=== PATIENT | female | born 1965 | race American Indian/Alaskan Native ===

== ENCOUNTER 2017-03-31 14:08 | Inpatient (IN) | payer BC ==
[2017-03-31 14:23] VITALS: BMI 29.1
--- NOTE | 2017-03-31 14:34 | C.PDOC ---
History Of Present Illness 51 year old patient, with a past medical history of cardiomyopathy, CAD, COPD, AICD last July, Asthma, Back Problems, CHF, HTN, presents to the ED complaining of chest pain on exertion. Patient states she has been compliant with her blood pressure medications and diuretics, but ran out of her diuretics about 2 days ago. She also notes lower leg and feet swelling today. She is having trouble walking. Patient was admitted in January 2017 for a similar complaint. Time Seen by Provider: 03/31/17 14:14 History Per: Patient Onset/Duration Of Symptoms: Worse Since (today) Current Symptoms Are (Timing): Still Present Initiating Event: Out Of Medications, Other Quality: Tightness Exacerbating Factor(s): Exertion Current Respiratory Medications: See Home Med List Severity: Mild Pain Scale Rating Of: 3 Reports Recently: Hospitalized (January 2017) Recent travel outside of the [place]: No Additional History Per: Prior Records Past Medical History Reviewed: Historical Data, Nursing Documentation, Vital Signs Vital Signs: Last Vital Signs Temp 98.1 F 03/31/17 14:19 Pulse 82 03/31/17 14:19 Resp 20 03/31/17 14:19 BP 143/93 H 03/31/17 14:19 Pulse Ox 97 03/31/17 15:08 - Medical History PMH: Asthma, Back Problems, CHF, HTN Surgical History: Pacemaker - [facility] Procedures FLUOROSCOPY OF LEFT HEART USING LOW OSMOLAR CONTRAST (03/09/16) LOCAL EXCIS BREAST LES (02/16/03) MEASURE OF CARDIAC SAMPL & PRESSURE, L HEART, PERC APPROACH (03/09/16) Family History: States: Unknown Family Hx - Social History Hx Tobacco Use: Yes Hx Alcohol Use: Yes Hx Substance Use: Yes (Smokes Crack Cocaine) - Immunization History Hx Tetanus Toxoid Vaccination: No Hx Influenza Vaccination: No Hx Pneumococcal Vaccination: No Review Of Systems Except As Marked, All Systems Reviewed And Found Negative. Cardiovascular: Positive for: Chest Pain (on exertion), Other (swelling to lower legs and feet bilaterally) Respiratory: Positive for: Shortness of Breath Physical Exam - Physical Exam Appears: Non-toxic, Other (mild respiratory distress) Skin: Warm, Dry Head: Atraumatic, Normacephalic Eye(s): bilateral: Normal Inspection, PERRL, EOMI Oral Mucosa: Moist Neck: Normal ROM, Supple Chest: Symmetrical Cardiovascular: Rhythm Regular Respiratory: Normal Breath Sounds, No Accessory Muscle Use, No Rales, No Rhonchi , No Wheezing Gastrointestinal/Abdominal: Soft, No Tenderness Back: Normal Inspection, No CVA Tenderness Extremity: Normal ROM, Pedal Edema (2+ pitting; bilaterally) Neurological/Psych: Oriented x3, Normal Speech, Normal Cognition, Normal Motor, Normal Sensation Gait: Other (trouble walking due to bilateral feet swelling) ED Course And Treatment - Laboratory Results Result Diagrams: 03/31/17 15:08 03/31/17 15:08 Lab Interpretation: Abnormal Interpretation Of Abnormal: BNP 4620, Troponin normal. ECG: Interpreted By Me ECG Rhythm: Sinus Rhythm (with left axis and LVH), ST/T Changes (T wave inversion I, AVL) ECG Interpretation: Abnormal O2 Sat by Pulse Oximetry: 94 (room air) Pulse Ox Interpretation: Abnormal - Radiology CXR: Interpreted by Me CXR Interpretation: Yes: Cardiomegaly, Other (Vascular congestion) Reevaluation Time: 16:17 Reassessment Condition: Improved - Physician Consult Information Time Consulting Physician Contacted: 16:17 Physician Contacted: Bonnie Amador Outcome Of Conversation: She knows the patient well and will keep her on Tele for cardiac evaluation and diuresis. Medical Decision Making Medical Decision Making: Plan: * EKG * Labs * Chest x-ray * Lasix Disposition - Disposition Disposition: HOSPITALIZED Disposition Time: 16:18 Condition: IMPROVED - POA Present On Arrival: None - Clinical Impression Clinical Impression: Acute CHF (congestive heart failure), Chest pain - Scribe Statement The provider has reviewed the documentation as recorded by the Scribyaritza Nelson Provider Attestation: All medical record entries made by the Suzanibyaritza were at my direction and personally dictated by me. I have reviewed the chart and agree that the record accurately reflects my personal performance of the history, physical exam, medical decision making, and the department course for this patient. I have also personally directed, reviewed, and agree with the discharge instructions and disposition.
--- NOTE | 2017-03-31 14:39 | RAD ---
PROCEDURE: CHEST RADIOGRAPH, 1 VIEW HISTORY: chest pain COMPARISON: 01/08/2017 FINDINGS: LUNGS: Clear. PLEURA: No pneumothorax or pleural fluid seen. CARDIOVASCULAR: Cardiomegaly. AICD. OSSEOUS STRUCTURES: No significant abnormalities. VISUALIZED UPPER ABDOMEN: Normal. OTHER FINDINGS: None. IMPRESSION: No active disease.
[2017-03-31 15:16] LABS: BASO # 0.1 K/uL (0.0-0.2); BASO % 1.2 % (0.0-2.0); EOS # 0.3 K/uL (0.0-0.7); EOS % 3.9 % (0.0-4.0); HEMATOCRIT 42.2 % (34.0-47.0); LYMPH % 13.4 % (20.0-40.0); MEAN CORPUSCULAR HEMOGLOBIN 31.7 pg (27.0-31.0); MEAN CORPUSCULAR HGB CONC 32.6 g/dL (33.0-37.0); MEAN PLATELET VOLUME 10.2 fL (7.2-11.7); MONO # 0.6 K/uL (0.0-0.8); MONO % 7.8 % (0.0-10.0); RED CELL DISTRIBUTION WIDTH 14.9 % (11.5-14.5); WHITE BLOOD COUNT 7.5 K/uL (4.8-10.8)
[2017-03-31 15:23] LABS: CHLORIDE 102 mmol/L (98-107); SODIUM 135 mmol/L (132-148)
[2017-03-31 15:24] LABS: MEAN CELL VOLUME 97.3 fL (81.0-99.0)
[2017-03-31 15:25] LABS: ALB/GLOB RATIO 1.1 (1.0-2.1); AST/SGOT 53 U/L (14-36); BILIRUBIN,TOTAL 0.7 mg/dL (0.2-1.3); CARBON DIOXIDE 23 mmol/L (22-30); GFR AFRICAN-AMERICAN > 60; TOTAL PROTEIN 6.3 g/dL (6.3-8.3)
[2017-03-31 15:26] LABS: ALKALINE PHOSPHATASE 76 U/L (38-126); ALT/SGPT 57 U/L (9-52); BLOOD UREA NITROGEN 16 mg/dL (7-17); CALCIUM 8.4 mg/dl (8.6-10.4); GLUCOSE,RANDOM 103 mg/dL (65-105)
[2017-03-31] MEDS: Enoxaparin 40 mg Syringe SC SCH (22:07)
[2017-04-01 09:35] LABS: CHOLESTEROL 128 mg/dL (0-199)
--- NOTE | 2017-04-01 10:01 | CP.PCM.CON ---
<Marcella Parkinson - Last Filed: 04/01/17 09:37> History of Present Illness - History of Present Illness History of Present Illness: Cardiology Consult Note- Dr. Cotton Reason: Worsening LE edema 51 year old AA female with PMHx of CHF with ICD for EF 25%, CAD, HTN, CONNIE was admitted overnight for chest pain. Cardiology evaluation requested for LE edema. Admits to running out of her Lasix and not taking medication for the past 2 days. Admits to shortness of breath with exertion, which has been worsening past few days along with the lower extremity edema. She sleeps with 2- 3 pillows and cannot lay flat. She is able to walk 1-2 blocks before becoming SOB. Denies waking up in the middle of the night SOB, but admits to using CPAP machine at night. She is able to complete ADLs at home on her own. Admits to sometimes needing help with her IADLs 2/2 SOB. Lives at home with her and daughter, who help her. PMHx: cardiomyopathy, CAD, COPD, CHF w/ICD last July for EF 25%, Asthma, Back Problems, HTN, CONNIE. Surgery Hx: Gastric bypass, 3 C- sections and 2 knee surgeries. Medications: reviewed on EMR. Allergies: none to medications Social Hx: Admits to alcohol use, tobacco use and occasional crack cocaine use. PMD: Dr. Amador. Troponins: 0.0260, 0.0320. CK-MB 3.60, CK 153. BNP 4,620 (2,060 on 01/12/17) EKG 03/31/17: Normal sinus rhythm 81bpm, Possible Left atrial enlargement, Left axis deviation, Left ventricular hypertrophy. CXR 03/31/17: shows no active dz. ECHO 03/10/16: diffuse cardiomyopathy, EF 15%, thickened aortic valve. Cardiac Cath 03/10/16: showed dilated non-ischemic cardiomyopathy with mild mitral insufficiency. Review of Systems - Constitutional Constitutional: absent: Chills, Fatigue, Fever - EENT Eyes: absent: Blurred Vision, Change in Vision - Cardiovascular Cardiovascular: Chest Pain, Dyspnea, Dyspnea on Exertion, Edema, Leg Edema. absent: Palpitations - Respiratory Respiratory: Dyspnea. absent: Cough - Gastrointestinal Gastrointestinal: absent: Abdominal Pain, Constipation, Diarrhea, Nausea, Vomiting - Genitourinary Genitourinary: absent: Difficulty Urinating, Dysuria - Musculoskeletal Musculoskeletal: absent: Numbness, Tingling - Integumentary Integumentary: Swelling. absent: Lesions - Neurological Neurological: Numbness, Tingling. absent: Dizziness, Headaches - Endocrine Endocrine: absent: Fatigue, Palpitations Past Patient History - Infectious Disease Hx of Infectious Diseases: None - Past Medical History & Family History Past Medical History?: Yes - Past Social History Smoking Status: Light Smoker < 10 Cigarettes Daily - CARDIAC Hx Congestive Heart Failure: Yes Hx Hypertension: Yes Hx Pacemaker: Yes - PULMONARY Hx Asthma: Yes - NEUROLOGICAL Hx Neurological Disorder: No - HEENT Hx HEENT Problems: No - RENAL Hx Chronic Kidney Disease: No - ENDOCRINE/METABOLIC Hx Endocrine Disorders: No - HEMATOLOGICAL/ONCOLOGICAL Hx Blood Disorders: No - INTEGUMENTARY Hx Dermatological Problems: No - MUSCULOSKELETAL/RHEUMATOLOGICAL Hx Falls: No - GASTROINTESTINAL Hx Gastrointestinal Disorders: No - GENITOURINARY/GYNECOLOGICAL Hx Genitourinary Disorders: No - PSYCHIATRIC Hx Substance Use: Yes (Smokes Crack Cocaine) - SURGICAL HISTORY Hx Surgeries: Yes Hx Gastric Bypass Surgery: Yes Hx Musculoskeletal Surgery: Yes (Right Carpal tunnel) Other/Comment: Left breast cyst excision - ANESTHESIA Hx Anesthesia: Yes Hx Anesthesia Reactions: No Hx Malignant Hyperthermia: No Meds Allergies/Adverse Reactions: Allergies Allergy/AdvReac Type Severity Reaction Status Date / Time No Known Allergies Allergy Verified 03/31/17 14:45 - Medications Medications: Current Medications Aspirin (Aspirin Chewable) 81 mg PO DAILY [facility] Enoxaparin Sodium (Lovenox) 40 mg SC DAILY [facility] Last Admin: 03/31/17 22:07 Dose: 40 mg Furosemide (Lasix) 40 mg IVP DAILY [facility] Pneumococcal Polyvalent Vaccine (Pneumovax 23 Vaccine) 0.5 ml IM .ONCE ONE Stop: 04/03/17 10:01 Spironolactone (Aldactone) 25 mg PO DAILY [facility] Physical Exam - Constitutional Appears: No Acute Distress - Head Exam Head Exam: NORMAL INSPECTION, NORMOCEPHALIC - Eye Exam Eye Exam: EOMI, Normal appearance - ENT Exam ENT Exam: Mucous Membranes Moist - Neck Exam Neck exam: Positive for: Normal Inspection, Tenderness - Respiratory Exam Respiratory Exam: Clear to Auscultation Bilateral, NORMAL BREATHING PATTERN. absent: Accessory Muscle Use - Cardiovascular Exam Cardiovascular Exam: REGULAR RHYTHM, +S1, +S2 - GI/Abdominal Exam GI & Abdominal Exam: Normal Bowel Sounds, Soft. absent: Tenderness - Extremities Exam Extremities exam: Positive for: pedal edema (2+). Negative for: tenderness - Back Exam Back exam: NORMAL INSPECTION - Neurological Exam Neurological exam: Alert, Oriented x3 - Psychiatric Exam Psychiatric exam: Normal Affect, Normal Mood - Skin Skin Exam: Normal Color, Warm Results - Vital Signs Recent Vital Signs: Last Vital Signs Temp 98.2 F 04/01/17 08:00 Pulse 75 04/01/17 08:00 Resp 20 04/01/17 08:00 BP 134/90 04/01/17 08:00 Pulse Ox 100 04/01/17 08:00 - Labs Result Diagrams: 03/31/17 15:08 03/31/17 15:08 Assessment & Plan - Assessment and Plan (Free Text) Assessment: (1) Acute CHF (congestive heart failure) Assessment and Plan: Patient with dilated cardiomyopathy and ICD placed Jul 2016 for low EF. Monitor on Telemetry. BNP elevated 4,620, compared to 2,060 January 2017. Patient would benefit from diuresis. Continue IV Lasix. Hold beta blockers due to history of cocaine use. ICD interrogated last admission January 2017. Continue: * Lasix 40 mg IVP daily * Aldactone 25 mg PO daily * Start low dose ARB BNP 4,620 (2,060 on 01/12/17) CXR 03/31/17: shows no active dz. EKG 03/31/17: Normal sinus rhythm 81bpm, Possible Left atrial enlargement, Left axis deviation, Left ventricular hypertrophy. ECHO 03/10/16: diffuse cardiomyopathy, EF 15%, thickened aortic valve. Status: Acute (2) Pedal edema Likely secondary to fluid overload. f/u LE venous dopplers. Continue IV Lasix. Status: Acute (3) Chest pain Troponins: 0.0260, 0.0320. CK-MB 3.60, CK 153. EKG 03/31/17: Normal sinus rhythm 81bpm, Possible Left atrial enlargement, Left axis deviation, Left ventricular hypertrophy. CXR 03/31/17: shows no active dz. Cardiac Cath 03/10/16: showed dilated non-ischemic cardiomyopathy with mild mitral insufficiency. Continue: * ASA 81 mg PO daily * Hold beta blockers due to history of cocaine use. Seen and discussed with Dr. Cotton. <Sebastian Cotton - Last Filed: 04/01/17 10:55> Meds - Medications Medications: Current Medications Aspirin (Aspirin Chewable) 81 mg PO DAILY [facility] Last Admin: 04/01/17 10:46 Dose: 81 mg Enoxaparin Sodium (Lovenox) 40 mg SC DAILY [facility] Last Admin: 04/01/17 10:46 Dose: 40 mg Furosemide (Lasix) 40 mg IVP DAILY [facility] Last Admin: 04/01/17 10:45 Dose: 40 mg Losartan Potassium (Cozaar) 25 mg PO DAILY [facility] Last Admin: 04/01/17 10:45 Dose: 25 mg Pneumococcal Polyvalent Vaccine (Pneumovax 23 Vaccine) 0.5 ml IM .ONCE ONE Stop: 04/03/17 10:01 Spironolactone (Aldactone) 25 mg PO DAILY [facility] Last Admin: 04/01/17 10:45 Dose: 25 mg Results - Vital Signs Recent Vital Signs: Last Vital Signs Temp 98.2 F 04/01/17 08:00 Pulse 75 04/01/17 08:00 Resp 20 04/01/17 08:00 BP 139/89 04/01/17 10:45 Pulse Ox 100 04/01/17 08:00 - Labs Result Diagrams: 03/31/17 15:08 04/01/17 08:54 Labs: Laboratory Results - last 24 hr 04/01/17 08:54 Sodium 137 Potassium 3.7 Chloride 100 Carbon Dioxide 28 Anion Gap 13 BUN 22 H Creatinine 1.1 Est GFR ( Amer) > 60 Est GFR (Non-Af Amer) 52 Random Glucose 103 Calcium 7.9 L Total Creatine Kinase 153 H CK-MB (Mass) 3.60 H Troponin I, Quant 0.0320 Triglycerides 44 D Cholesterol 128 LDL Cholesterol Direct 69 HDL Cholesterol 49 Attending/Attestation - Attestation I have personally seen and examined this patient.: Yes I have fully participated in the care of the patient.: Yes I have reviewed all pertinent clinical information: Yes Notes (Text): 04/01/17 10:54 continue lasix no beta-blockers cocaine history
[2017-04-01 10:10] LABS: CHLORIDE 100 mmol/L (98-107)
[2017-04-01 10:11] LABS: POTASSIUM 3.7 mmol/L (3.6-5.2); SODIUM 137 mmol/L (132-148)
[2017-04-01 10:13] LABS: GFR AFRICAN-AMERICAN > 60
[2017-04-01 10:14] LABS: BLOOD UREA NITROGEN 22 mg/dL (7-17); CALCIUM 7.9 mg/dl (8.6-10.4); CARBON DIOXIDE 28 mmol/L (22-30); GLUCOSE,RANDOM 103 mg/dL (65-105)
[2017-04-01] MEDS: Enoxaparin 40 mg Syringe SC SCH (10:46)
--- NOTE | 2017-04-01 17:27 | CP.PCM.HP ---
Present on Admission - Present on Admission Any Indicators Present on Admission: No Review of Systems - Review of Systems Systems not reviewed;Unavailable: Acuity of Condition - Constitutional Constitutional: Fatigue - EENT Eyes: As Per HPI Ears: As Per HPI Nose/Mouth/Throat: As Per HPI - Breasts Breasts: As Per HPI - Cardiovascular Cardiovascular: Chest Pain with Activity, Dyspnea, Pedal Edema - Respiratory Respiratory: Dyspnea, Dyspnea on Exertion, Pain with Coughing - Gastrointestinal Gastrointestinal: As Per HPI - Genitourinary Genitourinary: As Per HPI - Reproductive: Female Reproductive:Female: As Per HPI - Menstruation Menstruation: Post Menopausal - Integumentary Integumentary: As Per HPI - Neurological Neurological: As Per HPI - Psychiatric Psychiatric: As Per HPI - Endocrine Endocrine: As Per HPI - Hematologic/Lymphatic Hematologic: As Per HPI Past Patient History - Infectious Disease Hx of Infectious Diseases: None - Past Medical History & Family History Past Medical History?: Yes - Past Social History Smoking Status: Light Smoker < 10 Cigarettes Daily - CARDIAC Hx Congestive Heart Failure: Yes Hx Hypertension: Yes - PULMONARY Hx Asthma: Yes - NEUROLOGICAL Hx Neurological Disorder: No - HEENT Hx HEENT Problems: No - RENAL Hx Chronic Kidney Disease: No - ENDOCRINE/METABOLIC Hx Endocrine Disorders: No - HEMATOLOGICAL/ONCOLOGICAL Hx Blood Disorders: No - INTEGUMENTARY Hx Dermatological Problems: No - MUSCULOSKELETAL/RHEUMATOLOGICAL Hx Falls: No - GASTROINTESTINAL Hx Gastrointestinal Disorders: No - GENITOURINARY/GYNECOLOGICAL Hx Genitourinary Disorders: No - PSYCHIATRIC Hx Substance Use: Yes (Smokes Crack Cocaine) - SURGICAL HISTORY Hx Surgeries: Yes Hx Gastric Bypass Surgery: Yes Hx Musculoskeletal Surgery: Yes (Right Carpal tunnel) Other/Comment: Left breast cyst excision - ANESTHESIA Hx Anesthesia: Yes Hx Anesthesia Reactions: No Hx Malignant Hyperthermia: No Meds Allergies/Adverse Reactions: Allergies Allergy/AdvReac Type Severity Reaction Status Date / Time No Known Allergies Allergy Verified 03/31/17 14:45 Physical Exam - Constitutional Appears: In Acute Distress - Head Exam Head Exam: NORMAL INSPECTION - Eye Exam Eye Exam: Normal appearance Pupil Exam: NORMAL ACCOMODATION - ENT Exam ENT Exam: Normal Exam - Neck Exam Neck exam: Positive for: Full Rom - Respiratory Exam Respiratory Exam: Decreased Breath Sounds, Rales - Cardiovascular Exam Cardiovascular Exam: REGULAR RHYTHM - GI/Abdominal Exam GI & Abdominal Exam: Normal Bowel Sounds - Rectal Exam Rectal Exam: NORMAL INSPECTION - Extremities Exam Extremities exam: Positive for: pedal edema - Back Exam Back exam: NORMAL INSPECTION - Neurological Exam Neurological exam: Normal Gait - Psychiatric Exam Psychiatric exam: Normal Affect - Skin Skin Exam: Normal Color Results - Vital Signs Recent Vital Signs: Last Vital Signs Temp 98 F 04/01/17 16:51 Pulse 84 04/01/17 16:51 Resp 20 04/01/17 16:51 BP 129/89 04/01/17 16:51 Pulse Ox 98 04/01/17 16:51 - Labs Result Diagrams: 03/31/17 15:08 04/01/17 08:54 Labs: Laboratory Results - last 24 hr 04/01/17 08:54 Sodium 137 Potassium 3.7 Chloride 100 Carbon Dioxide 28 Anion Gap 13 BUN 22 H Creatinine 1.1 Est GFR ( Amer) > 60 Est GFR (Non-Af Amer) 52 Random Glucose 103 Calcium 7.9 L Total Creatine Kinase 153 H CK-MB (Mass) 3.60 H Troponin I, Quant 0.0320 Triglycerides 44 D Cholesterol 128 LDL Cholesterol Direct 69 HDL Cholesterol 49 Assessment & Plan - Assessment and Plan (Free Text) Assessment: ac sob chest pain cardiomyopathy chf cad copd Plan: admit to tele and asper orders - Date & Time Date: 04/01/17 Time: 17:30
--- NOTE | 2017-04-01 22:59 | CARD ---
APPROVED REPORT EKG Measurement Heart [id number] CO [id number] [id number] <Conclusion> Normal sinus rhythm Possible Left atrial enlargement Left axis deviation Left ventricular hypertrophy Abnormal ECG
[2017-04-02 08:07] LABS: POTASSIUM 4.3 mmol/L (3.6-5.2)
[2017-04-02 08:10] LABS: CALCIUM 8.1 mg/dl (8.6-10.4)
--- NOTE | 2017-04-02 10:17 | CP.PCM.PN ---
Subjective - Date & Time of Evaluation Date of Evaluation: 04/02/17 Time of Evaluation: 10:14 - Subjective Subjective: still sob very swallen legs [place] Objective - Vital Signs/Intake and Output Vital Signs (last 24 hours): Temp Pulse Resp BP Pulse Ox 97.7 F 75 18 132/85 98 04/02/17 08:15 04/02/17 08:15 04/02/17 08:15 04/02/17 08:15 04/02/17 08:15 - Medications Medications: Current Medications Aspirin (Aspirin Chewable) 81 mg PO DAILY [facility] Last Admin: 04/01/17 10:46 Dose: 81 mg Carvedilol (Coreg) 6.25 mg PO BID [facility] Last Admin: 04/01/17 17:59 Dose: 6.25 mg Enoxaparin Sodium (Lovenox) 40 mg SC DAILY [facility] Last Admin: 04/01/17 10:46 Dose: 40 mg Furosemide (Lasix) 40 mg IVP DAILY [facility] Last Admin: 04/01/17 10:45 Dose: 40 mg Losartan Potassium (Cozaar) 25 mg PO DAILY [facility] Last Admin: 04/01/17 10:45 Dose: 25 mg Pneumococcal Polyvalent Vaccine (Pneumovax 23 Vaccine) 0.5 ml IM .ONCE ONE Stop: 04/03/17 10:01 Spironolactone (Aldactone) 25 mg PO DAILY [facility] Last Admin: 04/01/17 10:45 Dose: 25 mg - Labs Labs: 04/02/17 07:25 - Constitutional Appears: Non-toxic - Head Exam Head Exam: NORMAL INSPECTION - Eye Exam Eye Exam: Normal appearance Pupil Exam: NORMAL ACCOMODATION - ENT Exam ENT Exam: Mucous Membranes Moist - Neck Exam Neck Exam: Full ROM - Respiratory Exam Respiratory Exam: Decreased Breath Sounds - Cardiovascular Exam Cardiovascular Exam: REGULAR RHYTHM - GI/Abdominal Exam GI & Abdominal Exam: Normal Bowel Sounds - Rectal Exam Rectal Exam: Deferred - Extremities Exam Extremities Exam: Pedal Edema - Back Exam Back Exam: NORMAL INSPECTION - Neurological Exam Neurological Exam: Alert, Normal Gait, Oriented x3 - Psychiatric Exam Psychiatric exam: Normal Affect - Skin Skin Exam: Normal Color - Additional Findings Additional findings: venous dopler negative Assessment and Plan - Assessment and Plan (Free Text) Assessment: alberta salgadot chf coain Plan: as per orders
--- NOTE | 2017-04-02 11:06 | VASCLAB ---
PROCEDURE: Lower Extremity Venous Duplex Exam. HISTORY: BLE Swelling PRIORS: None. TECHNIQUE: Bilateral common femoral, femoral, popliteal and posterior tibial, peroneal and great saphenous veins were evaluated. Flow was assessed with color Doppler, compressibility, assessment of phasic flow and augmentation response. Report prepared by JHON Boles, RVT FINDINGS: RIGHT: 1. Common Femoral Vein: 1.1. Compressibility - Fully compressible: Thrombus - None : Flow - Phasic: Augmentation -Normal: Reflux - None. 2. Femoral Vein: 2.1. Compressibility - Fully compressible: Thrombus - None : Flow - Phasic: Augmentation -Normal: Reflux - None. 3. Popliteal Vein: 3.1. Compressibility - Fully compressible: Thrombus - None : Flow - Phasic: Augmentation -Normal: Reflux - None. 4. Posterior Tibial Vein: 4.1. Compressibility - Fully compressible: Thrombus - None: Flow - Phasic: Augmentation -Normal: Reflux - None. 5. Peroneal Vein: 5.1. Compressibility - Fully compressible: Thrombus - None: Flow - Phasic: Augmentation -Normal: Reflux - None. 6. Great Saphenous Vein: 6.1. Compressibility - Fully compressible: Thrombus - None: Flow - Phasic: Augmentation - Normal: Reflux - None. LEFT: 1. Common Femoral Vein: 1.1. Compressibility - Fully compressible: Thrombus - None: Flow - Phasic: Augmentation -Normal: Reflux - None. 2. Femoral Vein: 2.1. Compressibility - Fully compressible: Thrombus - None: Flow - Phasic: Augmentation -Normal: Reflux - None. 3. Popliteal Vein: 3.1. Compressibility - Fully compressible: Thrombus - None : Flow - Phasic: Augmentation -Normal: Reflux - None. 4. Posterior Tibial Vein: 4.1. Compressibility - Fully compressible: Thrombus - None: Flow - Phasic: Augmentation -Normal: Reflux - None. 5. Peroneal Vein: 5.1. Compressibility - Fully compressible: Thrombus - None: Flow - Phasic: Augmentation -Normal: Reflux - None. 6. Great Saphenous Vein: 6.1. Compressibility - Fully compressible: Thrombus - None: Flow - Phasic: Augmentation - Normal: Reflux - None. OTHER FINDINGS: Right: None significant. Left: None significant. IMPRESSION: Right: No evidence of deep or superficial vein thrombosis of the right lower extremity. Normal valve function noted of the right side. Left: No evidence of deep or superficial vein thrombosis of the left lower extremity. Normal valve function noted of the left side.
[2017-04-02 11:25] LABS: POTASSIUM 4.1 mmol/L (3.6-5.2)
[2017-04-02 11:28] LABS: CALCIUM 8.1 mg/dl (8.6-10.4)
--- NOTE | 2017-04-02 12:09 | CP.PCM.PN ---
<Jan Vargas - Last Filed: 04/02/17 17:14> Subjective - Date & Time of Evaluation Date of Evaluation: 04/02/17 Time of Evaluation: 11:00 - Subjective Subjective: Cardiology Progress Note Dr. Cotton Patient seen and examined at bedside. No acute events overnight. Some LE swelling persists, but improved compared to swelling on arrival. Some SOB persists. Denies chest pain. All other ROS negative. Objective - Vital Signs/Intake and Output Vital Signs (last 24 hours): Temp Pulse Resp BP Pulse Ox 97.7 F 75 18 132/85 98 04/02/17 08:15 04/02/17 08:15 04/02/17 08:15 04/02/17 11:52 04/02/17 08:15 - Medications Medications: Current Medications Aspirin (Aspirin Chewable) 81 mg PO DAILY [facility] Last Admin: 04/02/17 11:51 Dose: 81 mg Calcium/Vitamin D (Oscal-D 250 Mg-125 Units Tab) 1 tab PO DAILY [facility] Carvedilol (Coreg) 6.25 mg PO BID [facility] Last Admin: 04/02/17 11:51 Dose: 6.25 mg Enoxaparin Sodium (Lovenox) 40 mg SC DAILY [facility] Last Admin: 04/01/17 10:46 Dose: 40 mg Furosemide (Lasix) 40 mg IVP DAILY [facility] Last Admin: 04/02/17 11:52 Dose: 40 mg Losartan Potassium (Cozaar) 25 mg PO DAILY [facility] Last Admin: 04/02/17 11:51 Dose: 25 mg Pneumococcal Polyvalent Vaccine (Pneumovax 23 Vaccine) 0.5 ml IM .ONCE ONE Stop: 04/03/17 10:01 Spironolactone (Aldactone) 25 mg PO DAILY [facility] Last Admin: 04/02/17 11:51 Dose: 25 mg - Labs Labs: 04/02/17 11:03 - Constitutional Appears: Non-toxic, No Acute Distress, Chronically Ill - Head Exam Head Exam: ATRAUMATIC, NORMAL INSPECTION, NORMOCEPHALIC - Eye Exam Eye Exam: EOMI, Normal appearance. absent: Conjunctival injection, Scleral icterus Pupil Exam: absent: Irregular, Unequal - ENT Exam ENT Exam: Mucous Membranes Moist - Neck Exam Neck Exam: absent: Tenderness - Respiratory Exam Respiratory Exam: Clear to Ausculation Bilateral, NORMAL BREATHING PATTERN. absent: Accessory Muscle Use, Chest Wall Tenderness, Decreased Breath Sounds, Rales, Rhonchi, Wheezes - Cardiovascular Exam Cardiovascular Exam: REGULAR RHYTHM, RRR, +S1, +S2. absent: Bradycardia, Tachycardia, Irregular Rhythm, +S4 - GI/Abdominal Exam GI & Abdominal Exam: Soft, Normal Bowel Sounds. absent: Distended, Firm, Rigid , Tenderness, Diminished Bowel Sounds, Hyperactive Bowel Sounds, Hypoactive Bowel Sounds - Extremities Exam Extremities Exam: Pedal Edema (+1-2 pitting edema bilaterally). absent: Calf Tenderness, Tenderness - Neurological Exam Neurological Exam: Alert, Awake - Psychiatric Exam Psychiatric exam: Anxious, Normal Affect - Skin Skin Exam: Dry, Intact, Normal Color, Warm Assessment and Plan (1) Acute CHF (congestive heart failure) Assessment & Plan: CXR 03/31/17: shows no active dz. EKG 03/31/17: Normal sinus rhythm 81bpm, Possible Left atrial enlargement, Left axis deviation, Left ventricular hypertrophy. ECHO 03/10/16: diffuse cardiomyopathy, EF 15%, thickened aortic valve. BNP 4,620 (2,060 on 01/12/17) -Patient with dilated cardiomyopathy and ICD placed Jul 2016 for low EF. -Monitor on Telemetry. -BNP elevated 4,620, compared to 2,060 January 2017. -Patient would benefit from diuresis. Continue IV Lasix. -Hold beta blockers due to history of cocaine use. -ICD interrogated last admission January 2017. -Continue: Lasix 40 mg IVP daily, Aldactone 25 mg PO daily, Cozaar Status: Acute (2) Pedal edema Assessment & Plan: -Likely secondary to fluid overload. -LE venous dopplers negative for DVT -Continue IV Lasix. Status: Acute (3) Chest pain Assessment & Plan: Troponins: 0.0260, 0.0320. CK-MB 3.60, CK 153. EKG 03/31/17: Normal sinus rhythm 81bpm, Possible Left atrial enlargement, Left axis deviation, Left ventricular hypertrophy. CXR 03/31/17: shows no active dz. Cardiac Cath 03/10/16: showed dilated non-ischemic cardiomyopathy with mild mitral insufficiency. -Continue ASA 81 mg PO daily -Hold beta blockers due to history of cocaine use. Status: Acute - Assessment and Plan (Free Text) Assessment: Case discussed with Dr. Cotton. <Sebastian Cotton - Last Filed: 04/05/17 17:41> Objective - Vital Signs/Intake and Output Vital Signs (last 24 hours): Temp Pulse Resp BP Pulse Ox 98.2 F 76 20 122/78 98 04/03/17 16:32 04/03/17 17:21 04/03/17 16:32 04/03/17 17:21 04/03/17 16:32 - Labs Labs: 04/03/17 07:11 04/03/17 07:11 Attending/Attestation - Attestation I have personally seen and examined this patient.: Yes I have fully participated in the care of the patient.: Yes I have reviewed all pertinent clinical information, including history, physical exam and plan: Yes Notes (Text): 04/05/17 17:41 Still edema feeling better
[2017-04-02] MEDS: Calcium-Vit D 250 mg-125 Units Tab UD PO SCH (13:47)
[2017-04-02] MEDS: Enoxaparin 40 mg Syringe SC SCH (13:48)
[2017-04-03 00:13] VITALS: RESP 20
--- NOTE | 2017-04-03 06:37 | CP.PCM.PN ---
Subjective - Date & Time of Evaluation Date of Evaluation: 04/03/17 Time of Evaluation: 06:20 - Subjective Subjective: Tolerating PO less edema Objective - Vital Signs/Intake and Output Vital Signs (last 24 hours): Temp Pulse Resp BP Pulse Ox 97.9 F 76 20 142/93 H 97 04/03/17 00:00 04/03/17 00:00 04/03/17 00:00 04/03/17 00:00 04/03/17 00:00 Intake and Output: 04/02/17 04/03/17 18:59 06:59 Intake Total 480 Balance 480 - Medications Medications: Current Medications Acetaminophen (Tylenol 325mg Tab) 650 mg PO Q6 PRN PRN Reason: Pain, moderate (4-7) Last Admin: 04/02/17 19:39 Dose: 650 mg Aspirin (Aspirin Chewable) 81 mg PO DAILY [facility] Last Admin: 04/02/17 11:51 Dose: 81 mg Calcium/Vitamin D (Oscal-D 250 Mg-125 Units Tab) 1 tab PO DAILY [facility] Last Admin: 04/02/17 13:47 Dose: 1 tab Carvedilol (Coreg) 6.25 mg PO BID [facility] Last Admin: 04/02/17 17:48 Dose: 6.25 mg Enoxaparin Sodium (Lovenox) 40 mg SC DAILY [facility] Last Admin: 04/02/17 13:48 Dose: 40 mg Furosemide (Lasix) 40 mg IVP DAILY [facility] Last Admin: 04/02/17 11:52 Dose: 40 mg Losartan Potassium (Cozaar) 25 mg PO DAILY [facility] Last Admin: 04/02/17 11:51 Dose: 25 mg Pneumococcal Polyvalent Vaccine (Pneumovax 23 Vaccine) 0.5 ml IM .ONCE ONE Stop: 04/03/17 10:01 Spironolactone (Aldactone) 25 mg PO DAILY [facility] Last Admin: 04/02/17 11:51 Dose: 25 mg - Labs Labs: 04/02/17 11:03 - Constitutional Appears: Non-toxic - Head Exam Head Exam: NORMOCEPHALIC - Eye Exam Eye Exam: Normal appearance - ENT Exam ENT Exam: Mucous Membranes Moist - Respiratory Exam Respiratory Exam: Rhonchi - Cardiovascular Exam Cardiovascular Exam: REGULAR RHYTHM - GI/Abdominal Exam GI & Abdominal Exam: Normal Bowel Sounds - Extremities Exam Extremities Exam: Pedal Edema - Neurological Exam Neurological Exam: Alert - Psychiatric Exam Psychiatric exam: Normal Affect - Skin Skin Exam: Intact Assessment and Plan (1) Acute CHF (congestive heart failure) Assessment & Plan: ontinue diuresis and chf meds. ICD stable Status: Acute
[2017-04-03 07:37] LABS: HEMATOCRIT 38.2 % (34.0-47.0); MEAN CELL VOLUME 98.6 fL (81.0-99.0); MEAN CORPUSCULAR HEMOGLOBIN 32.3 pg (27.0-31.0); MEAN CORPUSCULAR HGB CONC 32.7 g/dL (33.0-37.0); MEAN PLATELET VOLUME 10.5 fL (7.2-11.7); RED CELL DISTRIBUTION WIDTH 15.5 % (11.5-14.5); WHITE BLOOD COUNT 7.1 K/uL (4.8-10.8)
[2017-04-03 08:01] LABS: POTASSIUM 4.6 mmol/L (3.6-5.2)
[2017-04-03 08:05] LABS: CALCIUM 8.1 mg/dl (8.6-10.4)
[2017-04-03] MEDS ORDERED: Pneumococcal 23-Valent Vaccine IM ONE (10:00)
[2017-04-03] MEDS: Enoxaparin 40 mg Syringe SC SCH (10:08)
[2017-04-03] MEDS: Calcium-Vit D 250 mg-125 Units Tab UD PO SCH (12:37)
--- NOTE | 2017-04-03 13:06 | RAD ---
PROCEDURE: Radiographs of the Chest and Right Ribs. HISTORY: pain under right breast COMPARISON: 03/31/2017. TECHNIQUE: Frontal radiograph of the chest and multiple oblique radiographs of the right ribs were obtained. FINDINGS: RIGHT RIBS: No fracture or focal lesion visualized. LUNGS: Clear. PLEURA: No pneumothorax or pleural fluid. CARDIOVASCULAR: Cardiomegaly. No evidence of acute, significant cardiovascular disease. Position/ configuration of pacemaker Satisfactory. OTHER FINDINGS: None. IMPRESSION: Unremarkable radiographs of the chest and right ribs. No right rib fracture.
--- NOTE | 2017-04-03 14:46 | CP.PCM.PN ---
Subjective - Date & Time of Evaluation Date of Evaluation: 04/03/17 Time of Evaluation: 14:44 - Subjective Subjective: feels beyter less sob Objective - Vital Signs/Intake and Output Vital Signs (last 24 hours): Temp Pulse Resp BP Pulse Ox 98.3 F 73 20 128/75 99 04/03/17 07:32 04/03/17 07:32 04/03/17 07:32 04/03/17 10:07 04/03/17 07:32 Intake and Output: 04/03/17 04/03/17 06:59 18:59 Intake Total 100 Balance 100 - Medications Medications: Current Medications Acetaminophen (Tylenol 325mg Tab) 650 mg PO Q6 PRN PRN Reason: Pain, moderate (4-7) Last Admin: 04/02/17 19:39 Dose: 650 mg Aspirin (Aspirin Chewable) 81 mg PO DAILY [facility] Last Admin: 04/03/17 10:06 Dose: 81 mg Calcium/Vitamin D (Oscal-D 250 Mg-125 Units Tab) 1 tab PO DAILY [facility] Last Admin: 04/03/17 12:37 Dose: 1 tab Carvedilol (Coreg) 6.25 mg PO BID [facility] Last Admin: 04/03/17 10:06 Dose: 6.25 mg Enoxaparin Sodium (Lovenox) 40 mg SC DAILY [facility] Last Admin: 04/03/17 10:08 Dose: 40 mg Furosemide (Lasix) 40 mg IVP DAILY [facility] Last Admin: 04/03/17 10:07 Dose: 40 mg Losartan Potassium (Cozaar) 25 mg PO DAILY [facility] Last Admin: 04/03/17 10:06 Dose: 25 mg Spironolactone (Aldactone) 25 mg PO DAILY [facility] Last Admin: 04/03/17 10:06 Dose: 25 mg - Labs Labs: 04/03/17 07:11 04/03/17 07:11 - Constitutional Appears: Non-toxic - Head Exam Head Exam: NORMAL INSPECTION - Eye Exam Eye Exam: Normal appearance Pupil Exam: NORMAL ACCOMODATION - ENT Exam ENT Exam: Normal Exam - Neck Exam Neck Exam: Normal Inspection - Respiratory Exam Respiratory Exam: Clear to Ausculation Bilateral - Cardiovascular Exam Cardiovascular Exam: REGULAR RHYTHM - GI/Abdominal Exam GI & Abdominal Exam: Normal Bowel Sounds - Rectal Exam Rectal Exam: NORMAL INSPECTION - Extremities Exam Extremities Exam: Pedal Edema - Back Exam Back Exam: NORMAL INSPECTION - Neurological Exam Neurological Exam: Normal Gait - Psychiatric Exam Psychiatric exam: Normal Affect Assessment and Plan - Assessment and Plan (Free Text) Assessment: chf htn cardiomyopathy Plan: disch home today cont all current med f/u in my ofice in one weeke
--- NOTE | 2017-04-03 14:59 | PCM.HF ---
Heart Failure Core Measure - Heart Failure Ejection Fraction: Less Than 40 % JORGE Inhibitor Prescribed: Yes Beta-Ghanshyam Prescribed: Carvedilol Angiotensin II Receptor Ghanshyam Prescribed: No Contraindication/Reason for not providing: on jorge AnticoagulationTherapy for Atrial Fibrillation/Atrialflutter: No Contraindication/Reason for not providing: no hx of afib Aldosterone Antagonist Prescribed: Yes Hydralazine Nitrate Prescribed: No Contraindication/Reason for not providing: BP RUNNING LOW Implantable Cardioverter Defibrillator Therapy: Yes Cardiac Resynchronization Therapy Prescribed: No Contraindication/Reason for not providing: PT HAS ICD - Follow up Will be discharged to: Home Follow Up Date (must be within 7 days from discharge): 04/06/17 Follow Up Time: 09:00
[2017-04-03 16:34] VITALS: TEMP 98.2; O2SAT 98
[2017-04-03 17:21] VITALS: BP 122/78; PULSE 76
--- NOTE | 2017-04-04 20:18 | CARD ---
APPROVED REPORT EXAM: Two-dimensional and M-mode echocardiogram with Doppler and color Doppler. Other Information Quality : GoodRhythm : NSR INDICATION Dyspnea Chest Pain Congestive Heart Failure COPD M-Mode DIMENSIONS RVDd0.80 (2.1-3.2cm)Left Atrium (MM)4.44 (2.5-4.0cm) IVSd0.94 (0.7-1.1cm)Aortic Root2.95 (2.2-3.7cm) LVDd7.43 (4.0-5.6cm)Aortic Cusp Exc.2.22 (1.5-2.0cm) PWd0.97 (0.7-1.1cm)FS (%) 22 % LVDs5.76 (2.0-3.8cm)LVEF (%)44 (>50%) Mitral Valve MV E [id number]/sE/A ratio0.0 TDI E/Lateral E'0.0E/Medial E'0.0 Tricuspid Valve TR Peak [id number]/sTR Peak [id number] LEFT VENTRICLE The Left Ventricle is severely dilated. There is normal left ventricular wall thickness. Left ventricle systolic function is moderately to severely impaired. The Ejection Fraction is 35-40%. There is global hypokinesis of the left ventricle. The left ventricular diastolic function is normal. No left ventricle thrombus noted on this study. RIGHT VENTRICLE The right ventricle is normal size. There is normal right ventricular wall thickness. Systolic function is moderately reduced. ATRIA The left atrium is moderately dilated. The right atrium size is normal. The interatrial septum bows toward right atrium consistent with elevated left atrial pressure. AORTIC VALVE The aortic valve is normal in structure. No aortic regurgitation is present. There is no aortic valvular stenosis. There is no aortic valvular vegetation. MITRAL VALVE The mitral valve is normal in structure. There is no evidence of mitral valve prolapse. There is no mitral valve stenosis. Mitral regurgitation is mild. TRICUSPID VALVE The tricuspid valve is normal in structure. There is mild to moderate tricuspid regurgitation. Right ventricular systolic pressure is estimated at 40-50 mmHg. There is moderate pulmonary hypertension. PULMONIC VALVE The pulmonic valve is not well visualized. There is mild to moderate pulmonic valvular regurgitation. GREAT VESSELS The aortic root is normal in size. PERICARDIAL EFFUSION There is no significant pericardial effusion. <Conclusion> Dilated cardiomyopathy. Left ventricle systolic function is moderately to severely impaired. The Ejection Fraction is 35-40%. No aortic regurgitation is present. Mitral regurgitation is mild. There is mild to moderate tricuspid regurgitation. There is moderate pulmonary hypertension. There is mild to moderate pulmonic valvular regurgitation.
--- NOTE | 2017-04-06 12:45 | CARD ---
APPROVED REPORT EKG Measurement Heart [id number] <Conclusion> Sinus rhythm with occasional premature ventricular complexes Left axis deviation T wave abnormality, consider anterior ischemia Abnormal ECG
== END 2017-04-03 20:46 | disposition home or self-care (01) | DRG 293 ==
LOC: C.ER 14:08 → C.9E 16:12 → C.5T 17:42 → OBSVTOIN 04-02 10:52
PROVIDERS: ADMIT Internal Medicine; ATTEND Internal Medicine
DX: I11.0 Hypertensive heart disease with heart failure (principal); I42.0 Dilated cardiomyopathy; J45.909 Unspecified asthma, uncomplicated; I50.9 Heart failure, unspecified; I25.10 Atherosclerotic heart disease of native coronary artery without angina pectoris; J44.9 Chronic obstructive pulmonary disease, unspecified; Z95.810 Presence of automatic (implantable) cardiac defibrillator; F14.90 Cocaine use, unspecified, uncomplicated; F17.210 Nicotine dependence, cigarettes, uncomplicated; Z98.84 Bariatric surgery status; I34.0 Nonrheumatic mitral (valve) insufficiency

== ENCOUNTER 2017-06-05 13:33 | Observation (INO) | payer BC ==
[2017-06-05 13:33] VITALS: BMI 29.1
[2017-06-05 14:24] LABS: BASO % 0.3 % (0.0-2.0); EOS # 0.1 K/uL (0.0-0.7); EOS % 1.4 % (0.0-4.0); LYMPH # 0.3 K/uL (1.0-4.3); LYMPH % 7.9 % (20.0-40.0); MEAN CELL VOLUME 98.9 fL (81.0-99.0); MEAN CORPUSCULAR HEMOGLOBIN 32.9 pg (27.0-31.0); MEAN CORPUSCULAR HGB CONC 33.3 g/dL (33.0-37.0); MEAN PLATELET VOLUME 9.5 fL (7.2-11.7); MONO # 0.2 K/uL (0.0-0.8); MONO % 5.4 % (0.0-10.0); WHITE BLOOD COUNT 4.1 K/uL (4.8-10.8)
[2017-06-05 14:30] LABS: PLATELET COUNT 126 K/uL (130-400)
[2017-06-05 14:33] LABS: CHLORIDE 97 mmol/L (98-107); SODIUM 139 mmol/L (132-148)
--- NOTE | 2017-06-05 14:34 | C.PDOC ---
History Of Present Illness 51 year old female with a history of HTN and cardiomyopathy presents to the emergency department with complaints of chest pain and shortness of breath beginning this morning. Patient also notes he has a defibrillator and denies fever, palpitations, or other complaints at this time. Time Seen by Provider: 06/05/17 13:47 Chief Complaint (Nursing): Chest Pain History Per: Patient History/Exam Limitations: no limitations Onset/Duration Of Symptoms: Hrs Current Symptoms Are (Timing): Still Present Quality: "Pain" Associated Symptoms: denies: Nausea, Dyspnea, Diaphoresis, Syncope Recent travel outside of the [place]: No Past Medical History Reviewed: Historical Data, Nursing Documentation, Vital Signs Vital Signs: Last Vital Signs Temp 97.8 F 06/05/17 13:41 Pulse 66 06/05/17 13:41 Resp 18 06/05/17 13:41 BP 118/74 06/05/17 13:41 Pulse Ox 99 06/05/17 15:20 - Medical History PMH: Asthma, Back Problems, CHF, HTN Surgical History: Pacemaker Other Surgeries: AICD - [facility] Procedures FLUOROSCOPY OF LEFT HEART USING LOW OSMOLAR CONTRAST (03/09/16) LOCAL EXCIS BREAST LES (02/16/03) MEASURE OF CARDIAC SAMPL & PRESSURE, L HEART, PERC APPROACH (03/09/16) Family History: States: Unknown Family Hx - Social History Hx Tobacco Use: Yes Hx Alcohol Use: No Hx Substance Use: Yes (Smokes Crack Cocaine) - Immunization History Hx Tetanus Toxoid Vaccination: No Hx Influenza Vaccination: No Hx Pneumococcal Vaccination: No Review Of Systems Constitutional: Negative for: Fever, Chills Cardiovascular: Positive for: Chest Pain. Negative for: Palpitations Respiratory: Positive for: Shortness of Breath. Negative for: Cough Gastrointestinal: Negative for: Nausea, Vomiting, Abdominal Pain, Diarrhea Physical Exam - Physical Exam Appears: Non-toxic, No Acute Distress Skin: Warm, Dry Head: Atraumatic Eye(s): bilateral: Normal Inspection, PERRL, EOMI Oral Mucosa: Moist Neck: Supple Chest: Symmetrical, No Deformity Cardiovascular: Rhythm Regular Respiratory: Normal Breath Sounds, No Rhonchi, No Wheezing Gastrointestinal/Abdominal: Soft, No Tenderness, No Distention, No Guarding, No Rebound Extremity: Normal ROM, No Tenderness Neurological/Psych: Oriented x3, Normal Speech, Normal Cognition, Normal Cranial Nerves, Normal Motor, Normal Sensation ED Course And Treatment - Laboratory Results Result Diagrams: 06/05/17 14:16 06/05/17 14:16 Lab Interpretation: No Acute Changes ECG: Interpreted By Me ECG Rhythm: Sinus Rhythm, R BBB, Nonspecific Changes ECG Interpretation: No Acute Changes Rate From EC O2 Sat by Pulse Oximetry: 99 (room air ) Pulse Ox Interpretation: Normal - Radiology CXR: Interpreted by Me CXR Interpretation: Yes: No Acute Disease Progress Note: EKG, CXR, UA, and labs were performed. Reassessment Condition: Improved - Physician Consult Information Physician Contacted: Bonnie Amador Outcome Of Conversation: admit Disposition Discussed With : Bonnie Amador Doctor Will See Patient In The: Hospital - Disposition Disposition: HOSPITALIZED Disposition Time: 15:30 Condition: STABLE - POA Present On Arrival: None - Clinical Impression Clinical Impression: Chest pain, Dyspnea, Cardiomyopathy - Scribe Statement The provider has reviewed the documentation as recorded by the Scribe Mary Massey All medical record entries made by the Scribe were at my direction and personally dictated by me. I have reviewed the chart and agree that the record accurately reflects my personal performance of the history, physical exam, medical decision making, and the department course for this patient. I have also personally directed, reviewed, and agree with the discharge instructions and disposition. Decision To Admit - Pt Status Changed To: Hospital Disposition Of: Observation - . Bed Request Type: Telemetry Admitting Physician: Bonnie Amador Patient Diagnosis: Chest pain, Dyspnea
[2017-06-05 14:35] LABS: BILIRUBIN,TOTAL 0.9 mg/dL (0.2-1.3); GFR AFRICAN-AMERICAN > 60
[2017-06-05 14:36] LABS: ALB/GLOB RATIO 1.1 (1.0-2.1); ALKALINE PHOSPHATASE 63 U/L (38-126); ALT/SGPT 39 U/L (9-52); AST/SGOT 37 U/L (14-36); BLOOD UREA NITROGEN 21 mg/dL (7-17); CARBON DIOXIDE 29 mmol/L (22-30); GLUCOSE,RANDOM 81 mg/dL (65-105)
[2017-06-05 14:37] LABS: CALCIUM 8.5 mg/dl (8.6-10.4)
[2017-06-05 14:38] LABS: RBC URINE 2 /hpf (0-3); URINE BILIRUBIN NEGATIVE (NEGATIVE); URINE BLOOD NEGATIVE (NEGATIVE); URINE COLOR Yellow (YELLOW); URINE GLUCOSE (UA) NORMAL (Normal); URINE KETONE NEGATIVE (NEGATIVE); URINE LEUKOCYTE ESTERASE NEG Leu/uL (Negative); URINE PROTEIN NEGATIVE (NEGATIVE); URINE UROBILINOGEN NORMAL mg/dL (0.2-1.0)
[2017-06-05 14:58] LABS: BASOPHIL 1 % (0-2); EOSINOPHIL 1 % (0-4); NEUTROPHIL 86 % (50-75); TOTAL CELLS COUNTED 100
[2017-06-05 14:59] LABS: LARGE PLATELETS PRESENT
--- NOTE | 2017-06-05 15:16 | RAD ---
HISTORY: COMPARISON: 03/31/2017. TECHNIQUE: Chest PA and lateral FINDINGS: LINES AND TUBES: None. LUNG AND PLEURA: The lungs are well inflated and clear. There are no pleural effusions or pneumothorax. HEART AND MEDIASTINUM: There is persistent moderate cardiomegaly. The hilar and mediastinal contours are within normal limits. There is stable position of a left-sided AICD. SKELETAL STRUCTURES: The bony structures are within normal limits for the patient's age. VISUALIZED UPPER ABDOMEN: Normal. OTHER FINDINGS: None. IMPRESSION: No active pulmonary disease. Persistent moderate cardiomegaly.
[2017-06-05] MEDS: Alum-Mag Hydrox-Simethicone Susp (30 mL) PO PRN (22:43)
[2017-06-06] MEDS: Omega-3-Acid Ethyl Esters 1 GM Cap PO SCH (09:25)
[2017-06-06] MEDS: Multivitamin With Minerals Tab PO SCH (09:25)
[2017-06-06] MEDS: Calcium-Vit D 250 mg-125 Units Tab UD PO SCH (09:26)
--- NOTE | 2017-06-06 10:53 | CP.PCM.HP ---
History of Present Illness - History of Present Illness History of Present Illness: pt came in for sob and chest pain hx of chf defirilator today feels beter wats to go home Present on Admission - Present on Admission Any Indicators Present on Admission: No Review of Systems - Constitutional Constitutional: As Per HPI - EENT Eyes: Floaters Ears: As Per HPI Nose/Mouth/Throat: As Per HPI - Breasts Breasts: As Per HPI - Cardiovascular Cardiovascular: Chest Pain at Rest, Dyspnea - Respiratory Respiratory: Dyspnea - Gastrointestinal Gastrointestinal: As Per HPI - Genitourinary Genitourinary: As Per HPI - Reproductive: Female Reproductive:Female: As Per HPI - Menstruation Menstruation: As Per HPI - Musculoskeletal Musculoskeletal: Arthralgias - Integumentary Integumentary: As Per HPI - Neurological Neurological: As Per HPI - Endocrine Endocrine: As Per HPI - Hematologic/Lymphatic Hematologic: As Per HPI Past Patient History - Infectious Disease Hx of Infectious Diseases: None - Past Medical History & Family History Past Medical History?: Yes - Past Social History Smoking Status: Former Smoker - CARDIAC Hx Congestive Heart Failure: Yes Hx Hypertension: Yes Hx Internal Defibrillator: Yes Hx Pacemaker: Yes - PULMONARY Hx Asthma: Yes - NEUROLOGICAL Hx Neurological Disorder: No - HEENT Hx HEENT Problems: No - RENAL Hx Chronic Kidney Disease: No - ENDOCRINE/METABOLIC Hx Endocrine Disorders: No - HEMATOLOGICAL/ONCOLOGICAL Hx Blood Disorders: No - INTEGUMENTARY Hx Dermatological Problems: No - MUSCULOSKELETAL/RHEUMATOLOGICAL Hx Falls: No - GASTROINTESTINAL Hx Gastrointestinal Disorders: Yes Hx Gastroesophageal Reflux: Yes - GENITOURINARY/GYNECOLOGICAL Hx Genitourinary Disorders: No - PSYCHIATRIC Hx Substance Use: Yes - SURGICAL HISTORY Hx Surgeries: Yes Hx Gastric Bypass Surgery: Yes Hx Musculoskeletal Surgery: Yes (Right Carpal tunnel) Other/Comment: Left breast cyst excision - ANESTHESIA Hx Anesthesia: Yes Hx Anesthesia Reactions: No Hx Malignant Hyperthermia: No Meds Allergies/Adverse Reactions: Allergies Allergy/AdvReac Type Severity Reaction Status Date / Time No Known Allergies Allergy Verified 03/31/17 14:45 Physical Exam - Constitutional Appears: Non-toxic - Head Exam Head Exam: NORMAL INSPECTION - Eye Exam Eye Exam: Normal appearance Pupil Exam: NORMAL ACCOMODATION - ENT Exam ENT Exam: Mucous Membranes Moist - Neck Exam Neck exam: Positive for: Full Rom - Respiratory Exam Respiratory Exam: Decreased Breath Sounds - Cardiovascular Exam Cardiovascular Exam: REGULAR RHYTHM - GI/Abdominal Exam GI & Abdominal Exam: Normal Bowel Sounds - Rectal Exam Rectal Exam: Deferred - Exam Exam: NORMAL INSPECTION - Extremities Exam Extremities exam: Positive for: normal inspection - Back Exam Back exam: NORMAL INSPECTION - Psychiatric Exam Psychiatric exam: Normal Mood - Skin Skin Exam: Normal Color Results - Vital Signs Recent Vital Signs: Last Vital Signs Temp 98.3 F 06/06/17 08:31 Pulse 65 06/06/17 08:31 Resp 20 06/06/17 08:31 BP 128/81 06/06/17 09:26 Pulse Ox 100 06/06/17 08:31 - Labs Result Diagrams: 06/05/17 14:16 06/05/17 14:16 Labs: Laboratory Results - last 24 hr 06/05/17 06/06/17 20:28 04:30 Total Creatine Kinase 57 54 CK-MB (Mass) 1.13 0.83 Troponin I, Quant < 0.0120 < 0.0120 NT-Pro-B Natriuret Pep 1980 H Assessment & Plan - Assessment and Plan (Free Text) Assessment: ac chest pain ischemia chf pace maker hyper glyceamia plan cont as per orders - Date & Time Date: 06/06/17 Time: 11:04
--- NOTE | 2017-06-06 13:48 | CP.PCM.CON ---
History of Present Illness - History of Present Illness History of Present Illness: 51 y/o presents with fatigue and chest pain x 2-3 days: She reports pain around lower rib margins L and R side referred from pain that started around the neck: intermittent, no relation to activity, no associated diaphoresis, edema, congestion, cough, fevers, chills, palpitatin, dizziness or syncope. In addition she experiences fatigue for 2-3 days: no PND or orthopnea. generalized weakness and NYHA 2 dyspnea. Cardiac Hx; Severe NICM, normal coronaries by cath 03/2016; eventually recieved an AICD PMHX: HTN, LIPIDS, Hx of ETOH abuse, prior smoker Surgical history: Gastric bypass SOC: Prior ETOH abuse, Prios smoking, no IVDA ROS: All 12 systems negative except for that in HPI Review of Systems - Review of Systems All systems: reviewed and no additional remarkable complaints except Past Patient History - Infectious Disease Hx of Infectious Diseases: None - Past Medical History & Family History Past Medical History?: Yes - Past Social History Smoking Status: Former Smoker - CARDIAC Hx Congestive Heart Failure: Yes Hx Hypertension: Yes Hx Internal Defibrillator: Yes Hx Pacemaker: Yes - PULMONARY Hx Asthma: Yes - NEUROLOGICAL Hx Neurological Disorder: No - HEENT Hx HEENT Problems: No - RENAL Hx Chronic Kidney Disease: No - ENDOCRINE/METABOLIC Hx Endocrine Disorders: No - HEMATOLOGICAL/ONCOLOGICAL Hx Blood Disorders: No - INTEGUMENTARY Hx Dermatological Problems: No - MUSCULOSKELETAL/RHEUMATOLOGICAL Hx Falls: No - GASTROINTESTINAL Hx Gastrointestinal Disorders: Yes Hx Gastroesophageal Reflux: Yes - GENITOURINARY/GYNECOLOGICAL Hx Genitourinary Disorders: No - PSYCHIATRIC Hx Substance Use: Yes - SURGICAL HISTORY Hx Surgeries: Yes Hx Gastric Bypass Surgery: Yes Hx Musculoskeletal Surgery: Yes (Right Carpal tunnel) Other/Comment: Left breast cyst excision - ANESTHESIA Hx Anesthesia: Yes Hx Anesthesia Reactions: No Hx Malignant Hyperthermia: No Meds Allergies/Adverse Reactions: Allergies Allergy/AdvReac Type Severity Reaction Status Date / Time No Known Allergies Allergy Verified 03/31/17 14:45 - Medications Medications: Current Medications Al Hydrox/Mg Hydrox/Simethicone (Maalox Plus 30 Ml) 30 ml PO DAILY PRN PRN Reason: Indigestion / Heartburn Last Admin: 06/05/17 22:43 Dose: 30 ml Aspirin (Aspirin Chewable) 81 mg PO DAILY [facility] Last Admin: 06/06/17 09:24 Dose: 81 mg Calcium/Vitamin D (Oscal-D 250 Mg-125 Units Tab) 1 tab PO DAILY [facility] Last Admin: 06/06/17 09:26 Dose: 1 tab Carvedilol (Coreg) 6.25 mg PO BID [facility] Last Admin: 06/06/17 09:25 Dose: 6.25 mg Furosemide (Lasix) 20 mg IVP DAILY [facility] Last Admin: 06/06/17 09:26 Dose: 20 mg Multivitamins/Minerals (Therapeutic-M Tab) 1 tab PO DAILY [facility] Last Admin: 06/06/17 09:25 Dose: 1 tab Hmxne-5-Jdeh Ethyl Esters (Lovaza) 1 gm PO DAILY [facility] Last Admin: 06/06/17 09:25 Dose: 1 gm Spironolactone (Aldactone) 25 mg PO DAILY [facility] Last Admin: 06/06/17 09:24 Dose: 25 mg Physical Exam - Constitutional Appears: No Acute Distress - Head Exam Head Exam: ATRAUMATIC, NORMAL INSPECTION, NORMOCEPHALIC - Eye Exam Eye Exam: EOMI, Normal appearance, PERRL - ENT Exam ENT Exam: Mucous Membranes Moist, Normal Oropharynx - Neck Exam Neck exam: Positive for: Normal Inspection. Negative for: Tenderness, Thyromegaly - Respiratory Exam Respiratory Exam: Clear to Auscultation Bilateral, NORMAL BREATHING PATTERN. absent: Rhonchi, Wheezes - Cardiovascular Exam Cardiovascular Exam: REGULAR RHYTHM, +S1, +S2. absent: Gallop, JVD, +S4, Systolic Murmur - GI/Abdominal Exam GI & Abdominal Exam: Normal Bowel Sounds, Soft. absent: Tenderness - Extremities Exam Extremities exam: Positive for: normal inspection. Negative for: calf tenderness, pedal edema - Neurological Exam Neurological exam: Alert, Normal Gait, Oriented x3 - Psychiatric Exam Psychiatric exam: Normal Affect, Normal Mood - Skin Skin Exam: Normal Color, Warm Results - Vital Signs Recent Vital Signs: Last Vital Signs Temp 98.3 F 06/06/17 08:31 Pulse 65 06/06/17 08:31 Resp 20 06/06/17 08:31 BP 128/81 06/06/17 09:26 Pulse Ox 100 06/06/17 08:31 - Labs Result Diagrams: 06/05/17 14:16 06/05/17 14:16 Labs: Laboratory Results - last 24 hr 06/05/17 06/06/17 20:28 04:30 Total Creatine Kinase 57 54 CK-MB (Mass) 1.13 0.83 Troponin I, Quant < 0.0120 < 0.0120 NT-Pro-B Natriuret Pep 1980 H - EKG Data EKG Interpreted by: Myself EKG shows normal: Sinus rhythm (No acute ischemic changes) - Imaging and Cardiology Chest x-ray Status: Image reviewed by me (No congestion, L. upper chest AICD with single lead into the RV) Assessment & Plan - Assessment and Plan (Free Text) Assessment: 1. Acute on chronic non-ischemic cardiomyopathy 2. known normal coronary arteries by cath 03/2016 3. Hx of AICD L. chest wall 3. HTN 4. hx of ETOH abuse in past, Hx of cocaine positve tox in past 5. OR ruled out 6. Exam: No volume overload, edema, chest congestion (CXRAY: WNL) 7. No arrythmia on TELE 8. Labs: normal K+, creat and H/H; NTPBNP: less then prior but c/w with chronic CHF Cardiac Meds reviewed: * Aspirin (Aspirin Chewable) 81 mg PO DAILY [facility] * Carvedilol (Coreg) 6.25 mg PO BID [facility] * Furosemide (Lasix) 20 mg IVP DAILY [facility] * Spironolactone (Aldactone) 25 mg PO DAILY [facility] > BP is 110-120 range: Suggest adding an JORGE-I or ARB low dose and titrate CHF meds as outpatient. > F/U with Dr. Evans next wednesday at 2:00 pm for ongoing eval of AICD and NICM.
[2017-06-06] MEDS: Alum-Mag Hydrox-Simethicone Susp (30 mL) PO PRN (14:45)
[2017-06-07] MEDS: Alum-Mag Hydrox-Simethicone Susp (30 mL) PO PRN (00:19)
[2017-06-07 01:22] VITALS: O2SAT 100
[2017-06-07 06:48] LABS: BLOOD UREA NITROGEN 24 mg/dL (7-17); CALCIUM 8.7 mg/dl (8.6-10.4); CARBON DIOXIDE 33 mmol/L (22-30); CHLORIDE 96 mmol/L (98-107); GFR AFRICAN-AMERICAN > 60; GLUCOSE,RANDOM 89 mg/dL (65-105); POTASSIUM 4.4 mmol/L (3.6-5.2); SODIUM 138 mmol/L (132-148)
[2017-06-07] MEDS: Multivitamin With Minerals Tab PO SCH (10:30)
[2017-06-07] MEDS: Calcium-Vit D 250 mg-125 Units Tab UD PO SCH (10:31)
[2017-06-07] MEDS: Omega-3-Acid Ethyl Esters 1 GM Cap PO SCH (10:31)
--- NOTE | 2017-06-07 15:40 | PCM.HF ---
Heart Failure Core Measure - Heart Failure Ejection Fraction: Less Than 40 % (EF 35-40%) JORGE Inhibitor Prescribed: No Contraindication/Reason for not providing: on ARB Beta-Ghanshyam Prescribed: Carvedilol Angiotensin II Receptor Ghanshyam Prescribed: Yes AnticoagulationTherapy for Atrial Fibrillation/Atrialflutter: No Contraindication/Reason for not providing: no afib Aldosterone Antagonist Prescribed: Yes Hydralazine Nitrate Prescribed: No Contraindication/Reason for not providing: low BP Implantable Cardioverter Defibrillator Therapy: Yes Contraindication/Reason for not providing: AICD Cardiac Resynchronization Therapy Prescribed: No Contraindication/Reason for not providing: not indicated - Follow up Will be discharged to: Home Follow Up Date (must be within 7 days from discharge): 06/10/17 Follow Up Time: 09:00
--- NOTE | 2017-06-07 15:46 | CP.PCM.PN ---
Subjective - Date & Time of Evaluation Date of Evaluation: 06/07/17 Time of Evaluation: 15:47 - Subjective Subjective: alert, awake, ambulatory, NAD. Objective - Vital Signs/Intake and Output Vital Signs (last 24 hours): Temp Pulse Resp BP Pulse Ox 97.8 F 72 18 121/80 100 06/07/17 07:35 06/07/17 07:35 06/07/17 07:35 06/07/17 10:33 06/07/17 07:35 Intake and Output: 06/07/17 06/07/17 06:59 18:59 Intake Total 800 Balance 800 - Medications Medications: Current Medications Al Hydrox/Mg Hydrox/Simethicone (Maalox Plus 30 Ml) 30 ml PO DAILY PRN PRN Reason: Indigestion / Heartburn Last Admin: 06/07/17 00:19 Dose: 30 ml Aspirin (Aspirin Chewable) 81 mg PO DAILY [facility] Last Admin: 06/07/17 10:30 Dose: 81 mg Calcium/Vitamin D (Oscal-D 250 Mg-125 Units Tab) 1 tab PO DAILY [facility] Last Admin: 06/07/17 10:31 Dose: 1 tab Carvedilol (Coreg) 6.25 mg PO BID [facility] Last Admin: 06/07/17 10:31 Dose: 6.25 mg Furosemide (Lasix) 20 mg IVP DAILY [facility] Last Admin: 06/07/17 10:33 Dose: 20 mg Multivitamins/Minerals (Therapeutic-M Tab) 1 tab PO DAILY [facility] Last Admin: 06/07/17 10:30 Dose: 1 tab Mhxez-0-Ritr Ethyl Esters (Lovaza) 1 gm PO DAILY [facility] Last Admin: 06/07/17 10:31 Dose: 1 gm Spironolactone (Aldactone) 25 mg PO DAILY [facility] Last Admin: 06/07/17 10:32 Dose: 25 mg - Labs Labs: 06/07/17 06:17 Assessment and Plan - Assessment and Plan (Free Text) Assessment: Patient is seen and examined. Alert, orientedx3, no sob or chest pain. Seen by the body team member, cleared for discharge. D/W DR Amador, plan to discharge home today. Advised tof/u in the office in 1 week. Also need to f/u with cardiologyst in 1 week, advised to bring all meds to review. CHF core measures done.
[2017-06-07 16:10] VITALS: BP 108/63; PULSE 51; RESP 20; TEMP 98.3
--- NOTE | 2017-06-07 17:44 | CP.PCM.DIS ---
Provider - Provider Date of Admission: 06/05/17 15:21 Attending physician: Bonnie Amador MD Primary care physician: pt came in for chest pain sob had ekg v hypertophy and ischemia por bnp hi rx with lasix alactone and coreg improved will d/c home on same med f/u in [place]ice [place] and with cardiology assac chf cheast pain htn decreased Time Spent in preparation of Discharge (in minutes): 30 Hospital Course - Lab Results Lab Results: Most Recent Lab Values WBC 4.1 K/uL (4.8-10.8) L 06/05/17 14:16 RBC 4.35 Mil/uL (3.80-5.20) 06/05/17 14:16 Hgb 14.3 g/dL (11.0-16.0) 06/05/17 14:16 Hct 43.0 % (34.0-47.0) 06/05/17 14:16 MCV 98.9 fL (81.0-99.0) 06/05/17 14:16 MCH 32.9 pg (27.0-31.0) H 06/05/17 14:16 MCHC 33.3 g/dL (33.0-37.0) 06/05/17 14:16 RDW 14.0 % (11.5-14.5) 06/05/17 14:16 Plt Count 126 K/uL (130-400) L D 06/05/17 14:16 MPV 9.5 fL (7.2-11.7) 06/05/17 14:16 Neut % (Auto) 85.0 % (50.0-75.0) H 06/05/17 14:16 Lymph % (Auto) 7.9 % (20.0-40.0) L 06/05/17 14:16 [place] % (Auto) 5.4 % (0.0-10.0) 06/05/17 14:16 Eos % (Auto) 1.4 % (0.0-4.0) 06/05/17 14:16 Baso % (Auto) 0.3 % (0.0-2.0) 06/05/17 14:16 Neut # 3.5 K/uL (1.8-7.0) 06/05/17 14:16 Lymph # 0.3 K/uL (1.0-4.3) L 06/05/17 14:16 [place] # 0.2 K/uL (0.0-0.8) 06/05/17 14:16 Eos # 0.1 K/uL (0.0-0.7) 06/05/17 14:16 Baso # 0.0 K/uL (0.0-0.2) 06/05/17 14:16 Neutrophils % (Manual) 86 % (50-75) H 06/05/17 14:16 Band Neutrophils % 1 % (0-2) 06/05/17 14:16 Lymphocytes % (Manual) 6 % (20-40) L 06/05/17 14:16 Monocytes % (Manual) 5 % (0-10) 06/05/17 14:16 Eosinophils % (Manual) 1 % (0-4) 06/05/17 14:16 Basophils % (Manual) 1 % (0-2) 06/05/17 14:16 Toxic Granulation Present 06/05/17 14:16 Platelet Estimate Slightly decreased (NORMAL) L 06/05/17 14:16 Large Platelets Present 06/05/17 14:16 Anisocytosis (manual) Slight 06/05/17 14:16 Sodium 138 mmol/L (132-148) 06/07/17 06:17 Potassium 4.4 mmol/L (3.6-5.2) 06/07/17 06:17 Chloride 96 mmol/L (98-107) L 06/07/17 06:17 Carbon Dioxide 33 mmol/L (22-30) H 06/07/17 06:17 Anion Gap 13 (10-20) 06/07/17 06:17 BUN 24 mg/dL (7-17) H 06/07/17 06:17 Creatinine 1.0 MG/DL (0.7-1.2) 06/07/17 06:17 Est GFR ( Amer) > 60 06/07/17 06:17 Est GFR (Non-Af Amer) 58 06/07/17 06:17 Random Glucose 89 mg/dL (65-105) 06/07/17 06:17 Hemoglobin A1c 5.8 % (4.2-6.5) 06/06/17 17:23 Calcium 8.7 mg/dl (8.6-10.4) 06/07/17 06:17 Total Bilirubin 0.9 mg/dL (0.2-1.3) 06/05/17 14:16 AST 37 U/L (14-36) H D 06/05/17 14:16 ALT 39 U/L (9-52) 06/05/17 14:16 Alkaline Phosphatase 63 U/L (38-126) 06/05/17 14:16 Total Creatine Kinase 54 U/L (30-135) 06/06/17 04:30 CK-MB (Mass) 0.83 ng/mL (0.0-3.38) 06/06/17 04:30 Troponin I < 0.0120 ng/mL (0.00-0.120) 06/06/17 14:10 Troponin I, Quant < 0.0120 ng/mL (0.00-0.120) 06/06/17 04:30 NT-Pro-B Natriuret Pep 1750 pg/mL (0-900) H 06/07/17 06:17 Total Protein 7.0 g/dL (6.3-8.3) 06/05/17 14:16 Albumin 3.7 g/dL (3.5-5.0) 06/05/17 14:16 Globulin 3.3 gm/dL (2.2-3.9) 06/05/17 14:16 Albumin/Globulin Ratio 1.1 (1.0-2.1) 06/05/17 14:16 Urine Color Yellow (YELLOW) 06/05/17 14:25 Urine Clarity Clear (Clear) 06/05/17 14:25 Urine pH 6.0 (5.0-8.0) 06/05/17 14:25 Ur Specific Magnet 1.009 (1.003-1.030) 06/05/17 14:25 Urine Protein Negative mg/dL (NEGATIVE) 06/05/17 14:25 Urine Glucose (UA) Normal mg/dL (Normal) 06/05/17 14:25 Urine Ketones Negative mg/dL (NEGATIVE) 06/05/17 14:25 Urine Blood Negative (NEGATIVE) 06/05/17 14:25 Urine Nitrate Negative (NEGATIVE) 06/05/17 14:25 Urine Bilirubin Negative (NEGATIVE) 06/05/17 14:25 Urine Urobilinogen Normal mg/dL (0.2-1.0) 06/05/17 14:25 Ur Leukocyte Esterase Neg Marcos/uL (Negative) 06/05/17 14:25 Urine RBC (Auto) 2 /hpf (0-3) 06/05/17 14:25 Hyaline Casts 3-5 /lpf (0-2) H 06/05/17 14:25 Discharge Exam - Head Exam Head Exam: ATRAUMATIC, NORMAL INSPECTION, NORMOCEPHALIC Discharge Plan - Discharge Medications Prescriptions: Furosemide [Lasix] 20 mg PO DAILY #30 tab - Follow Up Plan Condition: STABLE Disposition: HOME/ ROUTINE Instructions: Furosemide (By mouth), Heart Failure (DC), Chest Pain (DC), Heart Healthy Diet (DC) Additional Instructions: Follow up with stakes player as scheduled. Follow up with Primary Medical Doctor in 1 week Referrals: Ilia Tuttle MD [Staff Provider] - Bonnie Amador MD [Staff Provider] -
--- NOTE | 2017-06-11 19:30 | CARD ---
APPROVED REPORT EKG Measurement Heart [id number] [place] [id number] <Conclusion> Sinus rhythm with frequent APCs Possible Left atrial enlargement Left axis deviation Left ventricular hypertrophy Nonspecific T wave abnormality Abnormal ECG
--- NOTE | 2017-06-11 19:31 | CARD ---
APPROVED REPORT EKG Measurement Heart [id number] [place] 148P66 [id number] <Conclusion> Normal sinus rhythm Biatrial enlargement Left axis deviation Left ventricular hypertrophy T wave abnormality, consider lateral ischemia Abnormal ECG
--- NOTE | 2017-06-11 19:32 | CARD ---
APPROVED REPORT EKG Measurement Heart [id number] 164P67 [id number] <Conclusion> Sinus rhythm with premature atrial complexes Right atrial enlargement Left axis deviation T wave abnormality, consider lateral ischemia Abnormal ECG
--- NOTE | 2017-06-11 19:33 | CARD ---
APPROVED REPORT EKG Measurement Heart [id number] OR 154P63 [id number] <Conclusion> Sinus rhythm with APCs Left axis deviation Moderate voltage criteria for LVH, may be normal variant Nonspecific T wave abnormality Abnormal ECG
--- NOTE | 2017-06-14 08:44 | CARD ---
APPROVED REPORT EKG Measurement Heart [id number] NE 150P71 [id number] <Conclusion> Sinus rhythm with premature atrial complexes Biatrial enlargement Left axis deviation Pulmonary disease pattern Incomplete right bundle branch block Left ventricular hypertrophy Nonspecific T wave abnormality Abnormal ECG
== END 2017-06-07 18:15 | disposition home or self-care (01) ==
LOC: C.ER 13:33 → C.9E 15:21 → C.6T 16:31
PROVIDERS: ADMIT Internal Medicine; ATTEND Internal Medicine
DX: R07.9 Chest pain, unspecified (principal); I42.9 Cardiomyopathy, unspecified; I11.0 Hypertensive heart disease with heart failure; I50.9 Heart failure, unspecified; J45.909 Unspecified asthma, uncomplicated; Z87.891 Personal history of nicotine dependence; Z95.0 Presence of cardiac pacemaker
CPT/HCPCS: 36415; 71020; 80048; 80053; 81001; 82553; 83036; 83880; 84484; 85025; 99285; G0378; J1940

== ENCOUNTER 2017-06-30 20:29 | Inpatient (IN) | payer BC ==
[2017-06-30 20:29] VITALS: BMI 29.1
[2017-06-30] MEDS ORDERED: Sodium Chloride 0.9% 1,000 ML IV ONE (20:46)
--- NOTE | 2017-06-30 20:51 | C.PDOC ---
History Of Present Illness 51 y/o female presents to the ER for heavy drinking and cocaine use tonight. Patient admits to alcohol and drug use. As per family patient c/o SOB, but patient denies SOB. Patient also denies suicidal ideation, homicidal ideation, fever, chills, or chest pain. Time Seen by Provider: 06/30/17 20:53 Chief Complaint (Nursing): Shortness Of Breath History Per: Patient History/Exam Limitations: no limitations Onset/Duration Of Symptoms: Hrs Current Symptoms Are (Timing): Still Present Severity: Mild Associated Symptoms: denies: Fever, Chills, Chest Pain Recent travel outside of the [place]: No Additional History Per: Patient Past Medical History Reviewed: Historical Data, Nursing Documentation, Vital Signs Vital Signs: Last Vital Signs Temp 99.1 F 07/01/17 01:54 Pulse 77 07/01/17 01:54 Resp 18 07/01/17 01:54 BP 142/89 07/01/17 01:54 Pulse Ox 99 07/01/17 01:54 - Medical History PMH: Asthma, Back Problems, CHF, HTN Denies: Chronic Kidney Disease Surgical History: Pacemaker - [facility] Procedures FLUOROSCOPY OF LEFT HEART USING LOW OSMOLAR CONTRAST (03/09/16) LOCAL EXCIS BREAST LES (02/16/03) MEASURE OF CARDIAC SAMPL & PRESSURE, L HEART, PERC APPROACH (03/09/16) Family History: States: Unknown Family Hx - Social History Hx Tobacco Use: Yes Hx Alcohol Use: No Hx Substance Use: Yes - Immunization History Hx Tetanus Toxoid Vaccination: No Hx Influenza Vaccination: No Hx Pneumococcal Vaccination: No Review Of Systems Except As Marked, All Systems Reviewed And Found Negative. Constitutional: Positive for: Other (Alcohol intoxication). Negative for: Fever , Chills Cardiovascular: Negative for: Chest Pain Respiratory: Negative for: Shortness of Breath Psych: Negative for: Suicidal ideation, Other (HOmicidal ideation) Physical Exam - Physical Exam Appears: Non-toxic, No Acute Distress, Other (Alcohol intoxicated, (+) AOB) Skin: Warm, Dry Head: Atraumatic, Normacephalic Cardiovascular: Rhythm Regular Respiratory: Normal Breath Sounds, No Rales, No Rhonchi, No Wheezing Gastrointestinal/Abdominal: Soft, No Tenderness Neurological/Psych: Other (No focal deficit. Somnolent, but easily arousable.) ED Course And Treatment - Laboratory Results Result Diagrams: 06/30/17 20:46 06/30/17 21:00 ECG: Interpreted By Me, Viewed By Me ECG Rhythm: Sinus Rhythm ECG Interpretation: No Acute Changes, Abnormal Interpretation Of ECG: NSR, LAD, NO ACUTE CHANGE. ABNORMAL TRACINGS Rate From EC O2 Sat by Pulse Oximetry: 97 (RA) Pulse Ox Interpretation: Normal Medical Decision Making Medical Decision Making: Impression: 1 y/o female presents to the ER for heavy drinking and cocaine use tonight. Plans: * ED Obs ED OBSERVATION Date of observation admission: 06/30/17 Time of observation admission: 20:59 - Observation admission statement Patient is being placed in observation because:: Alcohol intoxication - Goals of Observation Goals of observation are:: Sobriety Disposition Discussed With : Ashley Briones Doctor Will See Patient In The: Hospital Counseled Patient/Family Regarding: Diagnosis - Disposition Disposition: HOSPITALIZED Disposition Time: 02:55 Condition: STABLE - POA Present On Arrival: None - Clinical Impression Clinical Impression: Depressive episode, Alcohol abuse - Scribe Statement The provider has reviewed the documentation as recorded by the Scribe Fabien gil All medical record entries made by the Suzanibyaritza were at my direction and personally dictated by me. I have reviewed the chart and agree that the record accurately reflects my personal performance of the history, physical exam, medical decision making, and the department course for this patient. I have also personally directed, reviewed, and agree with the discharge instructions and disposition.
[2017-06-30 21:01] LABS: BASO % 0.6 % (0.0-2.0); EOS % 0.5 % (0.0-4.0); LYMPH # 1.6 K/uL (1.0-4.3); LYMPH % 20.5 % (20.0-40.0); MEAN CELL VOLUME 98.2 fL (81.0-99.0); MEAN CORPUSCULAR HEMOGLOBIN 33.4 pg (27.0-31.0); MEAN PLATELET VOLUME 9.3 fL (7.2-11.7); MONO # 0.5 K/uL (0.0-0.8); MONO % 6.1 % (0.0-10.0); NRBC % 0.1 % (0.0-2.0); RED CELL DISTRIBUTION WIDTH 14.4 % (11.5-14.5); WHITE BLOOD COUNT 7.6 K/uL (4.8-10.8)
[2017-06-30 21:09] LABS: CHLORIDE 105 mmol/L (98-107); POTASSIUM 4.2 mmol/L (3.6-5.2); SODIUM 146 mmol/L (132-148)
[2017-06-30 21:11] LABS: BILIRUBIN,TOTAL 0.7 mg/dL (0.2-1.3); GFR AFRICAN-AMERICAN > 60
[2017-06-30 21:12] LABS: ALB/GLOB RATIO 1.1 (1.0-2.1); ALKALINE PHOSPHATASE 83 U/L (38-126); ALT/SGPT 54 U/L (9-52); AST/SGOT 52 U/L (14-36); BLOOD UREA NITROGEN 15 mg/dL (7-17); CALCIUM 8.8 mg/dl (8.6-10.4); CARBON DIOXIDE 22 mmol/L (22-30); GLUCOSE,RANDOM 75 mg/dL (65-105); TOTAL PROTEIN 7.4 g/dL (6.3-8.3)
[2017-06-30 21:13] LABS: ALCOHOL SERUM 277 mg/dl (0-10)
[2017-06-30] MEDS ORDERED: Sodium Chloride 0.9% 1,000 ML ONE (21:30)
[2017-06-30 21:37] LABS: RBC URINE 12 /hpf (0-3); URINE BACTERIA OCC (<OCC); URINE BILIRUBIN NEGATIVE (NEGATIVE); URINE BLOOD 1+ (NEGATIVE); URINE COLOR Yellow (YELLOW); URINE GLUCOSE (UA) NORMAL (Normal); URINE KETONE NEGATIVE (NEGATIVE); URINE LEUKOCYTE ESTERASE TRACE Leu/uL (Negative); URINE PROTEIN 3+ mg/dL (NEGATIVE); URINE UROBILINOGEN NORMAL mg/dL (0.2-1.0); WBC URINE 10 /hpf (0-5)
--- NOTE | 2017-07-01 04:05 | PCM.BM ---
<Davon Raza - Last Filed: 07/01/17 04:03> Treatment Plan Problems - Problems identified on initial assessmt Depression Date Initiated: 07/01/17 Time Initiated: 04:03 Assessment reference: NA Status: Active Substance Abuse Date Initiated: 07/01/17 Time Initiated: 04:04 Assessment reference: NA Status: Active Treatment assets and liabiliti Patient Assests: cooperative, self-reliant, ADL independent, cognitively intact Patient Liabilities: financial problems, poor support system, relationship conflicts, dietary restrictions, substance abuse, medical problems - Milieu Protocol Maintain good personal hygiene: daily Encourage regular showers, daily Remind patient to perform daily oral care, daily Assist patient to perform ADL's Maintain personal safety: every shift Educate patient to report safety concerns to staff, every shift Monitor environment for contraband/sharps Medication safety: Monitor for expected outcome, potential side effects: every shift, Assess barriers to learning: every shift, Assess readiness for medication education: every shift <Yari Evans - Last Filed: 07/01/17 13:20> Family Contact Family involvement: Family/SO is involved Discharge/Continuing Care - Education Needs Education Needs: Patient Medication, Patient Coping Skills, Patient Community resources - Discharge Discharge Criteria: Tolerates medication w/o severe side effects, Free of Suicidal thoughts, Reduction of target symptoms
--- NOTE | 2017-07-01 10:02 | RAD ---
HISTORY: DOLL WIGS HACKLER SOB COMPARISON: 06/05/2017 FINDINGS: LUNGS: Interval increased central pulmonary venous congestion suggested. . No consolidation PLEURA: No significant pleural effusion identified, no pneumothorax apparent. CARDIOVASCULAR: Similar moderate cardiomegaly and AICD pacemaker device OSSEOUS STRUCTURES: Thoracic spondylosis -unchanged VISUALIZED UPPER ABDOMEN: Normal. OTHER FINDINGS: None. IMPRESSION: Interval increased central pulmonary venous congestion. No pleural effusions. No consolidation Moderate cardiomegaly with AICD pacemaker device
[2017-07-01 10:14] LABS: BASO # 0.1 K/uL (0.0-0.2); BASO % 1.3 % (0.0-2.0); EOS # 0.1 K/uL (0.0-0.7); EOS % 2.4 % (0.0-4.0); LYMPH # 1.3 K/uL (1.0-4.3); LYMPH % 21.3 % (20.0-40.0); MEAN CORPUSCULAR HEMOGLOBIN 33.2 pg (27.0-31.0); MEAN CORPUSCULAR HGB CONC 33.8 g/dL (33.0-37.0); MEAN PLATELET VOLUME 10.1 fL (7.2-11.7); MONO # 0.8 K/uL (0.0-0.8); MONO % 12.1 % (0.0-10.0); RED CELL DISTRIBUTION WIDTH 14.2 % (11.5-14.5); WHITE BLOOD COUNT 6.3 K/uL (4.8-10.8)
[2017-07-01 10:30] LABS: CHLORIDE 103 mmol/L (98-107); SODIUM 142 mmol/L (132-148)
[2017-07-01 10:31] LABS: POTASSIUM 4.4 mmol/L (3.6-5.2)
[2017-07-01 10:32] LABS: BILIRUBIN,TOTAL 1.1 mg/dL (0.2-1.3); GFR AFRICAN-AMERICAN > 60
[2017-07-01 10:33] LABS: ALB/GLOB RATIO 1.1 (1.0-2.1); ALKALINE PHOSPHATASE 67 U/L (38-126); ALT/SGPT 48 U/L (9-52); AST/SGOT 54 U/L (14-36); BLOOD UREA NITROGEN 15 mg/dL (7-17); CALCIUM 9.1 mg/dl (8.6-10.4); CARBON DIOXIDE 25 mmol/L (22-30); GLUCOSE,RANDOM 88 mg/dL (65-105); MAGNESIUM 1.8 mg/dL (1.6-2.3); PHOSPHOROUS 3.7 mg/dL (2.5-4.5)
[2017-07-01 11:03] LABS: THYROID STIMULATING HORMONE 3.19 mIU/L (0.46-4.68)
--- NOTE | 2017-07-01 11:33 | PCM.RRTMUL ---
LEGAL JOB TITLES Nurses Assessment - Vital Signs Blood Pressure:: 162/111 Pulse Rate:: 102 Respiratory Rate:: 20 I.Reason for LEGAL JOB TITLES - A) Acute Change in Patient: (Select all that apply): Staff member or family is worried about patient, Chest Pain (with lightheadedness, palpitations and sob) - A) Initial Vital Signs: Temperature: 98 F Pulse Rate: 84 Respiratory Rate: 19 Oxygen Saturation: 96 - B) Neurological Status (Select all that apply): Alert, Responsive, Oriented, Verbal, Follows Commands, Lethargic, Weakness - C) Respiratory Oxygen Delivery Method: Nasal Cannula @L/min (2) - Constitutional Appears: Non-toxic, In Acute Distress - Head Head Exam: ATRAUMATIC, NORMOCEPHALIC - Eyes Eye Exam: EOMI - Respiratory Exam Respiratory Exam: Clear to Ausculation Bilateral. absent: Accessory Muscle Use , Rales, Wheezes, Respiratory Distress, NORMAL BREATHING PATTERN (Patient taking short, quick breathes) - Cardiovascular Exam Cardiovascular Exam: Irregular Rhythm (multiple PVCs on ekg), +S1, +S2 - Neurological Exam Neurological Exam: Alert, Awake - Extremities Exam Extremities Exam: absent: Calf Tenderness, Joint Swelling, Pedal Edema Plan - A. End of LEGAL JOB TITLES Vital Signs: Blood Pressure: 161/111 Pulse Rate: 92 Respiratory Rate: 21 Temperature: 98.3 F - B. Assessment of Findings&Treatment Plan LEGAL JOB TITLES was called on [facility]. She was admitted to psych last night for depression, cocaine and excessive alcohol intake. Rapid was called because the patient was complaining of chest pain, palpitations, lightheadedness and shortness of breathe. Upon arrival, patient was sitting hunched over in a chair in the hallway while wearing oxygen. Patient was awake and able to answer questions. She stated that she was experiencing chest pain that started in the left side of her chest and radiated towards the right shoulder and into her back. Patient was taken into her room where a chest x ray and ekg were performed. CXR showed no acute changes. EKG showed new PVCs. Patient has a cardiac history of systolic CHF and implanted AICD. Orders: CXR, EKG, CBC, CMP, BNP (3250), mag (1.8), phos (3.7), TSH (3.19) and ROMIs x 3 First TOMMY @940 was negative at 0.0260 (repeat ROMIs/EKGs are ordered for 1540 and 2140) Hydralazine 10mg IVP was given for an increasing an BP 161/111. The medication was gvien once the patient was transferred to the 6th floor because she did not have IV access while on the Psych floor. Patient was transferred to telemetry in room 659-A for further observation. Dr. Bonnie Amador is the patient's PMD. She was called, informed of the incident and has accepted the patient on her service. Dr. Barnes (cardio) has seen the patient in the past. He was called, informed of the incident and accepted a consult to see the patient.
--- NOTE | 2017-07-01 11:40 | PCM.PSYCH ---
Initial Psychiatric Evaluation - Initial Psychiatric Evaluation Type of Admission: Voluntary Legal Status: Capacity Chief Complaint (in patient's own words): "I was feeling depressing and wanted to hurt myself" Patient's Reaction to Hospitalization: cooperative History of Present Illness and Precipitating Events: Patient is a 51 year old female with pmh of depression, asthma, CHF, AICD ( placed in 2015) whose son called EMS when she was intoxicated and talking about hurting herself. Patient says this was the first time she thought about hurting herself. She has had no suicide attempts in the past. Patient says she has been depressed in the past and was hospitalized once for depression about 10 years ago. When her father 8 years ago she said she felt very depressed. Patient says she drink a few glasses to a bottle of wine most days, but not ever day. She has been drinking alcohol since she was 14 but rarely drank from the ages of [age]. She started drinking heavily in her early 50s but is unsure of what triggered the drinking. She also admits to some cocaine use. She said she does it occasionally and started doing it about 1 year ago. She used to live with her but is now living with her son because her is in rehab for drugs. She said her old living situation was not good for her because her used drugs and his sister who lived downstairs also used drugs. She is very anxious about his drug use and about him returning from rehab. Today patient is very tired. She says she feels "disgusted" that she let her depression go so far as to want to hurt herself. She is not having any thoughts of hurting herself, SI, or HI now. She has never had any visual or auditory hallucinations. PMH: asthma, CHF, AICD (placed in 2016) Social: alcohol: 3 glasses to 1 bottle, most days, cocaine occasionally, denies other drugs living with son because is in rehab Current Medications: Active Medications Generic Name Dose Route Start Last Admin Trade Name Freq PRN Reason Stop Dose Admin Aspirin 81 mg 07/01/17 11:15 Aspirin Chewable PO DAILY [facility] Calcium/Vitamin D 1 tab 07/01/17 11:15 Oscal-D 250 Mg-125 Units Tab PO DAILY [facility] Carvedilol 6.25 mg 07/01/17 11:15 Coreg PO BID SANDI Chlordiazepoxide 25 mg 07/01/17 12:00 Librium PO 07/06/17 11:59 Q6 SANDI Taper Chlordiazepoxide 25 mg 07/01/17 11:00 Librium PO Q4H PRN Alcohol Withdrawal Clonidine HCl 0.1 mg 07/01/17 11:00 Catapres PO Q4H PRN Symptoms of alcohol withdrawl Folic Acid 1 mg 07/01/17 11:00 Folic Acid PO DAILY [facility] Furosemide 20 mg 07/01/17 11:15 Lasix PO DAILY [facility] Hydroxyzine HCl 25 mg 07/01/17 03:47 07/01/17 04:11 Atarax PO 25 mg Q6 PRN Administration Anxiety Ibuprofen 600 mg 07/01/17 03:45 07/01/17 05:02 Motrin Tab PO 600 mg Q6 PRN Administration Pain, moderate (4-7) Multivitamins 1 tab 07/01/17 11:00 Hexavitamin PO DAILY [facility] Multivitamins/Minerals 1 tab 07/01/17 12:00 Therapeutic-M Tab PO DAILY [facility] Spironolactone 25 mg 07/01/17 11:15 Aldactone PO DAILY [facility] Thiamine HCl 100 mg 07/01/17 11:00 Vitamin B1 Tab PO DAILY [facility] Trazodone HCl 50 mg 07/01/17 11:00 Desyrel PO HS PRN Insomnia Past Psychiatric History - Past Psychiatric History Previous Treatment History: None Pertinent Medical Hx (Current Medical&Sleep Prob, Allergies): Allergies Allergy/AdvReac Type Severity Reaction Status Date / Time No Known Allergies Allergy Verified 06/30/17 20:38 [place]-3 Fatty Acids/Fish Oil [[place] 3 Fish Oil Softgel] 1 tab PO DAILY 03/09/16 Multivit,Iron,Min 5/Folic Acid [Strovite Forte Caplet] 1 tab PO DAILY #30 tablet 01/12/17 Aspirin [Aspirin Chewable] 81 mg PO DAILY #30 04/03/17 Calcium Carbonate/Vitamin D [Oscal-D 250 mg-125 Units Tab] 1 tab PO DAILY tab 04/03/17 Carvedilol [Coreg] 6.25 mg PO BID #60 tab 04/03/17 Spironolactone [Aldactone] 25 mg PO DAILY #30 tab 04/03/17 Furosemide [Lasix] 20 mg PO DAILY #30 tab 06/07/17 Review of Systems - Psychiatric Psychiatric: Anxiety, Depression, Suicidal Ideation. absent: Auditory Hallucinations, Homicidal Ideation, Hopelessness, Irritability, Paranoia, Visual Hallucinations Mental Status Examination - Personal Presentation Personal Presentation: Looks stated age - Affect Affect: Broad - Motor Activity Motor Activity: Calm - Reliability in Providing Information Reliability in Providing Information: Good - Speech Speech: Organized - Mood Mood: Depressed, Anxious - Formal Thought Process Formal Thought Process: No Impairment - Obsessions/Compulsions Obsessions: No Compulsions: No - Cognitive Functions Orientation: Person, Place, Situation, Time Sensorium: Alert Attention/Concentration: Attentive Abstract Thinking: [place] Estimate of Intelligence: Average Judgement: Intact, as evidence by: Insight regarding need for hospitalization Memory: Recent intact, as evidence by: Ability to recall events of the day - Risk Risk: Suicidal, Withdrawal - Strength & Assets Inventory Strength & Assets Inventory: Family support DSM 5 DX - DSM 5 DSM 5 Diagnosis: Major Depressive Disorder Alcohol abuse disorder Cocaine abuse disorder Alcohol withdrawal - Recommended/Plan of Treatment Treatment Recommendations and Plan of Treatment: Major Depressive Disorder Zoloft 50 mg Atarax 25 mg PO PRN Trazodone 50 mg PO HS Alcohol withdrawal Librium taper 32min Prognosis: good with medications - Smoking Cessation Smoking Cessation Initiated: No
[2017-07-01] MEDS: Multiple Vitamins Tab PO SCH (11:46)
[2017-07-01] MEDS: Calcium-Vit D 250 mg-125 Units Tab UD PO SCH (12:10)
[2017-07-01] MEDS: Multivitamin With Minerals Tab PO SCH (15:38)
--- NOTE | 2017-07-01 15:53 | PCM.RRTMUL ---
MANAGER PROGRAM Nurses Assessment - Situation Location:: [facility] MANAGER PROGRAM Reason for Call: Chest Pain - Diagnostic Test Ordered EKG:: Yes - Vital Signs Blood Pressure:: 200/99 Pulse Rate:: 82 Respiratory Rate:: 20 Temperature:: 98.8 F - A) Initial Vital Signs: Temperature: 98.8 F Pulse Rate: 82 Respiratory Rate: 20 Oxygen Saturation: 100 - B) Neurological Status (Select all that apply): Alert - C) Respiratory Oxygen Delivery Method: Nasal Cannula @L/min (2) - Constitutional Appears: In Acute Distress (hands grabbing the right side of her chest. ) - Head Head Exam: ATRAUMATIC, NORMOCEPHALIC - Respiratory Exam Respiratory Exam: Clear to Ausculation Bilateral, Respiratory Distress (Patient tachypneic ), NORMAL BREATHING PATTERN. absent: Accessory Muscle Use, Wheezes - Cardiovascular Exam Cardiovascular Exam: REGULAR RHYTHM, +S1, +S2 - Neurological Exam Neurological Exam: Alert, Awake - Extremities Exam Extremities Exam: absent: Joint Swelling, Pedal Edema Plan - A. End of MANAGER PROGRAM Vital Signs: Blood Pressure: 143/102 Pulse Rate: 83 Respiratory Rate: 20 Temperature: 98.8 F O2 Sat by Pulse Oximetry: 100 - B. Assessment of Findings&Treatment Plan The patient is complaining of chest pain that radiates from the left side of her chest to the right side as well to her back. These are the same symptoms the patient was experiencing earlier this morning when a MANAGER PROGRAM was call approximately 6 hours earlier. Her first set of troponins were negative. It has been 5 hours and 50 minutes since the first set of tropoins were done, repeat troponins drawn now. In addition to troponins being drawn, a D-dimer will be sent as well. A repeat EKG was done at the bedside which showed no changes from previous EKGs except there are currently no PVCs as compared to this morning. Patient's BP was elevated at 200/99 at the start of the MANAGER PROGRAM. She was given Ativan 1mg IV. Labs were sent and will be followed up by resident. BP came down to 143/102 by the time were sent.
[2017-07-01] MEDS ORDERED: Iodixanol 320 MG/ML 100 ML BOTTLE IV ONE (17:19)
--- NOTE | 2017-07-01 19:27 | CT ---
EXAM: CT Angiography Chest With Intravenous Contrast EXAM DATE/TIME: Exam ordered 07/01/2017 5:02 PM CLINICAL HISTORY: 51 years old, female; Pain and signs and symptoms; Shortness of breath; Chest pain; Type not specified; Additional info: SOB with elevated d-dimer TECHNIQUE: Axial computed tomographic angiography images of the chest with intravenous contrast using pulmonary embolism protocol. All CT scans at this facility use one or more dose reduction techniques, viz.: automated exposure control; ma/kV adjustment per patient size (including targeted exams where dose is matched to indication; i.e. head); or iterative reconstruction technique. MIP reconstructed images were created and reviewed. Coronal and sagittal reformatted images were created and reviewed. CONTRAST: 100 mL of VISIPAQUE 320 administered intravenously. COMPARISON: CR - CHEST PORTABLE 03/09/2016 6:33:34 PM FINDINGS: Pulmonary arteries: Unremarkable. No pulmonary embolism. Aorta: No acute findings. No thoracic aortic aneurysm. Lungs: There is an area of discoid atelectasis/scar in the lingula. A 3 mm ground glass nodule is noted in the anterior segment left upper lobe (series 4 image 45). A 3 mm groundglass nodule is noted in the posterior segment of the right upper lobe (series 4 image 44). Pleural space: Unremarkable. No significant effusion. No pneumothorax. Heart: The heart is moderate to severely enlarged. No significant pericardial effusion. No evidence of RV dysfunction. Bones/joints: Degenerative changes are noted of the thoracic spine. No acute fracture. No dislocation. Soft tissues: The pacemaker is implanted within the soft tissues of the left upper chest. Lymph nodes: Unremarkable. No enlarged lymph nodes. Stomach and bowel: Surgical clips in the region of the stomach suggest previous gastric bypass surgery. Tubes, lines and devices: there is a dual-chamber chamber pacemaker/AICD device via left subclavian approach. IMPRESSION: 1. No pulmonary embolism. 2. Bilateral ground glass pulmonary nodules. Recommend follow-up chest CT at 3-6 months to confirm persistence. If stable, chest CT at 2 and 4 years. 3. Moderate to severe cardiomegaly
--- NOTE | 2017-07-01 20:40 | CP.PCM.HP ---
History of Present Illness - History of Present Illness History of Present Illness: pt initialy admited to psych for stress depresion then transfred to telemetry for ht failiure palpitation today had chest pain sob Present on Admission - Present on Admission Any Indicators Present on Admission: No Review of Systems - Review of Systems Systems not reviewed;Unavailable: Acuity of Condition - Constitutional Constitutional: Fatigue - EENT Eyes: As Per HPI Ears: As Per HPI Nose/Mouth/Throat: As Per HPI - Breasts Breasts: As Per HPI - Cardiovascular Cardiovascular: Chest Pain at Rest, Dyspnea, Palpitations - Respiratory Respiratory: Dyspnea, Dyspnea on Exertion - Gastrointestinal Gastrointestinal: Dyspepsia - Genitourinary Genitourinary: As Per HPI - Reproductive: Female Reproductive:Female: As Per HPI - Menstruation Menstruation: As Per HPI - Musculoskeletal Musculoskeletal: As Per HPI - Integumentary Integumentary: As Per HPI - Neurological Neurological: As Per HPI - Psychiatric Psychiatric: Anxiety, Depression - Endocrine Endocrine: As Per HPI - Hematologic/Lymphatic Additional comments: aneamia Past Patient History - Infectious Disease Hx of Infectious Diseases: None - Past Medical History & Family History Past Medical History?: Yes - Past Social History Smoking Status: Light Smoker < 10 Cigarettes Daily - CARDIAC Hx Congestive Heart Failure: Yes Hx Hypertension: Yes Hx Hypotension: No Hx Pacemaker: Yes (AICD) - PULMONARY Hx Asthma: Yes - NEUROLOGICAL HX Cerebrovascular Accident: No Hx Seizures: No - HEENT Hx HEENT Problems: No - RENAL Hx Chronic Kidney Disease: No - ENDOCRINE/METABOLIC Hx Endocrine Disorders: No - HEMATOLOGICAL/ONCOLOGICAL Hx Cancer: No Hx Human Immunodeficiency Virus (HIV): No - INTEGUMENTARY Hx Dermatological Problems: No - MUSCULOSKELETAL/RHEUMATOLOGICAL Hx Falls: No - GASTROINTESTINAL Hx Gastrointestinal Disorders: Yes Hx Gastroesophageal Reflux: Yes - GENITOURINARY/GYNECOLOGICAL Hx Sexually Transmitted Disorders: No - PSYCHIATRIC Hx Substance Use: Yes (Smoked cocaine) - SURGICAL HISTORY Hx Surgeries: Yes Hx Gastric Bypass Surgery: Yes Hx Musculoskeletal Surgery: Yes (Right Carpal tunnel) Other/Comment: Left breast cyst excision - ANESTHESIA Hx Anesthesia: Yes Hx Anesthesia Reactions: No Hx Malignant Hyperthermia: No Meds Allergies/Adverse Reactions: Allergies Allergy/AdvReac Type Severity Reaction Status Date / Time No Known Allergies Allergy Verified 06/30/17 20:38 Physical Exam - Constitutional Appears: Non-toxic - Head Exam Head Exam: NORMAL INSPECTION - Eye Exam Eye Exam: Normal appearance Pupil Exam: NORMAL ACCOMODATION - ENT Exam ENT Exam: Mucous Membranes Moist - Neck Exam Neck exam: Positive for: Normal Inspection - Respiratory Exam Respiratory Exam: Decreased Breath Sounds, Clear to Auscultation Bilateral - Cardiovascular Exam Cardiovascular Exam: REGULAR RHYTHM - GI/Abdominal Exam GI & Abdominal Exam: Normal Bowel Sounds - Rectal Exam Rectal Exam: NORMAL INSPECTION - Exam Exam: NORMAL INSPECTION External exam: NORMAL EXTERNAL EXAM - Extremities Exam Extremities exam: Positive for: normal inspection - Back Exam Back exam: NORMAL INSPECTION - Neurological Exam Neurological exam: Oriented x3 - Psychiatric Exam Psychiatric exam: Anxious, Depressed - Skin Skin Exam: Normal Color Results - Vital Signs Recent Vital Signs: Last Vital Signs Temp 98.8 F 07/01/17 16:01 Pulse 83 07/01/17 16:01 Resp 20 07/01/17 16:01 BP 143/102 H 07/01/17 16:01 Pulse Ox 100 07/01/17 15:32 - Labs Result Diagrams: 07/01/17 10:05 07/01/17 10:05 Labs: Laboratory Results - last 24 hr 07/01/17 07/01/17 07/01/17 09:28 10:05 10:05 WBC 6.3 RBC 4.08 Hgb 13.5 Hct 40.0 MCV 98.0 MCH 33.2 H MCHC 33.8 RDW 14.2 Plt Count 142 MPV 10.1 Neut % (Auto) 62.9 Lymph % (Auto) 21.3 [place] % (Auto) 12.1 H Eos % (Auto) 2.4 Baso % (Auto) 1.3 Neut # 3.9 Lymph # 1.3 [place] # 0.8 Eos # 0.1 Baso # 0.1 D-Dimer, Quantitative Sodium 142 Potassium 4.4 Chloride 103 Carbon Dioxide 25 Anion Gap 18 BUN 15 Creatinine 0.6 L Est GFR ( Amer) > 60 Est GFR (Non-Af Amer) > 60 POC Glucose (mg/dL) 94 Random Glucose 88 Calcium 9.1 Phosphorus 3.7 Magnesium 1.8 Total Bilirubin 1.1 AST 54 H ALT 48 Alkaline Phosphatase 67 Total Creatine Kinase 157 H CK-MB (Mass) 1.74 Troponin I, Quant 0.0260 NT-Pro-B Natriuret Pep 3250 H Total Protein 7.0 Albumin 3.6 Globulin 3.4 Albumin/Globulin Ratio 1.1 TSH 3rd Generation 3.19 07/01/17 07/01/17 15:36 15:53 WBC RBC Hgb Hct MCV MCH MCHC RDW Plt Count MPV Neut % (Auto) Lymph % (Auto) [place] % (Auto) Eos % (Auto) Baso % (Auto) Neut # Lymph # [place] # Eos # Baso # D-Dimer, Quantitative 251 H Sodium Potassium Chloride Carbon Dioxide Anion Gap BUN Creatinine Est GFR ( Amer) Est GFR (Non-Af Amer) POC Glucose (mg/dL) Random Glucose Calcium Phosphorus Magnesium Total Bilirubin AST ALT Alkaline Phosphatase Total Creatine Kinase 138 H CK-MB (Mass) 1.35 Troponin I, Quant < 0.0120 NT-Pro-B Natriuret Pep Total Protein Albumin Globulin Albumin/Globulin Ratio TSH 3rd Generation Assessment & Plan - Assessment and Plan (Free Text) Assessment: nonischemic cardiomypathy chf htn depresion anesxiety Plan: as per orders - Date & Time Date: 07/01/17 Time: 20:45
--- NOTE | 2017-07-01 23:29 | CP.PCM.CON ---
History of Present Illness - History of Present Illness History of Present Illness: CC: Dyspnea, Respiratory insufficiency HPI: 51 F with hx of Non ischemic CMP, EF 20%, s/p AICD, HTN, Drug abuse transferred after rapid response what appears as acute on chronic systolic CHF Review of Systems - Constitutional Constitutional: absent: As Per HPI, Anorexia, Chills, Daytime Sleepiness, Excessive Sweating, Fatigue, Fever, Frequent Falls, Headache, Increased Appetite , Lethargy, Malaise, Night Sweats, Snoring, Sleep Apnea, Weight Gain, Weight Loss, Weakness, Other - EENT Eyes: absent: As Per HPI, Blind Spots, Blurred Vision, Change in Vision, Decreased Night Vision, Diplopia, Discharge, Dry Eye, Exophthalmos, Floaters, Irritation, Itchy Eyes, Loss of Peripheral Vision, Pain, Photophobia, Requires Corrective Lenses, Sees Flashes, Spots in Vision, Tunnel Vision, Other Visual Disturbances, Loss of Vision, Other Ears: absent: As Per HPI, Decreased Hearing, Ear Discharge, Ear Pain, Tinnitus, Abnormal Hearing, Disequilibrium, Dizziness, Other Nose/Mouth/Throat: absent: As Per HPI, Epistaxis, Nasal Congestion, Nasal Discharge, Nasal Obstruction, Nasal Trauma, Nose Pain, Post Nasal Drip, Sinus Pain, Sinus Pressure, Bleeding Gums, Change in Voice, Dental Pain, Dry Mouth, Dysphagia, Halitosis, Hoarsness, Lip Swelling, Mouth Lesions, Mouth Pain, Odynophagia, Sore Throat, Throat Swelling, Tongue Swelling, Facial Pain, Neck Pain, Neck Mass, Other - Cardiovascular Cardiovascular: Dyspnea - Respiratory Respiratory: Dyspnea - Gastrointestinal Gastrointestinal: absent: As Per HPI, Abdominal Pain, Belching, Bloating, Change in Bowel Habits, Change in Stool Character, Coffee Ground Emesis, Constipation, Cramping, Diarrhea, Dyspepsia, Dysphagia, Early Satiety, Excessive Flatus, Fecal Incontinence, Heartburn, Hematemesis, Hematochezia, Loose Stools, Melena, Nausea, Odynophagia, Temesmus, Vomiting, Other - Musculoskeletal Musculoskeletal: absent: As Per HPI, Abnormal Gait, Arthralgias, Atrophy, Back Pain, Deformity, Joint Swelling, Limited Range of Motion, Loss of Height, Muscle Cramps, Muscle Weakness, Myalgias, Neck Pain, Numbness, Radiating Pain into Limb, Stiffness, Tingling, Other - Neurological Neurological: absent: Behavioral Changes Past Patient History - Infectious Disease Hx of Infectious Diseases: None - Past Medical History & Family History Past Medical History?: Yes - Past Social History Smoking Status: Light Smoker < 10 Cigarettes Daily - CARDIAC Hx Congestive Heart Failure: Yes Hx Hypertension: Yes Hx Hypotension: No Hx Pacemaker: Yes (AICD) - PULMONARY Hx Asthma: Yes - NEUROLOGICAL HX Cerebrovascular Accident: No Hx Seizures: No - HEENT Hx HEENT Problems: No - RENAL Hx Chronic Kidney Disease: No - ENDOCRINE/METABOLIC Hx Endocrine Disorders: No - HEMATOLOGICAL/ONCOLOGICAL Hx Cancer: No Hx Human Immunodeficiency Virus (HIV): No - INTEGUMENTARY Hx Dermatological Problems: No - MUSCULOSKELETAL/RHEUMATOLOGICAL Hx Falls: No - GASTROINTESTINAL Hx Gastrointestinal Disorders: Yes Hx Gastroesophageal Reflux: Yes - GENITOURINARY/GYNECOLOGICAL Hx Sexually Transmitted Disorders: No - PSYCHIATRIC Hx Substance Use: Yes (Smoked cocaine) - SURGICAL HISTORY Hx Surgeries: Yes Hx Gastric Bypass Surgery: Yes Hx Musculoskeletal Surgery: Yes (Right Carpal tunnel) Other/Comment: Left breast cyst excision - ANESTHESIA Hx Anesthesia: Yes Hx Anesthesia Reactions: No Hx Malignant Hyperthermia: No Meds Allergies/Adverse Reactions: Allergies Allergy/AdvReac Type Severity Reaction Status Date / Time No Known Allergies Allergy Verified 06/30/17 20:38 - Medications Medications: Current Medications Aspirin (Aspirin Chewable) 81 mg PO DAILY [facility] Last Admin: 07/01/17 11:46 Dose: 81 mg Calcium/Vitamin D (Oscal-D 250 Mg-125 Units Tab) 1 tab PO DAILY [facility] Last Admin: 07/01/17 12:10 Dose: 1 tab Carvedilol (Coreg) 6.25 mg PO BID [facility] Last Admin: 07/01/17 18:08 Dose: 6.25 mg Chlordiazepoxide (Librium) 25 mg PO Q6 [facility] PRN Reason: Taper Stop: 07/06/17 11:59 Last Admin: 07/01/17 18:08 Dose: 25 mg Chlordiazepoxide (Librium) 25 mg PO Q4H PRN PRN Reason: Alcohol Withdrawal Clonidine HCl (Catapres) 0.1 mg PO Q4H PRN PRN Reason: Symptoms of alcohol withdrawl Enoxaparin Sodium (Lovenox) 40 mg SC DAILY [facility] Folic Acid (Folic Acid) 1 mg PO DAILY [facility] Last Admin: 07/01/17 11:46 Dose: 1 mg Furosemide (Lasix) 20 mg PO DAILY [facility] Last Admin: 07/01/17 11:46 Dose: 20 mg Hydroxyzine HCl (Atarax) 25 mg PO Q6 PRN PRN Reason: Anxiety Last Admin: 07/01/17 04:11 Dose: 25 mg Ibuprofen (Motrin Tab) 600 mg PO Q6 PRN PRN Reason: Pain, moderate (4-7) Last Admin: 07/01/17 05:02 Dose: 600 mg Multivitamins (Hexavitamin) 1 tab PO DAILY [facility] Last Admin: 07/01/17 11:46 Dose: 1 tab Multivitamins/Minerals (Therapeutic-M Tab) 1 tab PO DAILY [facility] Last Admin: 07/01/17 15:38 Dose: 1 tab Spironolactone (Aldactone) 25 mg PO DAILY [facility] Last Admin: 07/01/17 11:46 Dose: 25 mg Thiamine HCl (Vitamin B1 Tab) 100 mg PO DAILY [facility] Last Admin: 07/01/17 15:42 Dose: 100 mg Trazodone HCl (Desyrel) 50 mg PO HS PRN PRN Reason: Insomnia Physical Exam - Head Exam Head Exam: ATRAUMATIC - Eye Exam Eye Exam: EOMI, PERRL - ENT Exam ENT Exam: Mucous Membranes Moist - Respiratory Exam Respiratory Exam: NORMAL BREATHING PATTERN - Cardiovascular Exam Cardiovascular Exam: REGULAR RHYTHM, +S1, +S2. absent: JVD - GI/Abdominal Exam GI & Abdominal Exam: Normal Bowel Sounds, Soft - Neurological Exam Neurological exam: Alert, CN II-XII Intact - Skin Skin Exam: Warm Results - Vital Signs Recent Vital Signs: Last Vital Signs Temp 98.8 F 07/01/17 16:01 Pulse 83 07/01/17 16:01 Resp 20 07/01/17 16:01 BP 125/77 07/01/17 22:00 Pulse Ox 100 07/01/17 15:32 - Labs Result Diagrams: 07/01/17 10:05 07/02/17 07:00 Labs: Laboratory Results - last 24 hr 07/01/17 07/01/17 07/01/17 09:28 10:05 10:05 WBC 6.3 RBC 4.08 Hgb 13.5 Hct 40.0 MCV 98.0 MCH 33.2 H MCHC 33.8 RDW 14.2 Plt Count 142 MPV 10.1 Neut % (Auto) 62.9 Lymph % (Auto) 21.3 [place] % (Auto) 12.1 H Eos % (Auto) 2.4 Baso % (Auto) 1.3 Neut # 3.9 Lymph # 1.3 [place] # 0.8 Eos # 0.1 Baso # 0.1 D-Dimer, Quantitative Sodium 142 Potassium 4.4 Chloride 103 Carbon Dioxide 25 Anion Gap 18 BUN 15 Creatinine 0.6 L Est GFR ( Amer) > 60 Est GFR (Non-Af Amer) > 60 POC Glucose (mg/dL) 94 Random Glucose 88 Calcium 9.1 Phosphorus 3.7 Magnesium 1.8 Total Bilirubin 1.1 AST 54 H ALT 48 Alkaline Phosphatase 67 Total Creatine Kinase 157 H CK-MB (Mass) 1.74 Troponin I, Quant 0.0260 NT-Pro-B Natriuret Pep 3250 H Total Protein 7.0 Albumin 3.6 Globulin 3.4 Albumin/Globulin Ratio 1.1 TSH 3rd Generation 3.19 07/01/17 07/01/17 07/01/17 15:36 15:53 22:47 WBC RBC Hgb Hct MCV MCH MCHC RDW Plt Count MPV Neut % (Auto) Lymph % (Auto) [place] % (Auto) Eos % (Auto) Baso % (Auto) Neut # Lymph # [place] # Eos # Baso # D-Dimer, Quantitative 251 H Sodium Potassium Chloride Carbon Dioxide Anion Gap BUN Creatinine Est GFR ( Amer) Est GFR (Non-Af Amer) POC Glucose (mg/dL) Random Glucose Calcium Phosphorus Magnesium Total Bilirubin AST ALT Alkaline Phosphatase Total Creatine Kinase 138 H 108 CK-MB (Mass) 1.35 1.25 Troponin I, Quant < 0.0120 0.0140 NT-Pro-B Natriuret Pep Total Protein Albumin Globulin Albumin/Globulin Ratio TSH 3rd Generation Assessment & Plan - Assessment and Plan (Free Text) Assessment: 1. Acute on Chronic systolic CHF 2. HTN Continue IV lasix Case will be transferred to Dr. Evans/Marry
[2017-07-02 07:42] LABS: CHLORIDE 100 mmol/L (98-107); POTASSIUM 4.2 mmol/L (3.6-5.2); SODIUM 140 mmol/L (132-148)
[2017-07-02 07:44] LABS: GFR AFRICAN-AMERICAN > 60
[2017-07-02 07:45] LABS: BLOOD UREA NITROGEN 19 mg/dL (7-17); CALCIUM 8.8 mg/dl (8.6-10.4); CARBON DIOXIDE 31 mmol/L (22-30); GLUCOSE,RANDOM 98 mg/dL (65-105)
[2017-07-02] MEDS: Multivitamin With Minerals Tab PO SCH (09:12)
[2017-07-02] MEDS: Calcium-Vit D 250 mg-125 Units Tab UD PO SCH (09:13)
[2017-07-02] MEDS: Multiple Vitamins Tab PO SCH (09:13)
[2017-07-02] MEDS: Enoxaparin 40 mg Syringe SC SCH (10:59)
[2017-07-02 11:22] LABS: FREE T4 1.09 ng/dL (0.78-2.19)
[2017-07-02 11:35] LABS: THYROID STIMULATING HORMONE 3.08 mIU/L (0.46-4.68)
--- NOTE | 2017-07-02 11:46 | CP.PCM.PN ---
Subjective - Date & Time of Evaluation Date of Evaluation: 07/02/17 Time of Evaluation: 11:43 - Subjective Subjective: in bed loganearyaritza depresed still has chest pains and sob on and off r side Objective - Vital Signs/Intake and Output Vital Signs (last 24 hours): Temp Pulse Resp BP Pulse Ox 97.7 F 58 L 18 123/82 100 07/02/17 07:20 07/02/17 07:20 07/02/17 07:20 07/02/17 09:13 07/02/17 07:20 Intake and Output: 07/02/17 07/02/17 06:59 18:59 Intake Total 240 Balance 240 - Medications Medications: Current Medications Aspirin (Aspirin Chewable) 81 mg PO DAILY [facility] Last Admin: 07/02/17 09:12 Dose: 81 mg Calcium/Vitamin D (Oscal-D 250 Mg-125 Units Tab) 1 tab PO DAILY [facility] Last Admin: 07/02/17 09:13 Dose: 1 tab Carvedilol (Coreg) 6.25 mg PO BID [facility] Last Admin: 07/02/17 09:13 Dose: 6.25 mg Chlordiazepoxide (Librium) 25 mg PO Q6 [facility] PRN Reason: Taper Stop: 07/06/17 11:59 Last Admin: 07/02/17 06:00 Dose: 25 mg Chlordiazepoxide (Librium) 25 mg PO Q4H PRN PRN Reason: Alcohol Withdrawal Clonidine HCl (Catapres) 0.1 mg PO Q4H PRN PRN Reason: Symptoms of alcohol withdrawl Enoxaparin Sodium (Lovenox) 40 mg SC DAILY [facility] Last Admin: 07/02/17 10:59 Dose: 40 mg Folic Acid (Folic Acid) 1 mg PO DAILY [facility] Last Admin: 07/02/17 09:13 Dose: 1 mg Furosemide (Lasix) 20 mg PO DAILY [facility] Last Admin: 07/02/17 09:13 Dose: 20 mg Hydroxyzine HCl (Atarax) 25 mg PO Q6 PRN PRN Reason: Anxiety Last Admin: 07/01/17 04:11 Dose: 25 mg Ibuprofen (Motrin Tab) 600 mg PO Q6 PRN PRN Reason: Pain, moderate (4-7) Last Admin: 07/01/17 05:02 Dose: 600 mg Multivitamins (Hexavitamin) 1 tab PO DAILY [facility] Last Admin: 07/02/17 09:13 Dose: 1 tab Multivitamins/Minerals (Therapeutic-M Tab) 1 tab PO DAILY [facility] Last Admin: 07/02/17 09:12 Dose: 1 tab Spironolactone (Aldactone) 25 mg PO DAILY [facility] Last Admin: 07/02/17 09:13 Dose: 25 mg Thiamine HCl (Vitamin B1 Tab) 100 mg PO DAILY [facility] Last Admin: 07/02/17 09:13 Dose: 100 mg Trazodone HCl (Desyrel) 50 mg PO HS PRN PRN Reason: Insomnia - Labs Labs: 07/01/17 10:05 07/02/17 07:00 - Constitutional Appears: Non-toxic - Head Exam Head Exam: NORMAL INSPECTION - Eye Exam Eye Exam: Normal appearance Pupil Exam: NORMAL ACCOMODATION - ENT Exam ENT Exam: Mucous Membranes Moist - Respiratory Exam Respiratory Exam: Chest Wall Tenderness, Decreased Breath Sounds - Cardiovascular Exam Cardiovascular Exam: REGULAR RHYTHM - GI/Abdominal Exam GI & Abdominal Exam: Normal Bowel Sounds - Extremities Exam Extremities Exam: Normal Capillary Refill, Normal Inspection - Back Exam Back Exam: NORMAL INSPECTION - Neurological Exam Neurological Exam: Alert, Awake, Normal Gait, Oriented x3 - Psychiatric Exam Psychiatric exam: Depressed - Skin Skin Exam: Normal Color Assessment and Plan - Assessment and Plan (Free Text) Assessment: chfchest pain sob depression Plan: as per orders
--- NOTE | 2017-07-02 12:30 | CARD ---
APPROVED REPORT EKG Measurement Heart [id number] <Conclusion> Normal sinus rhythm Left axis deviation Moderate voltage criteria for LVH, may be normal variant Prolonged QT Abnormal ECG
--- NOTE | 2017-07-02 12:43 | CP.PCM.CON ---
Past Patient History - Infectious Disease Hx of Infectious Diseases: None - Past Medical History & Family History Past Medical History?: Yes - Past Social History Smoking Status: Light Smoker < 10 Cigarettes Daily - CARDIAC Hx Congestive Heart Failure: Yes Hx Hypertension: Yes Hx Hypotension: No Hx Pacemaker: Yes (AICD) - PULMONARY Hx Asthma: Yes - NEUROLOGICAL HX Cerebrovascular Accident: No Hx Seizures: No - HEENT Hx HEENT Problems: No - RENAL Hx Chronic Kidney Disease: No - ENDOCRINE/METABOLIC Hx Endocrine Disorders: No - HEMATOLOGICAL/ONCOLOGICAL Hx Cancer: No Hx Human Immunodeficiency Virus (HIV): No - INTEGUMENTARY Hx Dermatological Problems: No - MUSCULOSKELETAL/RHEUMATOLOGICAL Hx Falls: No - GASTROINTESTINAL Hx Gastrointestinal Disorders: Yes Hx Gastroesophageal Reflux: Yes - GENITOURINARY/GYNECOLOGICAL Hx Sexually Transmitted Disorders: No - PSYCHIATRIC Hx Substance Use: Yes (Smoked cocaine) - SURGICAL HISTORY Hx Surgeries: Yes Hx Gastric Bypass Surgery: Yes Hx Musculoskeletal Surgery: Yes (Right Carpal tunnel) Other/Comment: Left breast cyst excision - ANESTHESIA Hx Anesthesia: Yes Hx Anesthesia Reactions: No Hx Malignant Hyperthermia: No Meds Allergies/Adverse Reactions: Allergies Allergy/AdvReac Type Severity Reaction Status Date / Time No Known Allergies Allergy Verified 06/30/17 20:38 - Medications Medications: Current Medications Aspirin (Aspirin Chewable) 81 mg PO DAILY [facility] Last Admin: 07/02/17 09:12 Dose: 81 mg Calcium/Vitamin D (Oscal-D 250 Mg-125 Units Tab) 1 tab PO DAILY [facility] Last Admin: 07/02/17 09:13 Dose: 1 tab Carvedilol (Coreg) 6.25 mg PO BID [facility] Last Admin: 07/02/17 09:13 Dose: 6.25 mg Chlordiazepoxide (Librium) 25 mg PO Q6 [facility] PRN Reason: Taper Stop: 07/06/17 11:59 Last Admin: 07/02/17 06:00 Dose: 25 mg Chlordiazepoxide (Librium) 25 mg PO Q4H PRN PRN Reason: Alcohol Withdrawal Clonidine HCl (Catapres) 0.1 mg PO Q4H PRN PRN Reason: Symptoms of alcohol withdrawl Enoxaparin Sodium (Lovenox) 40 mg SC DAILY [facility] Last Admin: 07/02/17 10:59 Dose: 40 mg Folic Acid (Folic Acid) 1 mg PO DAILY [facility] Last Admin: 07/02/17 09:13 Dose: 1 mg Furosemide (Lasix) 20 mg PO DAILY [facility] Last Admin: 07/02/17 09:13 Dose: 20 mg Hydroxyzine HCl (Atarax) 25 mg PO Q6 PRN PRN Reason: Anxiety Last Admin: 07/01/17 04:11 Dose: 25 mg Ibuprofen (Motrin Tab) 600 mg PO Q6 PRN PRN Reason: Pain, moderate (4-7) Last Admin: 07/01/17 05:02 Dose: 600 mg Multivitamins (Hexavitamin) 1 tab PO DAILY [facility] Last Admin: 07/02/17 09:13 Dose: 1 tab Multivitamins/Minerals (Therapeutic-M Tab) 1 tab PO DAILY [facility] Last Admin: 07/02/17 09:12 Dose: 1 tab Spironolactone (Aldactone) 25 mg PO DAILY [facility] Last Admin: 07/02/17 09:13 Dose: 25 mg Thiamine HCl (Vitamin B1 Tab) 100 mg PO DAILY [facility] Last Admin: 07/02/17 09:13 Dose: 100 mg Trazodone HCl (Desyrel) 50 mg PO HS PRN PRN Reason: Insomnia Physical Exam - Constitutional Appears: Well, Non-toxic - Head Exam Head Exam: ATRAUMATIC, NORMAL INSPECTION - Eye Exam Eye Exam: PERRL. absent: Scleral icterus Pupil Exam: NORMAL ACCOMODATION - ENT Exam ENT Exam: Mucous Membranes Moist, Normal External Ear Exam - Neck Exam Neck exam: Positive for: Full Rom. Negative for: Lymphadenopathy, Thyromegaly - Respiratory Exam Respiratory Exam: Clear to Auscultation Bilateral, NORMAL BREATHING PATTERN - Cardiovascular Exam Cardiovascular Exam: REGULAR RHYTHM, JVD, +S1, +S2 - GI/Abdominal Exam GI & Abdominal Exam: Normal Bowel Sounds. absent: Organomegaly - Extremities Exam Extremities exam: Negative for: calf tenderness, pedal edema - Neurological Exam Neurological exam: CN II-XII Intact, Oriented x3 - Psychiatric Exam Psychiatric exam: Depressed, Flat Affect Results - Vital Signs Recent Vital Signs: Last Vital Signs Temp 97.7 F 07/02/17 07:20 Pulse 58 L 07/02/17 07:20 Resp 18 07/02/17 07:20 BP 123/82 07/02/17 09:13 Pulse Ox 100 07/02/17 07:20 - Labs Result Diagrams: 07/01/17 10:05 07/02/17 07:00 Labs: Laboratory Results - last 24 hr 07/01/17 07/01/17 07/01/17 15:36 15:53 22:47 D-Dimer, Quantitative 251 H Sodium Potassium Chloride Carbon Dioxide Anion Gap BUN Creatinine Est GFR ( Amer) Est GFR (Non-Af Amer) Random Glucose Calcium Total Creatine Kinase 138 H 108 CK-MB (Mass) 1.35 1.25 Troponin I, Quant < 0.0120 0.0140 NT-Pro-B Natriuret Pep Free T4 TSH 3rd Generation 07/02/17 07/02/17 07:00 07:00 D-Dimer, Quantitative Sodium 140 Potassium 4.2 Chloride 100 Carbon Dioxide 31 H Anion Gap 13 BUN 19 H Creatinine 0.9 Est GFR ( Amer) > 60 Est GFR (Non-Af Amer) > 60 Random Glucose 98 Calcium 8.8 Total Creatine Kinase CK-MB (Mass) Troponin I, Quant NT-Pro-B Natriuret Pep 3120 H Free T4 1.09 TSH 3rd Generation 3.08 - EKG Data EKG Interpreted by: Myself EKG shows normal: Sinus rhythm - Imaging and Cardiology Chest x-ray Status: Image reviewed by me (AICD, no infiltrates) Assessment & Plan - Assessment and Plan (Free Text) Assessment: 51 year old female with acute on chronic systolic CHF appears stable on Coreg and RAAS blockade, continue diuresis Chest pain is non cardiac she has a recent history of left heart catheterization showing non obstructed coronary arteries. Serial trop is negative for CA. EKG does not show any evidence of active ischemia - Date & Time Date: 07/02/17 Time: 12:41
[2017-07-03] MEDS: Calcium-Vit D 250 mg-125 Units Tab UD PO SCH (10:15)
[2017-07-03] MEDS: Multiple Vitamins Tab PO SCH (10:16)
[2017-07-03] MEDS: Multivitamin With Minerals Tab PO SCH (10:16)
[2017-07-03] MEDS: Enoxaparin 40 mg Syringe SC SCH (10:19)
[2017-07-03] MEDS ORDERED: Aluminum Hydroxide/Magnesium Hydroxide Susp (30 mL) PO STA (14:30)
--- NOTE | 2017-07-03 16:08 | CP.PCM.PN ---
Subjective - Date & Time of Evaluation Date of Evaluation: 07/03/17 Time of Evaluation: 16:06 - Subjective Subjective: in bed stessdeout depressed sob chest pain ocasionaly Objective - Vital Signs/Intake and Output Vital Signs (last 24 hours): Temp Pulse Resp BP Pulse Ox 98.0 F 70 20 129/88 99 07/03/17 15:30 07/03/17 15:49 07/03/17 15:30 07/03/17 15:30 07/03/17 15:30 - Medications Medications: Current Medications Aspirin (Aspirin Chewable) 81 mg PO DAILY [facility] Last Admin: 07/03/17 10:16 Dose: 81 mg Calcium/Vitamin D (Oscal-D 250 Mg-125 Units Tab) 1 tab PO DAILY [facility] Last Admin: 07/03/17 10:15 Dose: 1 tab Carvedilol (Coreg) 6.25 mg PO BID [facility] Last Admin: 07/03/17 10:16 Dose: 6.25 mg Chlordiazepoxide (Librium) 25 mg PO TID [facility] PRN Reason: Taper Stop: 07/06/17 11:59 Last Admin: 07/03/17 14:21 Dose: 25 mg Chlordiazepoxide (Librium) 25 mg PO Q4H PRN PRN Reason: Alcohol Withdrawal Last Admin: 07/02/17 20:29 Dose: 25 mg Clonidine HCl (Catapres) 0.1 mg PO Q4H PRN PRN Reason: Symptoms of alcohol withdrawl Enoxaparin Sodium (Lovenox) 40 mg SC DAILY [facility] Last Admin: 07/03/17 10:19 Dose: 40 mg Famotidine (Pepcid) 20 mg IVP Q12 [facility] Folic Acid (Folic Acid) 1 mg PO DAILY [facility] Last Admin: 07/03/17 10:16 Dose: 1 mg Furosemide (Lasix) 20 mg PO DAILY [facility] Last Admin: 07/03/17 10:15 Dose: 20 mg Hydroxyzine HCl (Atarax) 25 mg PO Q6 PRN PRN Reason: Anxiety Last Admin: 07/01/17 04:11 Dose: 25 mg Ibuprofen (Motrin Tab) 600 mg PO Q6 PRN PRN Reason: Pain, moderate (4-7) Last Admin: 07/01/17 05:02 Dose: 600 mg Multivitamins (Hexavitamin) 1 tab PO DAILY [facility] Last Admin: 07/03/17 10:16 Dose: 1 tab Multivitamins/Minerals (Therapeutic-M Tab) 1 tab PO DAILY [facility] Last Admin: 07/03/17 10:16 Dose: 1 tab Spironolactone (Aldactone) 25 mg PO DAILY [facility] Last Admin: 07/03/17 10:16 Dose: 25 mg Thiamine HCl (Vitamin B1 Tab) 100 mg PO DAILY [facility] Last Admin: 07/03/17 10:15 Dose: 100 mg Trazodone HCl (Desyrel) 50 mg PO PRN PRN Reason: Insomnia - Labs Labs: 07/01/17 10:05 07/02/17 07:00 - Constitutional Appears: Non-toxic - Head Exam Head Exam: NORMAL INSPECTION - Eye Exam Eye Exam: Normal appearance Pupil Exam: NORMAL ACCOMODATION - ENT Exam ENT Exam: Normal Exam - Neck Exam Neck Exam: Normal Inspection - Respiratory Exam Respiratory Exam: Clear to Ausculation Bilateral - Cardiovascular Exam Cardiovascular Exam: REGULAR RHYTHM - GI/Abdominal Exam GI & Abdominal Exam: Normal Bowel Sounds - Exam Exam: NORMAL INSPECTION - Extremities Exam Extremities Exam: Full ROM - Back Exam Back Exam: NORMAL INSPECTION - Neurological Exam Neurological Exam: Oriented x3 - Psychiatric Exam Psychiatric exam: Normal Mood - Skin Skin Exam: Normal Color Assessment and Plan - Assessment and Plan (Free Text) Assessment: depresion stress chf chest pain hx of alc abuse Plan: cont as per orders
--- NOTE | 2017-07-03 17:34 | CP.PCM.PN ---
Subjective - Date & Time of Evaluation Date of Evaluation: 07/03/17 Time of Evaluation: 17:33 - Subjective Subjective: Events Reviewed Objective - Vital Signs/Intake and Output Vital Signs (last 24 hours): Temp Pulse Resp BP Pulse Ox 98.0 F 70 20 129/88 99 07/03/17 15:30 07/03/17 15:49 07/03/17 15:30 07/03/17 15:30 07/03/17 15:30 - Medications Medications: Current Medications Aspirin (Aspirin Chewable) 81 mg PO DAILY [facility] Last Admin: 07/03/17 10:16 Dose: 81 mg Calcium/Vitamin D (Oscal-D 250 Mg-125 Units Tab) 1 tab PO DAILY [facility] Last Admin: 07/03/17 10:15 Dose: 1 tab Carvedilol (Coreg) 6.25 mg PO BID [facility] Last Admin: 07/03/17 17:22 Dose: 6.25 mg Chlordiazepoxide (Librium) 25 mg PO TID [facility] PRN Reason: Taper Stop: 07/06/17 11:59 Last Admin: 07/03/17 17:22 Dose: 25 mg Chlordiazepoxide (Librium) 25 mg PO Q4H PRN PRN Reason: Alcohol Withdrawal Last Admin: 07/02/17 20:29 Dose: 25 mg Clonidine HCl (Catapres) 0.1 mg PO Q4H PRN PRN Reason: Symptoms of alcohol withdrawl Enoxaparin Sodium (Lovenox) 40 mg SC DAILY [facility] Last Admin: 07/03/17 10:19 Dose: 40 mg Famotidine (Pepcid) 20 mg IVP Q12 [facility] Folic Acid (Folic Acid) 1 mg PO DAILY [facility] Last Admin: 07/03/17 10:16 Dose: 1 mg Furosemide (Lasix) 20 mg PO DAILY [facility] Last Admin: 07/03/17 10:15 Dose: 20 mg Hydroxyzine HCl (Atarax) 25 mg PO Q6 PRN PRN Reason: Anxiety Last Admin: 07/01/17 04:11 Dose: 25 mg Ibuprofen (Motrin Tab) 600 mg PO Q6 PRN PRN Reason: Pain, moderate (4-7) Last Admin: 07/01/17 05:02 Dose: 600 mg Multivitamins (Hexavitamin) 1 tab PO DAILY [facility] Last Admin: 07/03/17 10:16 Dose: 1 tab Multivitamins/Minerals (Therapeutic-M Tab) 1 tab PO DAILY [facility] Last Admin: 07/03/17 10:16 Dose: 1 tab Spironolactone (Aldactone) 25 mg PO DAILY [facility] Last Admin: 07/03/17 10:16 Dose: 25 mg Thiamine HCl (Vitamin B1 Tab) 100 mg PO DAILY [facility] Last Admin: 07/03/17 10:15 Dose: 100 mg Trazodone HCl (Desyrel) 50 mg PO HS PRN PRN Reason: Insomnia - Labs Labs: 07/01/17 10:05 07/02/17 07:00 Assessment and Plan - Assessment and Plan (Free Text) Assessment: 51 year old female with CHF now euvolemic. Continue current CHF meds. She is cleared for d/c from cardiac stand point
[2017-07-04] MEDS: Enoxaparin 40 mg Syringe SC SCH (09:48)
[2017-07-04] MEDS: Multiple Vitamins Tab PO SCH (09:49)
[2017-07-04] MEDS: Calcium-Vit D 250 mg-125 Units Tab UD PO SCH (09:50)
[2017-07-04] MEDS: Multivitamin With Minerals Tab PO SCH (09:50)
--- NOTE | 2017-07-04 12:16 | CP.PCM.PN ---
Subjective - Date & Time of Evaluation Date of Evaluation: 07/04/17 Time of Evaluation: 12:14 - Subjective Subjective: weeke less depresed need to get away from the place she live to help her not to drink alc again less depressed Objective - Vital Signs/Intake and Output Vital Signs (last 24 hours): Temp Pulse Resp BP Pulse Ox 97.7 F 70 17 130/85 100 07/04/17 07:30 07/04/17 07:30 07/04/17 07:30 07/04/17 09:49 07/04/17 07:30 - Medications Medications: Current Medications Aspirin (Aspirin Chewable) 81 mg PO DAILY [facility] Last Admin: 07/04/17 09:49 Dose: 81 mg Calcium/Vitamin D (Oscal-D 250 Mg-125 Units Tab) 1 tab PO DAILY [facility] Last Admin: 07/04/17 09:50 Dose: 1 tab Carvedilol (Coreg) 6.25 mg PO BID [facility] Last Admin: 07/04/17 09:49 Dose: 6.25 mg Chlordiazepoxide (Librium) 25 mg PO BID [facility] PRN Reason: Taper Stop: 07/06/17 11:59 Last Admin: 07/04/17 09:49 Dose: 25 mg Chlordiazepoxide (Librium) 25 mg PO Q4H PRN PRN Reason: Alcohol Withdrawal Last Admin: 07/02/17 20:29 Dose: 25 mg Clonidine HCl (Catapres) 0.1 mg PO Q4H PRN PRN Reason: Symptoms of alcohol withdrawl Enoxaparin Sodium (Lovenox) 40 mg SC DAILY [facility] Last Admin: 07/04/17 09:48 Dose: 40 mg Famotidine (Pepcid) 20 mg IVP Q12 [facility] Last Admin: 07/04/17 09:50 Dose: 20 mg Folic Acid (Folic Acid) 1 mg PO DAILY [facility] Last Admin: 07/04/17 09:50 Dose: 1 mg Furosemide (Lasix) 20 mg PO DAILY [facility] Last Admin: 07/04/17 09:49 Dose: 20 mg Hydroxyzine HCl (Atarax) 25 mg PO Q6 PRN PRN Reason: Anxiety Last Admin: 07/01/17 04:11 Dose: 25 mg Ibuprofen (Motrin Tab) 600 mg PO Q6 PRN PRN Reason: Pain, moderate (4-7) Last Admin: 07/01/17 05:02 Dose: 600 mg Multivitamins (Hexavitamin) 1 tab PO DAILY [facility] Last Admin: 07/04/17 09:49 Dose: 1 tab Multivitamins/Minerals (Therapeutic-M Tab) 1 tab PO DAILY [facility] Last Admin: 07/04/17 09:50 Dose: 1 tab Spironolactone (Aldactone) 25 mg PO DAILY [facility] Last Admin: 07/04/17 09:49 Dose: 25 mg Thiamine HCl (Vitamin B1 Tab) 100 mg PO DAILY [facility] Last Admin: 07/04/17 09:49 Dose: 100 mg Trazodone HCl (Desyrel) 50 mg PO HS PRN PRN Reason: Insomnia - Labs Labs: 07/01/17 10:05 07/02/17 07:00 - Constitutional Appears: Non-toxic - Head Exam Head Exam: NORMAL INSPECTION - Eye Exam Eye Exam: Normal appearance Pupil Exam: NORMAL ACCOMODATION - ENT Exam ENT Exam: Mucous Membranes Moist - Neck Exam Neck Exam: Full ROM - Respiratory Exam Respiratory Exam: NORMAL BREATHING PATTERN - Cardiovascular Exam Cardiovascular Exam: REGULAR RHYTHM - GI/Abdominal Exam GI & Abdominal Exam: Normal Bowel Sounds - Rectal Exam Rectal Exam: NORMAL INSPECTION - Extremities Exam Extremities Exam: Normal Capillary Refill - Back Exam Back Exam: NORMAL INSPECTION - Neurological Exam Neurological Exam: Alert, Awake - Psychiatric Exam Psychiatric exam: Depressed - Skin Skin Exam: Normal Color Assessment and Plan - Assessment and Plan (Free Text) Assessment: deoresion anexiety s/p alc withdrwal generalised weekness Plan: pt soscial servise
--- NOTE | 2017-07-04 13:27 | PCM.PYCHPN ---
Psychiatric Progress Note - Psychiatric Progress Note Patient seen today, length of contact: 15 min Patient Chief Complaint: I am feeling depressed. Problems Identified/Issues Discussed: Patient seen and evaluated, chart reviewed and discussed with the nurse. Patient reports improvement in her mood and reports improvement in the withdrawal symptoms. She remained isolated and withdrawn. She denies any auditory or visual hallucinations. She is taking medication and denies any side effects. She needs more time for stabilization. Supportive therapy and psychoeducation were given. Medication Change: Yes Medical Record Reviewed: Yes Mental Status Examination - Cognitive Function Orientation: Person, Place, Situation, Time Memory: Intact Attention: WNL Concentration: Poor Association: WNL Fund of Knowledge: Poor - Mood Mood: Depressed, Anxious - Affect Affect: Broad - Speech Speech: Soft - Formal Thought Process Formal Thought Process: No Impairment - Suicidal Ideation Suicidal Ideation: No - Homicidal Ideation Homicidal Ideation: No Goal/Treatment Plan - Goal/Treatment Plan Need for Continued Stay: Discharge may exacerbated symptoms, Severe functional impairment Progress Toward Problem(s) and Goals/Treatment Plan: Major Depressive Disorder Alcohol abuse disorder Cocaine abuse disorder Alcohol withdrawal Major Depressive Disorder Zoloft 50 mg Atarax 25 mg PO PRN Trazodone 50 mg PO HS Alcohol withdrawal Librium taper - Smoking Cessation Smoking Cessation Initiated: No
--- NOTE | 2017-07-04 13:27 | PCM.PYCHPN ---
Psychiatric Progress Note - Psychiatric Progress Note Patient seen today, length of contact: 15 min Patient Chief Complaint: I ma feeling much better.' Problems Identified/Issues Discussed: Patient seen and evaluated, chart reviewed and discussed with the nurse. Patient reports a lot of improvement in her mood and in the withdrawal symptoms. She denies any auditory or visual hallucinations. She is taking medication and denies any side effects. She needs more time for stabilization. Supportive therapy and psychoeducation were given. Medication Change: Yes (librium taper) Medical Record Reviewed: Yes Mental Status Examination - Cognitive Function Orientation: Person, Place, Situation, Time Memory: Intact Attention: WNL Concentration: WNL Association: WNL Fund of Knowledge: WNL - Mood Mood: Depressed, Anxious - Affect Affect: Broad - Speech Speech: Soft - Formal Thought Process Formal Thought Process: No Impairment - Suicidal Ideation Suicidal Ideation: No - Homicidal Ideation Homicidal Ideation: No Goal/Treatment Plan - Goal/Treatment Plan Need for Continued Stay: Discharge may exacerbated symptoms, Severe functional impairment Progress Toward Problem(s) and Goals/Treatment Plan: Major Depressive Disorder Alcohol abuse disorder Cocaine abuse disorder Alcohol withdrawal Major Depressive Disorder Zoloft 50 mg Atarax 25 mg PO PRN Trazodone 50 mg PO HS Alcohol withdrawal Librium taper - Smoking Cessation Smoking Cessation Initiated: No
[2017-07-04 14:58] LABS: RBC URINE 1 /hpf (0-3); URINE BILIRUBIN NEGATIVE (NEGATIVE); URINE BLOOD NEGATIVE (NEGATIVE); URINE COLOR Yellow (YELLOW); URINE GLUCOSE (UA) NORMAL (Normal); URINE KETONE NEGATIVE (NEGATIVE); URINE LEUKOCYTE ESTERASE NEG Leu/uL (Negative); URINE PROTEIN NEGATIVE (NEGATIVE); URINE UROBILINOGEN NORMAL mg/dL (0.2-1.0); WBC URINE < 1 /hpf (0-5)
[2017-07-04 17:02] VITALS: RESP 20
[2017-07-05 06:25] LABS: HEMATOCRIT 38.1 % (34.0-47.0); MEAN CELL VOLUME 99.7 fL (81.0-99.0); MEAN CORPUSCULAR HEMOGLOBIN 33.5 pg (27.0-31.0); MEAN CORPUSCULAR HGB CONC 33.6 g/dL (33.0-37.0); MEAN PLATELET VOLUME 9.8 fL (7.2-11.7); RED CELL DISTRIBUTION WIDTH 14.2 % (11.5-14.5); WHITE BLOOD COUNT 5.7 K/uL (4.8-10.8)
[2017-07-05] MEDS: Multiple Vitamins Tab PO SCH (10:17)
[2017-07-05] MEDS: Multivitamin With Minerals Tab PO SCH (10:17)
[2017-07-05] MEDS: Calcium-Vit D 250 mg-125 Units Tab UD PO SCH (10:18)
[2017-07-05] MEDS: Enoxaparin 40 mg Syringe SC SCH (10:47)
[2017-07-05 16:34] VITALS: BP 135/86; PULSE 77; TEMP 97.7; O2SAT 98
--- NOTE | 2017-07-05 17:16 | PCM.HF ---
Heart Failure Core Measure - Heart Failure Ejection Fraction: Less Than 40 % (EF 35-40%) JORGE Inhibitor Prescribed: No Contraindication/Reason for not providing: CKD Beta-Ghanshyam Prescribed: Carvedilol Angiotensin II Receptor Ghanshyam Prescribed: No Contraindication/Reason for not providing: CKD AnticoagulationTherapy for Atrial Fibrillation/Atrialflutter: No Contraindication/Reason for not providing: no afib Aldosterone Antagonist Prescribed: Yes Hydralazine Nitrate Prescribed: No Contraindication/Reason for not providing: renal dysfunction Implantable Cardioverter Defibrillator Therapy: Yes Contraindication/Reason for not providing: pacemaker Cardiac Resynchronization Therapy Prescribed: No Contraindication/Reason for not providing: not indicated - Follow up Will be discharged to: Home Follow Up Date (must be within 7 days from discharge): 07/12/17 Follow Up Time: 09:00
--- NOTE | 2017-07-05 17:19 | CP.PCM.PN ---
Subjective - Date & Time of Evaluation Date of Evaluation: 07/05/17 Time of Evaluation: 17:16 - Subjective Subjective: pt walking around feels beter visiting discused with psychatry can be discharged Objective - Vital Signs/Intake and Output Vital Signs (last 24 hours): Temp Pulse Resp BP Pulse Ox 97.7 F 77 20 135/86 98 07/05/17 15:20 07/05/17 15:20 07/05/17 15:20 07/05/17 15:20 07/05/17 15:20 - Medications Medications: Current Medications Aspirin (Aspirin Chewable) 81 mg PO DAILY [facility] Last Admin: 07/05/17 10:17 Dose: 81 mg Calcium/Vitamin D (Oscal-D 250 Mg-125 Units Tab) 1 tab PO DAILY [facility] Last Admin: 07/05/17 10:18 Dose: 1 tab Carvedilol (Coreg) 6.25 mg PO BID [facility] Last Admin: 07/05/17 10:18 Dose: 6.25 mg Chlordiazepoxide (Librium) 25 mg PO DAILY [facility] PRN Reason: Taper Stop: 07/06/17 11:59 Last Admin: 07/05/17 10:15 Dose: 25 mg Chlordiazepoxide (Librium) 25 mg PO Q4H PRN PRN Reason: Alcohol Withdrawal Last Admin: 07/02/17 20:29 Dose: 25 mg Clonidine HCl (Catapres) 0.1 mg PO Q4H PRN PRN Reason: Symptoms of alcohol withdrawl Enoxaparin Sodium (Lovenox) 40 mg SC DAILY [facility] Last Admin: 07/05/17 10:47 Dose: 40 mg Famotidine (Pepcid) 20 mg IVP Q12 [facility] Last Admin: 07/05/17 10:15 Dose: 20 mg Folic Acid (Folic Acid) 1 mg PO DAILY [facility] Last Admin: 07/05/17 10:17 Dose: 1 mg Furosemide (Lasix) 20 mg PO DAILY [facility] Last Admin: 07/05/17 10:16 Dose: 20 mg Hydroxyzine HCl (Atarax) 25 mg PO Q6 PRN PRN Reason: Anxiety Last Admin: 07/05/17 10:18 Dose: 25 mg Ibuprofen (Motrin Tab) 600 mg PO Q6 PRN PRN Reason: Pain, moderate (4-7) Last Admin: 07/04/17 21:54 Dose: 600 mg Multivitamins (Hexavitamin) 1 tab PO DAILY [facility] Last Admin: 07/05/17 10:17 Dose: 1 tab Multivitamins/Minerals (Therapeutic-M Tab) 1 tab PO DAILY [facility] Last Admin: 07/05/17 10:17 Dose: 1 tab Spironolactone (Aldactone) 25 mg PO DAILY [facility] Last Admin: 07/05/17 10:17 Dose: 25 mg Thiamine HCl (Vitamin B1 Tab) 100 mg PO DAILY [facility] Last Admin: 07/05/17 10:17 Dose: 100 mg Trazodone HCl (Desyrel) 100 mg PO PRN PRN Reason: Insomnia - Labs Labs: 07/05/17 06:19 07/02/17 07:00 - Constitutional Appears: Non-toxic - Head Exam Head Exam: NORMAL INSPECTION - Eye Exam Eye Exam: Normal appearance Pupil Exam: NORMAL ACCOMODATION - ENT Exam ENT Exam: Mucous Membranes Moist - Neck Exam Neck Exam: Normal Inspection - Respiratory Exam Respiratory Exam: Clear to Ausculation Bilateral - Cardiovascular Exam Cardiovascular Exam: REGULAR RHYTHM - GI/Abdominal Exam GI & Abdominal Exam: Soft - Rectal Exam Rectal Exam: NORMAL INSPECTION - Exam Exam: NORMAL INSPECTION - Extremities Exam Extremities Exam: Full ROM - Back Exam Back Exam: NORMAL INSPECTION - Neurological Exam Neurological Exam: Alert, Normal Gait, Oriented x3 - Psychiatric Exam Psychiatric exam: Depressed, Normal Affect - Skin Skin Exam: Normal Color Assessment and Plan - Assessment and Plan (Free Text) Assessment: depresion anexiety nonischemic cardiomyopathy chf Plan: will d/c cont med f/u in my office
--- NOTE | 2017-07-06 10:38 | VASCLAB ---
PROCEDURE: Lower Extremity Venous Duplex Exam. HISTORY: sob with elevated d-dimer PRIORS: None. TECHNIQUE: Bilateral common femoral, femoral, popliteal and posterior tibial, peroneal and great saphenous veins were evaluated. Flow was assessed with color Doppler, compressibility, assessment of phasic flow and augmentation response. Report prepared by JHON Boles, RVT FINDINGS: RIGHT: 1. Common Femoral Vein: 1.1. Compressibility - Fully compressible: Thrombus - None : Flow - Phasic: Augmentation -Normal: Reflux - None. 2. Femoral Vein: 2.1. Compressibility - Fully compressible: Thrombus - None : Flow - Phasic: Augmentation -Normal: Reflux - None. 3. Popliteal Vein: 3.1. Compressibility - Fully compressible: Thrombus - None : Flow - Phasic: Augmentation -Normal: Reflux - None. 4. Posterior Tibial Vein: 4.1. Compressibility - Fully compressible: Thrombus - None: Flow - Phasic: Augmentation -Normal: Reflux - None. 5. Peroneal Vein: 5.1. Compressibility - Fully compressible: Thrombus - None: Flow - Phasic: Augmentation -Normal: Reflux - None. 6. Great Saphenous Vein: 6.1. Compressibility - Fully compressible: Thrombus - None: Flow - Phasic: Augmentation - Normal: Reflux - None. LEFT: 1. Common Femoral Vein: 1.1. Compressibility - Fully compressible: Thrombus - None: Flow - Phasic: Augmentation -Normal: Reflux - None. 2. Femoral Vein: 2.1. Compressibility - Fully compressible: Thrombus - None: Flow - Phasic: Augmentation -Normal: Reflux - None. 3. Popliteal Vein: 3.1. Compressibility - Fully compressible: Thrombus - None : Flow - Phasic: Augmentation -Normal: Reflux - None. 4. Posterior Tibial Vein: 4.1. Compressibility - Fully compressible: Thrombus - None: Flow - Phasic: Augmentation -Normal: Reflux - None. 5. Peroneal Vein: 5.1. Compressibility - Fully compressible: Thrombus - None: Flow - Phasic: Augmentation -Normal: Reflux - None. 6. Great Saphenous Vein: 6.1. Compressibility - Fully compressible: Thrombus - None: Flow - Phasic: Augmentation - Normal: Reflux - None. OTHER FINDINGS: Right: None significant. Left: None significant. IMPRESSION: Right: No evidence of deep or superficial vein thrombosis of the right lower extremity. Normal valve function noted of the right side. Left: No evidence of deep or superficial vein thrombosis of the left lower extremity. Normal valve function noted of the left side.
--- NOTE | 2017-07-14 00:46 | CARD ---
APPROVED REPORT EKG Measurement Heart [id number] <Conclusion> Sinus rhythm with premature atrial complexes Left axis deviation Minimal voltage criteria for LVH, may be normal variant Nonspecific T wave abnormality Prolonged QT Abnormal ECG
--- NOTE | 2017-07-14 00:46 | CARD ---
APPROVED REPORT EKG Measurement Heart [id number] MA [id number] <Conclusion> Normal sinus rhythm Possible Left atrial enlargement Left axis deviation Left ventricular hypertrophy Nonspecific ST abnormality Abnormal ECG
--- NOTE | 2017-07-14 00:47 | CARD ---
APPROVED REPORT EKG Measurement Heart [id number] ID [id number] <Conclusion> Sinus rhythm with frequent premature ventricular complexes Left axis deviation Moderate voltage criteria for LVH, may be normal variant Nonspecific ST and T wave abnormality Prolonged QT Abnormal ECG
== END 2017-07-05 19:10 | disposition home or self-care (01) | DRG 881 ==
LOC: C.ER 20:29 → C.9OBSV 21:00 → OBSVTOIN 07-01 02:56 → C.5E 07-01 03:03 → C.6T 07-01 10:32
PROVIDERS: ADMIT Internal Medicine; ATTEND Internal Medicine
DX: F32.9 Major depressive disorder, single episode, unspecified (principal); I50.23 Acute on chronic systolic (congestive) heart failure; I42.9 Cardiomyopathy, unspecified; F10.239 Alcohol dependence with withdrawal, unspecified; I11.0 Hypertensive heart disease with heart failure; J45.909 Unspecified asthma, uncomplicated; F14.10 Cocaine abuse, uncomplicated; F17.210 Nicotine dependence, cigarettes, uncomplicated; Z95.810 Presence of automatic (implantable) cardiac defibrillator

== ENCOUNTER 2017-08-02 13:48 | Inpatient (IN) | payer BC ==
[2017-08-02 13:48] VITALS: BMI 29.1
[2017-08-02 15:03] LABS: BASO # 0.1 K/uL (0.0-0.2); EOS # 0.1 K/uL (0.0-0.7); EOS % 1.5 % (0.0-4.0); HEMATOCRIT 38.9 % (34.0-47.0); LYMPH # 1.2 K/uL (1.0-4.3); MEAN CELL VOLUME 100.9 fL (81.0-99.0); MEAN CORPUSCULAR HEMOGLOBIN 33.5 pg (27.0-31.0); MEAN CORPUSCULAR HGB CONC 33.2 g/dL (33.0-37.0); MEAN PLATELET VOLUME 10.8 fL (7.2-11.7); MONO # 0.6 K/uL (0.0-0.8); RED CELL DISTRIBUTION WIDTH 14.6 % (11.5-14.5); WHITE BLOOD COUNT 7.3 K/uL (4.8-10.8)
[2017-08-02 15:08] LABS: CHLORIDE 101 mmol/L (98-107)
[2017-08-02 15:09] LABS: SODIUM 143 mmol/L (132-148)
[2017-08-02 15:10] LABS: POTASSIUM 4.1 mmol/L (3.6-5.2)
[2017-08-02 15:11] LABS: INR 1.2
[2017-08-02 15:12] LABS: ALB/GLOB RATIO 1.2 (1.0-2.1); ALKALINE PHOSPHATASE 61 U/L (38-126); ALT/SGPT 55 U/L (9-52); AST/SGOT 41 U/L (14-36); BILIRUBIN,TOTAL 0.8 mg/dL (0.2-1.3); BLOOD UREA NITROGEN 16 mg/dL (7-17); CARBON DIOXIDE 30 mmol/L (22-30); GFR AFRICAN-AMERICAN > 60; GLUCOSE,RANDOM 85 mg/dL (65-105); TOTAL PROTEIN 6.7 g/dL (6.3-8.3)
[2017-08-02 15:13] LABS: ALCOHOL SERUM < 10 mg/dl (0-10); CALCIUM 9.2 mg/dl (8.6-10.4)
--- NOTE | 2017-08-02 15:14 | C.PDOC ---
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 Patient states her feet have been swollen for the past 1 week but recently developed the chest pain 2 days ago, describes it as intermittent, left sided and self limited. Patient denies fever, chills, nausea, vomiting, abdominal pain, back pain, weakness or numbness. Time Seen by Provider: 08/02/17 14:33 Chief Complaint (Nursing): Chest Pain History Per: Patient History/Exam Limitations: no limitations Onset/Duration Of Symptoms: Gradual Current Symptoms Are (Timing): Still Present Past Medical History Reviewed: Historical Data, Nursing Documentation, Vital Signs Vital Signs: Last Vital Signs Temp 98.4 F 08/02/17 17:08 Pulse 78 08/02/17 17:08 Resp 18 08/02/17 15:41 BP 123/81 08/02/17 17:08 Pulse Ox 97 08/02/17 17:44 - Medical History PMH: Asthma, Back Problems, CHF, Depression, HTN Surgical History: Pacemaker (AICD) - [employer] Procedures FLUOROSCOPY OF LEFT HEART USING LOW OSMOLAR CONTRAST (03/09/16) LOCAL EXCIS BREAST LES (02/16/03) MEASURE OF CARDIAC SAMPL & PRESSURE, L HEART, PERC APPROACH (03/09/16) Family History: States: No Known Family Hx - Social History Hx Tobacco Use: Yes Hx Alcohol Use: No (Occasional) Hx Substance Use: No (Smoked cocaine) - Immunization History Hx Tetanus Toxoid Vaccination: No Hx Influenza Vaccination: No Hx Pneumococcal Vaccination: Yes Review Of Systems Except As Marked, All Systems Reviewed And Found Negative. Constitutional: Negative for: Fever, Chills Cardiovascular: Positive for: Chest Pain Respiratory: Positive for: Shortness of Breath Gastrointestinal: Negative for: Nausea, Vomiting, Abdominal Pain Musculoskeletal: Negative for: Back Pain Neurological: Negative for: Weakness, Numbness Physical Exam - Physical Exam Appears: Non-toxic, No Acute Distress Skin: Warm, Dry, No Rash Head: Atraumatic, Normacephalic Neck: Normal, Normal ROM, Supple Chest: Symmetrical, No Tenderness Cardiovascular: Rhythm Regular, No Murmur Respiratory: Normal Breath Sounds, No Rales, No Rhonchi, No Stridor, No Wheezing Gastrointestinal/Abdominal: Normal Exam, Soft, No Tenderness, No Guarding, No Rebound Extremity: No Calf Tenderness, Other ((+) +1 pitting edema, bilaterally) Neurological/Psych: Oriented x3, Normal Speech, Normal Motor, Normal Sensation ED Course And Treatment - Laboratory Results Result Diagrams: 08/02/17 14:57 08/02/17 14:57 ECG: Interpreted By Me, Viewed By Me ECG Rhythm: Sinus Rhythm Interpretation Of ECG: SR@73/min, LAD, incomplete RBBB, T wave inversion in V2, no acute ST-T changes. O2 Sat by Pulse Oximetry: 97 (RA) Pulse Ox Interpretation: Normal - Radiology CXR: Viewed By Me CXR Interpretation: Yes: Cardiomegaly - Other Rad CXR X-Ray: Viewed By Me, Read By Radiologist Interpretation: HISTORY: chest pain. COMPARISON: Chest x-ray performed . TECHNIQUE: Chest PA and lateral. FINDINGS: LUNGS: No focal consolidation. Bilateral hilar prominence. Please note that chest x-ray has limited sensitivity for the detection of pulmonary masses. PLEURA: No significant pleural effusion identified. No definite pneumothorax . CARDIOVASCULAR: At least moderate cardiomegaly. Single lead left-sided AICD. OSSEOUS STRUCTURES: Degenerative changes. VISUALIZED UPPER ABDOMEN: Unremarkable. OTHER FINDINGS: None. IMPRESSION: At least moderate cardiomegaly with AICD present. Progress Note: On re-eavluation, pt remained unchanged. case discussed with ED attenidng and attending agrees with admission. Blood work review, abnoraml D- Dimer noted, and CTA r/o PE order. Case discussed with and admission to [facility] with on-call card. consult. Medical Decision Making Medical Decision Making: PLAN: * CXR * EKG * Alcohol Serum * Drug Screen * Troponin * D-Dimer * CBC * CMP * Urinalysis * Lasix IVP Disposition - Disposition Disposition: HOSPITALIZED Disposition Time: 18:01 Condition: STABLE Forms: [facility] (Malay) - Clinical Impression Clinical Impression: Chest pain, Congestive heart failure, Acute CHF (congestive heart failure) - PA / CASE MANAGER / Resident Statement MD/DO has reviewed & agrees with the documentation as recorded. - Scribe Statement The provider has reviewed the documentation as recorded by the Scribe Neli Robbins All medical record entries made by the Scribe were at my direction and personally dictated by me. I have reviewed the chart and agree that the record accurately reflects my personal performance of the history, physical exam, medical decision making, and the department course for this patient. I have also personally directed, reviewed, and agree with the discharge instructions and disposition.
--- NOTE | 2017-08-02 15:38 | RAD ---
HISTORY: chest pain COMPARISON: Chest x-ray performed 07/01/17 TECHNIQUE: Chest PA and lateral FINDINGS: LUNGS: No focal consolidation. Bilateral hilar prominence. Please note that chest x-ray has limited sensitivity for the detection of pulmonary masses. PLEURA: No significant pleural effusion identified. No definite pneumothorax . CARDIOVASCULAR: At least moderate cardiomegaly. Single lead left-sided AICD. OSSEOUS STRUCTURES: Degenerative changes. VISUALIZED UPPER ABDOMEN: Unremarkable. OTHER FINDINGS: None. IMPRESSION: At least moderate cardiomegaly with AICD present.
[2017-08-02 15:50] LABS: RBC URINE 13 /hpf (0-3); URINE BILIRUBIN NEGATIVE (NEGATIVE); URINE BLOOD 1+ (NEGATIVE); URINE COLOR Yellow (YELLOW); URINE GLUCOSE (UA) NORMAL (Normal); URINE HYALINE CAST 0-2 /lpf (0-2); URINE KETONE NEGATIVE (NEGATIVE); URINE LEUKOCYTE ESTERASE NEG Leu/uL (Negative); URINE PROTEIN 2+ mg/dL (NEGATIVE); WBC URINE 1 /hpf (0-5)
[2017-08-02] MEDS ORDERED: Iohexol 300 100 ML IJ ONE (18:33)
--- NOTE | 2017-08-02 20:31 | CT ---
EXAM: CT Angiography Chest With Intravenous Contrast EXAM DATE/TIME: Exam ordered 08/02/2017 5:57 PM CLINICAL HISTORY: 52 years old, female; Pain and signs and symptoms; Shortness of breath; Chest pain; Left-sided chest pain; Additional info: SOB, cp, high d-dimer TECHNIQUE: Axial computed tomographic angiography images of the chest with intravenous contrast using pulmonary embolism protocol. All CT scans at this facility use one or more dose reduction techniques, viz.: automated exposure control; ma/kV adjustment per patient size (including targeted exams where dose is matched to indication; i.e. head); or iterative reconstruction technique. MIP reconstructed images were created and reviewed. Coronal and sagittal reformatted images were created and reviewed. CONTRAST: 100 mL of OMNIPAQUE 300 administered intravenously. COMPARISON: CT - ANGIOGRAPHY CHEST 07/01/2017 6:45:27 PM FINDINGS: Pulmonary arteries: The main pulmonary artery measures 3.5 cm in maximum diameter. No pulmonary embolism. Aorta: No acute findings. No thoracic aortic aneurysm. Lungs: There is mild thickening of the interlobular septa in the right middle lobe. Mosaic perfusion abnormality is noted diffusely in both lungs. Coarse reticular densities the left lower lobe suggests scar Extensive beam hardening artifact is associated with a pacemaker in the left upper chest wall discoid atelectasis is noted within the lingula. Discoid atelectasis or scar is seen in the right middle lobe. Perihilar interstitial thickening is noted bilaterally, right side greater than left. A 3.7 mm nodule is noted in the right upper lobe (series 4 image 27). This is unchanged. Pleural space: Unremarkable. No significant effusion. No pneumothorax. Heart: The heart is moderately enlarged. No significant pericardial effusion. No evidence of RV dysfunction. Mediastinum: There is a moderate-sized sliding hiatal hernia. Bones/joints: No acute fracture. No dislocation. Soft tissues: Unremarkable. Lymph nodes: Unremarkable. No enlarged lymph nodes. Stomach and bowel: Postsurgical changes are noted in the stomach suggesting previous gastric bypass surgery. IMPRESSION: 1. No pulmonary embolism. 2. Mosaic perfusion abnormality noted bilaterally. This can be secondary to air trapping or be a manifestation of venoocclusive disease. Interstitial lung disease is another consideration. Allowing for technical differences differences, probably no change. 3. Right pulmonary nodules. No significant change. 4. Cardiomegaly. 5. Moderate-sized sliding hiatal hernia.
[2017-08-02] MEDS: Oxycodone/Acetaminophen 5/325 mg Tab PO PRN (21:44)
[2017-08-03 06:35] LABS: BASO # 0.1 K/uL (0.0-0.2); BASO % 0.9 % (0.0-2.0); EOS # 0.2 K/uL (0.0-0.7); EOS % 2.2 % (0.0-4.0); HEMATOCRIT 40.2 % (34.0-47.0); LYMPH # 1.7 K/uL (1.0-4.3); LYMPH % 25.5 % (20.0-40.0); MEAN CELL VOLUME 101.2 fL (81.0-99.0); MEAN CORPUSCULAR HEMOGLOBIN 34.2 pg (27.0-31.0); MEAN CORPUSCULAR HGB CONC 33.8 g/dL (33.0-37.0); MEAN PLATELET VOLUME 11.1 fL (7.2-11.7); MONO # 0.5 K/uL (0.0-0.8); RED CELL DISTRIBUTION WIDTH 14.8 % (11.5-14.5); WHITE BLOOD COUNT 6.8 K/uL (4.8-10.8)
[2017-08-03 06:39] LABS: CHLORIDE 100 mmol/L (98-107); POTASSIUM 3.6 mmol/L (3.6-5.2); SODIUM 143 mmol/L (132-148)
[2017-08-03 06:41] LABS: GFR AFRICAN-AMERICAN > 60
[2017-08-03 06:42] LABS: ALB/GLOB RATIO 1.2 (1.0-2.1); ALKALINE PHOSPHATASE 60 U/L (38-126); ALT/SGPT 55 U/L (9-52); AST/SGOT 45 U/L (14-36); BILIRUBIN,TOTAL 1.3 mg/dL (0.2-1.3); BLOOD UREA NITROGEN 15 mg/dL (7-17); CARBON DIOXIDE 29 mmol/L (22-30); GLUCOSE,RANDOM 83 mg/dL (65-105); TOTAL PROTEIN 6.8 g/dL (6.3-8.3)
[2017-08-03 06:43] LABS: CALCIUM 8.6 mg/dl (8.6-10.4)
[2017-08-03] MEDS: Enoxaparin 40 mg Syringe SC SCH (09:47)
[2017-08-03] MEDS ORDERED: IRON 27 MG PO SCH (10:00)
--- NOTE | 2017-08-03 10:20 | CP.PCM.PN ---
Subjective - Date & Time of Evaluation Date of Evaluation: 08/03/17 Time of Evaluation: : - Subjective Subjective: Dr. Brown progress note Patient is seen in room. She reports coming to the hospital due to shortness of breath, and lower leg swelling. She was diagnosed with congestive heart failure a few months ago and says that for many months she has been sleeping on many pillows or on a reclincer. She also says she frequenty has chest pain associated with exertion. She denies any dysuria, fever, chills, nausea, vomiting, or cough. Objective - Vital Signs/Intake and Output Vital Signs (last 24 hours): Temp Pulse Resp BP Pulse Ox 98.7 F 66 16 154/101 H 99 08/02/17 22:00 08/03/17 07:03 08/03/17 07:03 08/03/17 09:42 08/03/17 07:00 Intake and Output: 08/03/17 08/03/17 06:59 18:59 Output Total 300 Balance -300 - Medications Medications: Current Medications Aspirin (Ecotrin) 81 mg PO DAILY [facility] Last Admin: 08/03/17 09:40 Dose: 81 mg Carvedilol (Coreg) 12.5 mg PO BID [facility] Last Admin: 08/03/17 09:39 Dose: 12.5 mg Enoxaparin Sodium (Lovenox) 40 mg SC DAILY [facility] Last Admin: 08/03/17 09:47 Dose: 40 mg Furosemide (Lasix) 40 mg IVP DAILY [facility] Last Admin: 08/03/17 09:42 Dose: 40 mg Home Med (Iron) 27 mg PO DAILY [facility] Influenza Virus Vaccine (Afluria) 45 mcg IM .ONCE ONE Stop: 08/04/17 10:01 Oxycodone/Acetaminophen (Percocet 5/325 Mg Tab) 1 tab PO Q4H PRN PRN Reason: Pain, moderate (4-7) Stop: 08/05/17 21:26 Last Admin: 08/02/17 21:44 Dose: 1 tab Pantoprazole Sodium (Protonix Inj) 40 mg IVP DAILY [facility] Last Admin: 08/03/17 09:48 Dose: 40 mg Spironolactone (Aldactone) 25 mg PO DAILY [facility] Last Admin: 08/03/17 09:39 Dose: 25 mg - Labs Labs: 08/03/17 06:24 08/03/17 06:24 PT 13.5 SECONDS (9.7-12.2) H 08/02/17 14:57 INR 1.2 08/02/17 14:57 APTT 30 SECONDS (21-34) 08/02/17 14:57 - Constitutional Appears: Non-toxic, No Acute Distress - Eye Exam Eye Exam: Normal appearance - Respiratory Exam Respiratory Exam: Decreased Breath Sounds, Rales. absent: Clear to Ausculation Bilateral, Rhonchi, Wheezes - Cardiovascular Exam Cardiovascular Exam: REGULAR RHYTHM, RRR, +S1, +S2. absent: Gallop, Rubs - GI/Abdominal Exam GI & Abdominal Exam: Soft, Normal Bowel Sounds. absent: Distended, Firm, Tenderness - Extremities Exam Extremities Exam: Pedal Edema. absent: Calf Tenderness, Normal Inspection - Neurological Exam Neurological Exam: Alert - Psychiatric Exam Psychiatric exam: Normal Affect, Normal Mood - Skin Skin Exam: Normal Color Assessment and Plan (1) Chest pain Assessment & Plan: CT scan of the chest is negative for PE. Cardiac enzymes are negative as well. Status: Acute (2) Congestive heart failure Assessment & Plan: Dr. Montana is consulted for cardiology Aldactone 25mg daily Lasix 40mg IV bid I & O continous daily weight measurement Status: Acute (3) HTN (hypertension) Assessment & Plan: Coreg 12.5 mg bid, Status: Acute (4) Elevated LFTs Assessment & Plan: follow up hepatitis panel. Status: Acute (5) Asthma Assessment & Plan: duoneb 3ml q6h prn Status: Acute (6) Prophylactic measure Assessment & Plan: Lovenox 40mg sc, scds contraindicated due to lower extremity swelling, pepcid 20mg bid. Status: Acute
[2017-08-03] MEDS: Oxycodone/Acetaminophen 5/325 mg Tab PO PRN (15:31)
[2017-08-03] MEDS ORDERED: Albuterol-Ipratrop 3 mg / 0.5 (3 ml) UD INH PRN (17:43)
--- NOTE | 2017-08-04 00:29 | HP ---
HISTORY OF PRESENT ILLNESS: A 52-year-old female with a history of congestive heart failure, admitted to the hospital with complaint of swelling of lower extremity, shortness of breath. The patient came to the ER for admission. The patient does not smoke or drink. The patient has known history of congestive heart failure. PHYSICAL EXAMINATION: GENERAL: The patient is awake, alert, oriented, short of breath. VITAL SIGNS: Temperature 98 and pulse 90. HEENT: Within normal limits. NECK: Supple. CHEST: Symmetrical. HEART: Regular. ABDOMEN: Soft. EXTREMITIES: No edema. IMPRESSION: The patient suffers from congestive heart failure. The patient will supportive care on 08/03/2017. Lloyd Brown MD
[2017-08-04] MEDS: Oxycodone/Acetaminophen 5/325 mg Tab PO PRN (06:20)
[2017-08-04 07:20] LABS: BASO # 0.1 K/uL (0.0-0.2); EOS # 0.3 K/uL (0.0-0.7); EOS % 4.9 % (0.0-4.0); HEMATOCRIT 37.1 % (34.0-47.0); LYMPH # 1.5 K/uL (1.0-4.3); LYMPH % 26.6 % (20.0-40.0); MEAN CELL VOLUME 100.9 fL (81.0-99.0); MEAN CORPUSCULAR HEMOGLOBIN 33.8 pg (27.0-31.0); MEAN CORPUSCULAR HGB CONC 33.5 g/dL (33.0-37.0); MEAN PLATELET VOLUME 10.6 fL (7.2-11.7); MONO # 0.5 K/uL (0.0-0.8); MONO % 9.3 % (0.0-10.0); RED CELL DISTRIBUTION WIDTH 14.6 % (11.5-14.5); WHITE BLOOD COUNT 5.6 K/uL (4.8-10.8)
[2017-08-04 07:54] LABS: CHLORIDE 97 mmol/L (98-107); SODIUM 143 mmol/L (132-148)
[2017-08-04 07:56] LABS: AST/SGOT 35 U/L (14-36); BILIRUBIN,TOTAL 0.9 mg/dL (0.2-1.3); CARBON DIOXIDE 33 mmol/L (22-30); GFR AFRICAN-AMERICAN > 60
[2017-08-04 07:57] LABS: ALB/GLOB RATIO 1.2 (1.0-2.1); ALKALINE PHOSPHATASE 60 U/L (38-126); ALT/SGPT 51 U/L (9-52); BLOOD UREA NITROGEN 20 mg/dL (7-17); CALCIUM 8.4 mg/dl (8.6-10.4); GLUCOSE,RANDOM 83 mg/dL (65-105); TOTAL PROTEIN 6.1 g/dL (6.3-8.3)
--- NOTE | 2017-08-04 09:14 | CP.PCM.PN ---
Subjective - Date & Time of Evaluation Date of Evaluation: 08/04/17 Time of Evaluation: 09:00 - Subjective Subjective: Dr. Brown note: Patient seen and examined in room. She is still complaining of some difficulty breathing but says she is breathing better since yesterday. She is complaining of some pain in her legs from the swelling which has decreased since yesterday. Objective - Vital Signs/Intake and Output Vital Signs (last 24 hours): Temp Pulse Resp BP Pulse Ox 98.1 F 75 20 120/77 100 08/03/17 23:40 08/04/17 00:00 08/03/17 23:40 08/03/17 23:40 08/03/17 23:40 Intake and Output: 08/04/17 08/04/17 06:59 18:59 Intake Total 510 Balance 510 - Medications Medications: Current Medications Albuterol/Ipratropium (Duoneb 3 Mg/0.5 Mg (3 Ml) Ud) 3 ml INH RQ6 PRN PRN Reason: Wheezing Aspirin (Ecotrin) 81 mg PO DAILY [facility] Last Admin: 08/03/17 09:40 Dose: 81 mg Carvedilol (Coreg) 12.5 mg PO BID [facility] Last Admin: 08/03/17 18:00 Dose: 12.5 mg Enoxaparin Sodium (Lovenox) 40 mg SC DAILY [facility] Last Admin: 08/03/17 09:47 Dose: 40 mg Famotidine (Pepcid) 20 mg PO BID [facility] Last Admin: 08/03/17 18:01 Dose: 20 mg Ferrous Sulfate (Feosol) 325 mg PO DAILY [facility] Last Admin: 08/03/17 18:00 Dose: 325 mg Furosemide (Lasix) 40 mg IVP BID [facility] Last Admin: 08/03/17 18:01 Dose: 40 mg Influenza Virus Vaccine (Afluria) 45 mcg IM .ONCE ONE Stop: 08/04/17 10:01 Oxycodone/Acetaminophen (Percocet 5/325 Mg Tab) 1 tab PO Q4H PRN PRN Reason: Pain, moderate (4-7) Stop: 08/05/17 21:26 Last Admin: 08/04/17 06:20 Dose: 1 tab Spironolactone (Aldactone) 25 mg PO DAILY [facility] Last Admin: 08/03/17 09:39 Dose: 25 mg - Labs Labs: 08/04/17 07:07 08/04/17 07:07 PT 13.5 SECONDS (9.7-12.2) H 08/02/17 14:57 INR 1.2 08/02/17 14:57 APTT 30 SECONDS (21-34) 08/02/17 14:57 - Constitutional Appears: Non-toxic, No Acute Distress - Eye Exam Eye Exam: Normal appearance - ENT Exam ENT Exam: Normal Exam - Respiratory Exam Respiratory Exam: Rales. absent: Clear to Ausculation Bilateral, Rhonchi, Wheezes - Cardiovascular Exam Cardiovascular Exam: REGULAR RHYTHM, RRR, +S1, +S2. absent: Gallop, Rubs - GI/Abdominal Exam GI & Abdominal Exam: Soft, Normal Bowel Sounds. absent: Tenderness - Extremities Exam Extremities Exam: Pedal Edema (trace). absent: Calf Tenderness, Tenderness - Back Exam Back Exam: NORMAL INSPECTION - Neurological Exam Neurological Exam: Alert - Psychiatric Exam Psychiatric exam: Normal Affect, Normal Mood - Skin Skin Exam: Normal Color Assessment and Plan - Assessment and Plan (Free Text) Assessment: 1) Chest pain Assessment & Plan: 08/04: Cardiology evaluation, help appreciated. CT scan of the chest is negative for PE. Cardiac enzymes are negative as well. Status: Acute (2) Congestive heart failure Assessment & Plan: 08/04: Cardiology wants one more day of IV lasix and will most likely discharge tomorrow with PO lasix. Previous note: Dr. Montana is consulted for cardiology Aldactone 25mg daily Lasix 40mg IV bid I & O continous daily weight measurement Status: Acute (3) HTN (hypertension) Assessment & Plan: Coreg 12.5 mg bid, Status: Acute (4) Elevated LFTs Assessment & Plan: follow up hepatitis panel. Status: Acute (5) Asthma Assessment & Plan: duoneb 3ml q6h prn Status: Acute (6) Prophylactic measure Assessment & Plan: Lovenox 40mg sc, scds contraindicated due to lower extremity swelling, pepcid 20mg bid. All management per Dr. Brown
[2017-08-04] MEDS ORDERED: Influenza Virus Vaccine (Afluria Inactive dont use ) IM ONE (10:00)
[2017-08-04] MEDS: Enoxaparin 40 mg Syringe SC SCH (10:14)
--- NOTE | 2017-08-04 12:01 | CP.PCM.CON ---
History of Present Illness - History of Present Illness History of Present Illness: 52 year old female with systolic CHF. She is reporting several days of worsening dyspnea. Worse with exertion. Improves with rest and now diuresis. This occurs in the setting of severe non ischemic cardiomyopathy. Review of Systems - Review of Systems All systems: reviewed and no additional remarkable complaints except Past Patient History - Infectious Disease Hx of Infectious Diseases: None - Past Medical History & Family History Past Medical History?: Yes - Past Social History Smoking Status: Former Smoker - CARDIAC Hx Congestive Heart Failure: Yes Hx Hypertension: Yes Hx Pacemaker: Yes (AICD) - PULMONARY Hx Asthma: Yes - NEUROLOGICAL Hx Seizures: No - HEENT Hx HEENT Problems: No - RENAL Hx Chronic Kidney Disease: No - ENDOCRINE/METABOLIC Hx Endocrine Disorders: No - HEMATOLOGICAL/ONCOLOGICAL Hx Human Immunodeficiency Virus (HIV): No - INTEGUMENTARY Hx Dermatological Problems: No - MUSCULOSKELETAL/RHEUMATOLOGICAL Hx Falls: No - GASTROINTESTINAL Hx Gastrointestinal Disorders: Yes Hx Gastroesophageal Reflux: Yes - GENITOURINARY/GYNECOLOGICAL Hx Sexually Transmitted Disorders: No - PSYCHIATRIC Hx Depression: Yes Hx Substance Use: Yes (cocaine abuse) - SURGICAL HISTORY Hx Surgeries: Yes Hx Gastric Bypass Surgery: Yes (10yrs ago) Hx Musculoskeletal Surgery: Yes (Right Carpal tunnel) Other/Comment: Left breast cyst excision - ANESTHESIA Hx Anesthesia: Yes Hx Anesthesia Reactions: No Hx Malignant Hyperthermia: No Has any member of the family had a problem w/ anesthesia?: No Meds Allergies/Adverse Reactions: Allergies Allergy/AdvReac Type Severity Reaction Status Date / Time No Known Allergies Allergy Verified 08/02/17 14:00 - Medications Medications: Current Medications Albuterol/Ipratropium (Duoneb 3 Mg/0.5 Mg (3 Ml) Ud) 3 ml INH RQ6 PRN PRN Reason: Wheezing Aspirin (Ecotrin) 81 mg PO DAILY [facility] Last Admin: 08/04/17 10:14 Dose: 81 mg Carvedilol (Coreg) 12.5 mg PO BID [facility] Last Admin: 08/04/17 10:15 Dose: 12.5 mg Enoxaparin Sodium (Lovenox) 40 mg SC DAILY [facility] Last Admin: 08/04/17 10:14 Dose: 40 mg Famotidine (Pepcid) 20 mg PO BID [facility] Last Admin: 08/04/17 10:14 Dose: 20 mg Ferrous Sulfate (Feosol) 325 mg PO DAILY [facility] Last Admin: 08/04/17 10:15 Dose: 325 mg Furosemide (Lasix) 40 mg IVP BID [facility] Last Admin: 08/04/17 10:16 Dose: 40 mg Oxycodone/Acetaminophen (Percocet 5/325 Mg Tab) 1 tab PO Q4H PRN PRN Reason: Pain, moderate (4-7) Stop: 08/05/17 21:26 Last Admin: 08/04/17 06:20 Dose: 1 tab Spironolactone (Aldactone) 25 mg PO DAILY [facility] Last Admin: 08/04/17 10:14 Dose: 25 mg Physical Exam - Constitutional Appears: Well, Non-toxic - Head Exam Head Exam: ATRAUMATIC, NORMAL INSPECTION - Eye Exam Eye Exam: PERRL. absent: Scleral icterus - ENT Exam ENT Exam: Mucous Membranes Moist, Normal External Ear Exam - Neck Exam Neck exam: Positive for: Lymphadenopathy. Negative for: Thyromegaly - Respiratory Exam Respiratory Exam: Clear to Auscultation Bilateral, NORMAL BREATHING PATTERN - Cardiovascular Exam Cardiovascular Exam: REGULAR RHYTHM, RRR, +S1, +S2. absent: JVD Additional comments: AICD - GI/Abdominal Exam GI & Abdominal Exam: Normal Bowel Sounds. absent: Organomegaly - Extremities Exam Extremities exam: Positive for: pedal edema. Negative for: calf tenderness - Neurological Exam Neurological exam: CN II-XII Intact, Oriented x3 - Psychiatric Exam Psychiatric exam: Normal Affect, Normal Mood Results - Vital Signs Recent Vital Signs: Last Vital Signs Temp 98.9 F 08/04/17 07:05 Pulse 98 H 08/04/17 07:05 Resp 18 08/04/17 07:05 BP 132/76 08/04/17 10:16 Pulse Ox 94 L 08/04/17 07:05 - Labs Result Diagrams: 08/04/17 07:07 08/04/17 07:07 Labs: Laboratory Results - last 24 hr 08/04/17 08/04/17 08/04/17 07:07 07:07 07:07 WBC 5.6 RBC 3.67 L Hgb 12.4 Hct 37.1 MCV 100.9 H MCH 33.8 H MCHC 33.5 RDW 14.6 H Plt Count 119 L MPV 10.6 Neut % (Auto) 58.2 Lymph % (Auto) 26.6 Guthrie % (Auto) 9.3 Eos % (Auto) 4.9 H Baso % (Auto) 1.0 Neut # 3.3 Lymph # 1.5 Guthrie # 0.5 Eos # 0.3 Baso # 0.1 Differential Comment Sodium 143 Potassium 4.0 Chloride 97 L Carbon Dioxide 33 H Anion Gap 17 BUN 20 H Creatinine 1.0 Est GFR ( Amer) > 60 Est GFR (Non-Af Amer) 58 Random Glucose 83 Calcium 8.4 L Total Bilirubin 0.9 AST 35 ALT 51 Alkaline Phosphatase 60 Total Protein 6.1 L Albumin 3.3 L Globulin 2.7 Albumin/Globulin Ratio 1.2 Hepatitis A IgM Ab Negative Hep Bs Antigen Negative Hep B Core IgM Ab Negative Hepatitis C Antibody Negative - EKG Data EKG Interpreted by: Myself EKG shows normal: Sinus rhythm - Imaging and Cardiology Chest x-ray Additional comment: No infiltrate or effusions Assessment & Plan - Assessment and Plan (Free Text) Assessment: 52 year old female with acute on chronic systolic CHF continue with diuresis Lasix 40mg IV BID x one more day , continue RAAS blockade, coreg if she is not using cocaine Metabolic alkalosis likely due to contraction; one more day of high dose IV diuretics then change to maintenance PO diuretic HTN is chronic and stable Proteinuria is chronic, continue RAAS blockade Polysubstance abuse now stable
--- NOTE | 2017-08-04 13:36 | CP.PCM.PN ---
Objective - Vital Signs/Intake and Output Vital Signs (last 24 hours): Temp Pulse Resp BP Pulse Ox 98.9 F 98 H 18 132/76 94 L 08/04/17 07:05 08/04/17 07:05 08/04/17 07:05 08/04/17 10:16 08/04/17 07:05 Intake and Output: 08/04/17 08/04/17 06:59 18:59 Intake Total 510 Balance 510 - Medications Medications: Current Medications Albuterol/Ipratropium (Duoneb 3 Mg/0.5 Mg (3 Ml) Ud) 3 ml INH RQ6 PRN PRN Reason: Wheezing Aspirin (Ecotrin) 81 mg PO DAILY [facility] Last Admin: 08/04/17 10:14 Dose: 81 mg Carvedilol (Coreg) 12.5 mg PO BID [facility] Last Admin: 08/04/17 10:15 Dose: 12.5 mg Enoxaparin Sodium (Lovenox) 40 mg SC DAILY [facility] Last Admin: 08/04/17 10:14 Dose: 40 mg Famotidine (Pepcid) 20 mg PO BID [facility] Last Admin: 08/04/17 10:14 Dose: 20 mg Ferrous Sulfate (Feosol) 325 mg PO DAILY [facility] Last Admin: 08/04/17 10:15 Dose: 325 mg Furosemide (Lasix) 40 mg IVP BID [facility] Last Admin: 08/04/17 10:16 Dose: 40 mg Oxycodone/Acetaminophen (Percocet 5/325 Mg Tab) 1 tab PO Q4H PRN PRN Reason: Pain, moderate (4-7) Stop: 08/05/17 21:26 Last Admin: 08/04/17 06:20 Dose: 1 tab Spironolactone (Aldactone) 25 mg PO DAILY [facility] Last Admin: 08/04/17 10:14 Dose: 25 mg - Labs Labs: 08/04/17 07:07 08/04/17 07:07 PT 13.5 SECONDS (9.7-12.2) H 08/02/17 14:57 INR 1.2 08/02/17 14:57 APTT 30 SECONDS (21-34) 08/02/17 14:57 Assessment and Plan (1) Chest pain Status: Acute (2) Congestive heart failure Status: Acute (3) HTN (hypertension) Status: Acute (4) Elevated LFTs Status: Acute (5) Asthma Status: Acute (6) Prophylactic measure Status: Acute
[2017-08-04 14:31] LABS: RBC URINE 1 /hpf (0-3); URINE BILIRUBIN NEGATIVE (NEGATIVE); URINE BLOOD 1+ (NEGATIVE); URINE COLOR Straw (YELLOW); URINE GLUCOSE (UA) NORMAL (Normal); URINE KETONE NEGATIVE (NEGATIVE); URINE LEUKOCYTE ESTERASE NEG Leu/uL (Negative); URINE PROTEIN NEGATIVE (NEGATIVE); URINE UROBILINOGEN NORMAL mg/dL (0.2-1.0)
[2017-08-05] MEDS: Oxycodone/Acetaminophen 5/325 mg Tab PO PRN (00:17)
[2017-08-05 01:48] VITALS: RESP 20
--- NOTE | 2017-08-05 09:41 | CP.PCM.PN ---
Subjective - Date & Time of Evaluation Date of Evaluation: 08/05/17 Time of Evaluation: 09:42 - Subjective Subjective: Pt seen and examined at bedside this AM; she has no acute complaints this morning and denies any fevers/chills, GONZALEZ, CP, SOB, abdominal pain, N/V/D, dysuria/freq/urg, or lower extremity pain swelling. Patient states her last echo was in march and she does not remember the results. Objective - Vital Signs/Intake and Output Vital Signs (last 24 hours): Temp Pulse Resp BP Pulse Ox 97.6 F 65 20 110/67 99 08/04/17 23:45 08/05/17 00:00 08/04/17 23:45 08/04/17 23:45 08/04/17 23:45 Intake and Output: 08/05/17 08/05/17 06:59 18:59 Intake Total 350 Balance 350 - Medications Medications: Current Medications Albuterol/Ipratropium (Duoneb 3 Mg/0.5 Mg (3 Ml) Ud) 3 ml INH RQ6 PRN PRN Reason: Wheezing Aspirin (Ecotrin) 81 mg PO DAILY [facility] Last Admin: 08/04/17 10:14 Dose: 81 mg Carvedilol (Coreg) 12.5 mg PO BID [facility] Last Admin: 08/04/17 18:09 Dose: 12.5 mg Enoxaparin Sodium (Lovenox) 40 mg SC DAILY [facility] Last Admin: 08/04/17 10:14 Dose: 40 mg Famotidine (Pepcid) 20 mg PO BID [facility] Last Admin: 08/04/17 18:09 Dose: 20 mg Ferrous Sulfate (Feosol) 325 mg PO DAILY [facility] Last Admin: 08/04/17 10:15 Dose: 325 mg Furosemide (Lasix) 40 mg IVP BID [facility] Last Admin: 08/04/17 18:09 Dose: 40 mg Oxycodone/Acetaminophen (Percocet 5/325 Mg Tab) 1 tab PO Q4H PRN PRN Reason: Pain, moderate (4-7) Stop: 08/05/17 21:26 Last Admin: 08/05/17 00:17 Dose: 1 tab Spironolactone (Aldactone) 25 mg PO DAILY [facility] Last Admin: 08/04/17 10:14 Dose: 25 mg - Labs Labs: 08/04/17 07:07 09/27/17 07:07 PT 13.5 SECONDS (9.7-12.2) H 08/02/17 14:57 INR 1.2 08/02/17 14:57 APTT 30 SECONDS (21-34) 08/02/17 14:57 - Constitutional Appears: Non-toxic - Head Exam Head Exam: ATRAUMATIC - Eye Exam Eye Exam: EOMI, Normal appearance - ENT Exam ENT Exam: Mucous Membranes Moist - Neck Exam Neck Exam: Full ROM. absent: Lymphadenopathy - Respiratory Exam Respiratory Exam: Clear to Ausculation Bilateral, NORMAL BREATHING PATTERN. absent: Rales, Rhonchi, Wheezes - Cardiovascular Exam Cardiovascular Exam: REGULAR RHYTHM - GI/Abdominal Exam GI & Abdominal Exam: Soft, Normal Bowel Sounds - Extremities Exam Extremities Exam: absent: Calf Tenderness - Back Exam Back Exam: NORMAL INSPECTION. absent: CVA tenderness (L), CVA tenderness (R) - Neurological Exam Neurological Exam: Alert, Awake, CN II-XII Intact, Oriented x3 - Psychiatric Exam Psychiatric exam: Normal Affect - Skin Skin Exam: Warm Assessment and Plan - Assessment and Plan (Free Text) Assessment: 52 yo F admitted for CHF exacerbation Chest pain;resolved 08/05: no chest pain 08/04: Cardiology evaluation, help appreciated. CT scan of the chest is negative for PE. Cardiac enzymes are negative as well. Congestive heart failure; chronic with systolic dysfunction last EF 35-40% 08/05: patient is stable for discharge 08/04: Cardiology wants one more day of IV lasix and will most likely discharge tomorrow with PO lasix. Previous note: Dr. Montana is consulted for cardiology Aldactone 25mg daily Lasix 40mg IV bid I & O continous daily weight measurement patient is told to continue with abstinence from cocaine HTN (hypertension) Coreg 12.5 mg bid, Aldactone daily Elevated LFTs follow up hepatitis panel. Asthma; stable duoneb 3ml q6h prn Sleep Apnea; chronic patient states she used to use a sleep apnea machine but stopped because she lost a lot of weight patient cannot lay flat with sleep recommended to follow up as outpatient for CPAP Prophylactic measure Assessment & Plan: Lovenox 40mg sc, scds contraindicated due to lower extremity swelling, pepcid 20mg bid. patient is stable for discharge as per Dr. Kevin Pak PGY2 Note for Dr. Brown
[2017-08-05] MEDS: Enoxaparin 40 mg Syringe SC SCH (10:04)
[2017-08-05 10:05] VITALS: BP 127/86
[2017-08-05 12:17] VITALS: TEMP 98.1; O2SAT 96
[2017-08-05 15:33] VITALS: PULSE 75
--- NOTE | 2017-08-06 08:41 | PCM.HF ---
Heart Failure Core Measure - Heart Failure Ejection Fraction: Less Than 40 % Left Ventricular Function to be assessed after discharge: Yes JORGE Inhibitor Prescribed: Yes Beta-Ghanshyam Prescribed: Carvedilol Angiotensin II Receptor Ghanshyam Prescribed: No Contraindication/Reason for not providing: on JORGE AnticoagulationTherapy for Atrial Fibrillation/Atrialflutter: No Contraindication/Reason for not providing: doesnt need Aldosterone Antagonist Prescribed: Yes Contraindication/Reason for not providing: on Hydralazine Nitrate Prescribed: No Contraindication/Reason for not providing: doesnt need Implantable Cardioverter Defibrillator Therapy: No Contraindication/Reason for not providing: doesnt need Cardiac Resynchronization Therapy Prescribed: No Contraindication/Reason for not providing: doesnt need - Follow up Will be discharged to: Home Follow Up Date (must be within 7 days from discharge): 08/10/17 Follow Up Time: 09:00
== END 2017-08-05 14:48 | disposition home or self-care (01) | DRG 293 ==
LOC: C.ER 13:48 → C.9E 17:54 → C.9I 20:34 → C.6T 08-03 13:41
PROVIDERS: ADMIT Internal Medicine Pulmonary Disease; ATTEND Internal Medicine Pulmonary Disease
DX: I11.0 Hypertensive heart disease with heart failure (principal); I42.9 Cardiomyopathy, unspecified; G47.30 Sleep apnea, unspecified; I50.23 Acute on chronic systolic (congestive) heart failure; I25.10 Atherosclerotic heart disease of native coronary artery without angina pectoris; J45.909 Unspecified asthma, uncomplicated; Z87.891 Personal history of nicotine dependence; Z95.0 Presence of cardiac pacemaker; R80.9 Proteinuria, unspecified

== ENCOUNTER 2017-11-04 11:05 | Emergency (ER) | payer BC ==
[2017-11-04 11:05] VITALS: BMI 29.1
[2017-11-04 11:19] VITALS: O2SAT 98
[2017-11-04 12:39] LABS: BASO % 0.7 % (0.0-2.0); EOS # 0.1 K/uL (0.0-0.7); EOS % 2.6 % (0.0-4.0); HEMATOCRIT 37.8 % (34.0-47.0); LYMPH # 1.2 K/uL (1.0-4.3); LYMPH % 24.5 % (20.0-40.0); MEAN CORPUSCULAR HEMOGLOBIN 33.1 pg (27.0-31.0); MEAN CORPUSCULAR HGB CONC 34.8 g/dL (33.0-37.0); MEAN PLATELET VOLUME 9.6 fL (7.2-11.7); MONO # 0.6 K/uL (0.0-0.8); MONO % 12.3 % (0.0-10.0); RED CELL DISTRIBUTION WIDTH 12.8 % (11.5-14.5)
[2017-11-04 12:41] LABS: MEAN CELL VOLUME 95.2 fL (81.0-99.0)
[2017-11-04 13:09] LABS: BLOOD UREA NITROGEN 33 mg/dL (7-17); CALCIUM 8.7 mg/dl (8.6-10.4); CARBON DIOXIDE 36 mmol/L (22-30); CHLORIDE 95 mmol/L (98-107); GFR AFRICAN-AMERICAN > 60; GLUCOSE,RANDOM 95 mg/dL (65-105); POTASSIUM 3.3 mmol/L (3.6-5.2); SODIUM 135 mmol/L (132-148); TOTAL PROTEIN 7.5 g/dL (6.3-8.3)
[2017-11-04 13:10] LABS: ALB/GLOB RATIO 1.1 (1.0-2.1); ALKALINE PHOSPHATASE 61 U/L (38-126); ALT/SGPT 39 U/L (9-52); AST/SGOT 46 U/L (14-36); BILIRUBIN,TOTAL 0.6 mg/dL (0.2-1.3)
--- NOTE | 2017-11-04 13:11 | C.PDOC ---
History Of Present Illness 52 y/o female hx cervical disc herniation confirmed by MRI several years ago, presents to the ED from her doctor's office c/o left arm and left hand pain sharp in nature. The patient denies chest pain, SOB, fever, and cough. Chief Complaint (Nursing): Upper Extremity Problem/Injury History Per: Patient Onset/Duration Of Symptoms: Hrs Current Symptoms Are (Timing): Still Present Quality: Sharp, "Pain" Additional History Per: Patient Past Medical History Reviewed: Historical Data, Nursing Documentation, Vital Signs Vital Signs: Last Vital Signs Temp 98.6 F 11/04/17 14:01 Pulse 57 L 11/04/17 14:01 Resp 18 11/04/17 14:01 BP 124/73 11/04/17 14:01 Pulse Ox 98 11/04/17 14:01 - Medical History PMH: Asthma, Back Problems, CHF, Depression, HTN Denies: Diabetes, Hepatitis, HIV, Chronic Kidney Disease, Seizures, Sexually Transmitted Disease Surgical History: Pacemaker (AICD) - [facility] Procedures FLUOROSCOPY OF LEFT HEART USING LOW OSMOLAR CONTRAST (03/09/16) LOCAL EXCIS BREAST LES (02/16/03) MEASURE OF CARDIAC SAMPL & PRESSURE, L HEART, PERC APPROACH (03/09/16) Family History: States: No Known Family Hx - Social History Hx Tobacco Use: Yes Hx Alcohol Use: No Hx Substance Use: Yes (cocaine abuse) - Immunization History Hx Tetanus Toxoid Vaccination: No Hx Influenza Vaccination: No Hx Pneumococcal Vaccination: Yes Review Of Systems Except As Marked, All Systems Reviewed And Found Negative. Constitutional: Negative for: Fever, Chills Cardiovascular: Negative for: Chest Pain Respiratory: Negative for: Cough, Shortness of Breath Musculoskeletal: Positive for: Arm Pain (left ), Hand Pain (left ) Physical Exam - Physical Exam Appears: Non-toxic, No Acute Distress Skin: Warm, Dry Head: Atraumatic Eye(s): bilateral: PERRL Oral Mucosa: Moist Neck: Supple Chest: Symmetrical Cardiovascular: Rhythm Regular Respiratory: Normal Breath Sounds Gastrointestinal/Abdominal: Soft Extremity: Capillary Refill (2<sec.), Other (left hand decrease sensory sensation along the median nerve distribution ) Neurological/Psych: Oriented x3, Normal Speech, Normal Cognition Gait: Steady ED Course And Treatment - Laboratory Results Result Diagrams: 11/04/17 12:19 12/28/17 12:19 ECG Rhythm: Sinus Rhythm (59 bpm with left atrial enlargement) O2 Sat by Pulse Oximetry: 98 (RA) Progress Note: Plan- EKG, IV fluids,and Blood work. Administered to the patient Toradol and Flexeril Disposition - Disposition Referrals: Bonnie Amador MD [Staff Provider] - Disposition: HOME/ ROUTINE Disposition Time: 13:10 Condition: IMPROVED Additional Instructions: Thank you for letting us take care of you today. The emergency medical care you received today was directed at your acute symptoms. If you were prescribed any medication, please fill it and take as directed. It may take several days for your symptoms to resolve. Return to the Emergency Department if your symptoms worsen, do not improve, or if you have any other problems. Please contact your doctor or call one of the physicians/clinics you have been referred to that are listed on the Patient Visit Information form that is included in your discharge packet. Bring any paperwork you were given at discharge with you along with any medications you are taking to your follow up visit. Our treatment cannot replace ongoing medical care by a primary care provider (PCP) outside of the emergency department. Thank you for allowing the [facility] team to be part of your care today. Follow up with Dr. Amador in 2-3 days for outpatient management and further evaluation. Prescriptions: Cyclobenzaprine [Cyclobenzaprine HCl] 10 mg PO Q8 PRN #20 tab PRN Reason: Muscle Spasm Ibuprofen [Motrin] 600 mg PO Q6 PRN #20 tab PRN Reason: Pain, Moderate (4-7) Instructions: Paresthesia (ED) Forms: [employer] (Vietnamese) - Clinical Impression Clinical Impression: Arm paresthesia, left - Scribe Statement The provider has reviewed the documentation as recorded by the Scribe Rolanda Sandoval
[2017-11-04 14:02] VITALS: BP 124/73; PULSE 57; RESP 18; TEMP 98.6
== END 2017-11-04 14:19 | disposition home or self-care (01) ==
LOC: C.ER 11:05
DX: R20.2 Paresthesia of skin (principal); I10 Essential (primary) hypertension; I50.9 Heart failure, unspecified; Z87.891 Personal history of nicotine dependence
CPT/HCPCS: 80053; 84484; 85025; 96374; 99284; J1885

== ENCOUNTER 2018-10-07 11:37 | Observation (INO) | payer BC ==
[2018-10-07 11:44] VITALS: BMI 30.8
[2018-10-07] MEDS ORDERED: Sodium Chloride 0.9% 500 ML IV ONE ×4 (12:08→14:34)
--- NOTE | 2018-10-07 12:31 | C.PDOC ---
History Of Present Illness 53yo female, history of hypertension, CHF, comes to ER reporting generalized weakness, fatigue and decreased PO intake for the past 3 days. Patient also reports having black and tarry stool today. She has had mild shortness of breath with exertion as well. Otherwise, patient denies any chest pain, cough, fever, vomiting or diarrhea. Patient offers no additional medical complaints. PMD: Cherry Davila Time Seen by Provider: 10/07/18 12:06 Chief Complaint (Nursing): GI Problem History Per: Patient History/Exam Limitations: no limitations Onset/Duration Of Symptoms: Days Current Symptoms Are (Timing): Still Present Associated Symptoms: denies: Fever, Chills, Nausea Additional History Per: Patient Past Medical History Reviewed: Historical Data, Nursing Documentation, Vital Signs Vital Signs: Last Vital Signs Temp 98.1 F 10/07/18 11:45 Pulse 47 L 10/07/18 11:45 Resp 18 10/07/18 11:45 BP 87/64 L 10/07/18 11:45 Pulse Ox 100 10/07/18 11:45 - Medical History PMH: Asthma, Back Problems, CHF, Depression, HTN Denies: Diabetes, Hepatitis, HIV, Chronic Kidney Disease, Seizures, Sexually Transmitted Disease Surgical History: Pacemaker (AICD (Left chest wall)) - [facility] Procedures FLUOROSCOPY OF LEFT HEART USING LOW OSMOLAR CONTRAST (03/09/16) LOCAL EXCIS BREAST LES (02/16/03) MEASURE OF CARDIAC SAMPL & PRESSURE, L HEART, PERC APPROACH (03/09/16) Family History: States: No Known Family Hx - Social History Hx Tobacco Use: Yes Hx Alcohol Use: No Hx Substance Use: No (cocaine abuse) - Immunization History Hx Tetanus Toxoid Vaccination: No Hx Influenza Vaccination: Yes (2018) Hx Pneumococcal Vaccination: Yes Review Of Systems Constitutional: Positive for: Weakness, Malaise. Negative for: Fever, Chills Cardiovascular: Negative for: Chest Pain Respiratory: Positive for: SOB with Excertion Gastrointestinal: Positive for: Melena. Negative for: Vomiting, Diarrhea Physical Exam - Physical Exam Appears: Non-toxic Skin: Normal Color, Warm Head: Atraumatic, Normacephalic Eye(s): bilateral: Normal Inspection, PERRL, EOMI Neck: Supple Chest: Symmetrical Cardiovascular: Rhythm Regular Respiratory: Normal Breath Sounds Gastrointestinal/Abdominal: Soft, No Tenderness, Other (surgical scar above umbilicus) Rectal: Rectal Tone (normal), No Maroon Stool, Melena, No Blood Streaked Stool, No Hemorrhoids, No Mass, No Tenderness Back: Normal Inspection Extremity: Normal ROM, No Pedal Edema Neurological/Psych: Oriented x3 ED Course And Treatment - Laboratory Results Result Diagrams: 10/07/18 12:41 10/07/18 12:41 ECG: Interpreted By Me, Viewed By Me ECG Rhythm: Sinus Bradycardia, V Paced (occasional) Interpretation Of ECG: No ST/T changes. Normal axis. O2 Sat by Pulse Oximetry: 100 (RA) Pulse Ox Interpretation: Normal Progress Note: Labs, EKG and Urinalysis ordered. Patient given IV fluids. Occult stool test sent. Stool occult negative. Disposition - Disposition Forms: [facility] ([place]) - Scribe Statement The provider has reviewed the documentation as recorded by the Jarek Monsalve Provider Attestation: All medical record entries made by the Suzanibyaritza were at my direction and personally dictated by me. I have reviewed the chart and agree that the record accurately reflects my personal performance of the history, physical exam, medical decision making, and the department course for this patient. I have also personally directed, reviewed, and agree with the discharge instructions and disposition.
[2018-10-07 12:49] LABS: BASO % 0.5 % (0.0-2.0); EOS # 0.2 K/uL (0.0-0.7); EOS % 2.9 % (0.0-4.0); HEMOGLOBIN 12.6 g/dL (11.0-16.0); LYMPH # 1.3 K/uL (1.0-4.3); MEAN CELL VOLUME 94.5 fL (81.0-99.0); MEAN CORPUSCULAR HEMOGLOBIN 32.7 pg (27.0-31.0); MEAN CORPUSCULAR HGB CONC 34.6 g/dL (33.0-37.0); MEAN PLATELET VOLUME 9.8 fL (7.2-11.7); MONO # 0.6 K/uL (0.0-0.8); MONO % 8.6 % (0.0-10.0); NEUT # 5.2 K/uL (1.8-7.0); RBC 3.86 Mil/uL (3.80-5.20); RED CELL DISTRIBUTION WIDTH 13.1 % (11.5-14.5); WHITE BLOOD COUNT 7.5 K/uL (4.8-10.8)
[2018-10-07 12:58] LABS: SQUAMOUS EPITHIAL 4 /hpf (0-5); URINE BACTERIA RARE (<OCC); URINE BILIRUBIN NEGATIVE (NEGATIVE); URINE BLOOD NEGATIVE (NEGATIVE); URINE CLARITY Clear (Clear); URINE COLOR Straw (YELLOW); URINE GLUCOSE (UA) NORMAL (Normal); URINE LEUKOCYTE ESTERASE NEG Leu/uL (Negative); URINE PROTEIN NEGATIVE (NEGATIVE); URINE UROBILINOGEN NORMAL mg/dL (0.2-1.0)
[2018-10-07 13:01] LABS: INR 1.2
[2018-10-07 13:02] LABS: ALB/GLOB RATIO 1.2 (1.0-2.1); ALBUMIN 4.3 g/dL (3.5-5.0); CALCIUM 9.1 mg/dl (8.6-10.4)
--- NOTE | 2018-10-07 13:58 | RAD ---
Date of service: 10/07/2018 HISTORY: WEAKNESS COMPARISON: Comparison chest 08/02/2017. FINDINGS: LUNGS: No active pulmonary disease. PLEURA: No significant pleural effusion identified, no pneumothorax apparent. CARDIOVASCULAR: No discernible aortic atherosclerotic calcification present. Cardiomegaly although the heart appears less enlarged compared the prior exam. No change single lead pacemaker/defibrillator.. OSSEOUS STRUCTURES: No significant abnormalities. VISUALIZED UPPER ABDOMEN: Normal. OTHER FINDINGS: None. IMPRESSION: No active disease.
[2018-10-07 14:18] VITALS: RESP 20
[2018-10-07] MEDS: Albuterol-Ipratrop 3 mg / 0.5 (3 ml) UD INH SCH (21:37)
[2018-10-07] MEDS ORDERED: Promethazine 6.25 MG/5 ML CUP PO PRN (22:44)
--- NOTE | 2018-10-07 22:44 | CP.PCM.HP ---
History of Present Illness - History of Present Illness History of Present Illness: Chief complaint: Dark stools HPI: Patient is a 53-year-old female with multiple medical history came to the emergency room with dark stools. Patient recently 3 days ago started having cough, sore throat, increasing wheezing. I prescribed the patient for Zithromax. Patient took 2 tablets yesterday. Last night the patient had an episode of abdominal pain, she took Pepto-Bismol. This morning she started having weakness tiredness fatigue. And also started having dark sticky stools. Patient called me and I advised the patient to go to the emergency room because of the suspected GI bleed. In the emergency room patient was evaluated. Blood pressure was on the low side. IV fluid received 1 L. Stool guaiac was negative but the Black stools noted. Now patient is feeling well. She has no chest pain. Also feeling somewhat better at this time. Weakness is less. Cough still noted. Currently patient is taking Lasix 40 mg twice a day. See the cherry dipper to 3 months ago. No chest pain. Episodic shortness of breath present. No cough. Using oxygen. Recently seen by cherry dipper. Recent echocardiogram showing evidence of Ejection fraction 50% the History : 52-year-old female with history of congestive heart failure, hypertension, history of asthma, and also home oxygen at night. Patient developed heart failure recently. Nonischemic cardiomyopathy, on maintenance medications. Patient had angiogram in 2016 ejection fraction was 15%, normal coronaries at the time Past medical history: Congestive heart failure, nonischemic systolic heart failure. Hypertension. Bronchial asthma. On home O2. Past surgical history: History of defibrillator, in [facility]. History of gastric bypass surgery at the age of 33. Arthroscopy. . History of carpal tunnel release. Family history: Father with history of arthritis, mother with dementia. 2 siblings. Social history: Nonsmoker, nonalcoholic drinks 2 cups of coffee daily no exercise currently. But she is to go gym. Not working now. Current medications: Lasix 40 mg twice a day. Aspirin 81 mg daily Coreg 6.25 twice a day Pantoprazole 40 daily Multivitamin Plavix 75 daily Gabapentin 300 mg twice a day Cozaar 12.5 mg daily Metalazone 2.5 mg every other day Review of systems: Denies any headache, sinus symptoms noted, denies any chest pain, shortness of breath on and off, cough noted. History of gastric bypass surgery. Noted GI symptoms, but complaining of bilateral leg swelling. Patient was being seen by multiple specialists, including cherry dipper, arthritis specialist, and SAP CONSULTANT. On examination: HEENT PERRLA, neck supple No thyromegaly was noted and no cervical adenopathy noted Patient has a mild redness in the back of the throat. Chest good air entry bilaterally. Regular heart sound. 1 plus edema noted [employer] alert awake oriented x3 no functional neurological deficit. Patient's labs reviewed Elevated creatinine level noted. Blood pressures on the low side. Patient's labs reviewed he Creatinine is 1.44. Elevated bun Otherwise normal labs noted. Assessment and recommendation: 53-year-old female with history of hypertension, systolic heart failure, cardiomyopathy, and history of asthma, on home O2. Admitted with rectal bleeding. But stool guaiac is negative. Most likely related to Pepto-Bismol. We will monitor the H&H tomorrow. Again stool guaiac tomorrow. GI evaluation. Robitussin cough medicine pain Will follow the patient. Present on Admission - Present on Admission Any Indicators Present on Admission: No History of DVT/PE: No History of Uncontrolled Diabetes: No Urinary Catheter: No Decubitus Ulcer Present: No Past Patient History - Infectious Disease Hx of Infectious Diseases: None - Past Medical History & Family History Past Medical History?: Yes - Past Social History Smoking Status: Former Smoker - CARDIAC Hx Congestive Heart Failure: Yes Hx Hypertension: Yes Hx Pacemaker: Yes (AICD (Left chest wall)) - PULMONARY Hx Asthma: Yes - NEUROLOGICAL Hx Seizures: No - HEENT Hx HEENT Problems: No - RENAL Hx Chronic Kidney Disease: No - ENDOCRINE/METABOLIC Hx Endocrine Disorders: No - HEMATOLOGICAL/ONCOLOGICAL Hx Human Immunodeficiency Virus (HIV): No - INTEGUMENTARY Hx Dermatological Problems: No - MUSCULOSKELETAL/RHEUMATOLOGICAL Hx Falls: No - GASTROINTESTINAL Hx Gastrointestinal Disorders: Yes Hx Gastroesophageal Reflux: Yes - GENITOURINARY/GYNECOLOGICAL Hx Sexually Transmitted Disorders: No - PSYCHIATRIC Hx Depression: Yes Hx Substance Use: No (cocaine abuse) - SURGICAL HISTORY Hx Surgeries: Yes Hx Gastric Bypass Surgery: Yes (10yrs ago) Hx Musculoskeletal Surgery: Yes (Right Carpal tunnel) Other/Comment: Left breast cyst excision - ANESTHESIA Hx Anesthesia: Yes Hx Anesthesia Reactions: No Hx Malignant Hyperthermia: No Meds Allergies/Adverse Reactions: Allergies Allergy/AdvReac Type Severity Reaction Status Date / Time No Known Allergies Allergy Verified 10/07/18 11:44 Results - Vital Signs Recent Vital Signs: Last Vital Signs Temp 98.0 F 10/07/18 16:05 Pulse 51 L 10/07/18 16:05 Resp 20 10/07/18 16:05 BP 105/68 10/07/18 16:05 Pulse Ox 99 10/07/18 16:05 - Labs Result Diagrams: 10/07/18 12:41 10/07/18 12:41 Labs: Laboratory Results - last 24 hr 10/07/18 10/07/18 10/07/18 12:41 12:41 12:41 WBC 7.5 RBC 3.86 Hgb 12.6 Hct 36.5 MCV 94.5 MCH 32.7 H MCHC 34.6 RDW 13.1 Plt Count 191 MPV 9.8 Neut % (Auto) 70.0 Lymph % (Auto) 18.0 L [place] % (Auto) 8.6 Eos % (Auto) 2.9 Baso % (Auto) 0.5 Neut # (Auto) 5.2 Lymph # (Auto) 1.3 [place] # (Auto) 0.6 Eos # (Auto) 0.2 Baso # (Auto) 0.0 PT 13.0 H INR 1.2 APTT 37 H Sodium Potassium Chloride Carbon Dioxide Anion Gap BUN Creatinine Est GFR ( Amer) Est GFR (Non-Af Amer) Random Glucose Calcium Total Bilirubin AST ALT Alkaline Phosphatase Total Protein Albumin Globulin Albumin/Globulin Ratio Urine Color Straw Urine Clarity Clear Urine pH 6.0 Ur Specific [place] 1.006 Urine Protein Negative Urine Glucose (UA) Normal Urine Ketones Negative Urine Blood Negative Urine Nitrate Negative Urine Bilirubin Negative Urine Urobilinogen Normal Ur Leukocyte Esterase Neg Urine RBC (Auto) 2 Ur Squamous Epith Cells 4 Urine Bacteria Rare Stool Occult Blood Blood Type Antibody Screen 10/07/18 10/07/18 10/07/18 12:41 12:41 13:10 WBC RBC Hgb Hct MCV MCH MCHC RDW Plt Count MPV Neut % (Auto) Lymph % (Auto) [place] % (Auto) Eos % (Auto) Baso % (Auto) Neut # (Auto) Lymph # (Auto) [place] # (Auto) Eos # (Auto) Baso # (Auto) PT INR APTT Sodium 139 Potassium 3.6 Chloride 98 Carbon Dioxide 32 H Anion Gap 13 BUN 27 H Creatinine 1.5 H Est GFR ( Amer) 44 Est GFR (Non-Af Amer) 36 Random Glucose 107 H Calcium 9.1 Total Bilirubin 0.5 AST 29 ALT 32 Alkaline Phosphatase 70 Total Protein 7.7 Albumin 4.3 Globulin 3.4 Albumin/Globulin Ratio 1.2 Urine Color Urine Clarity Urine pH Ur Specific [place] Urine Protein Urine Glucose (UA) Urine Ketones Urine Blood Urine Nitrate Urine Bilirubin Urine Urobilinogen Ur Leukocyte Esterase Urine RBC (Auto) Ur Squamous Epith Cells Urine Bacteria Stool Occult Blood Negative Blood Type A POSITIVE Antibody Screen Negative
[2018-10-08 00:04] VITALS: O2SAT 100
[2018-10-08] MEDS: Albuterol-Ipratrop 3 mg / 0.5 (3 ml) UD INH SCH ×2 (01:45→08:29)
[2018-10-08 07:29] VITALS: TEMP 97.7
[2018-10-08 07:30] LABS: BASO # 0.1 K/uL (0.0-0.2); BASO % 0.9 % (0.0-2.0); EOS # 0.4 K/uL (0.0-0.7); EOS % 5.6 % (0.0-4.0); HEMOGLOBIN 11.8 g/dL (11.0-16.0); LYMPH # 1.7 K/uL (1.0-4.3); LYMPH % 24.8 % (20.0-40.0); MEAN CELL VOLUME 94.6 fL (81.0-99.0); MEAN CORPUSCULAR HEMOGLOBIN 32.3 pg (27.0-31.0); MEAN CORPUSCULAR HGB CONC 34.1 g/dL (33.0-37.0); MEAN PLATELET VOLUME 10.2 fL (7.2-11.7); MONO # 0.7 K/uL (0.0-0.8); MONO % 9.7 % (0.0-10.0); RBC 3.66 Mil/uL (3.80-5.20); RED CELL DISTRIBUTION WIDTH 13.3 % (11.5-14.5); WHITE BLOOD COUNT 6.8 K/uL (4.8-10.8)
[2018-10-08 07:41] LABS: ALB/GLOB RATIO 1.2 (1.0-2.1); ALBUMIN 3.8 g/dL (3.5-5.0); CALCIUM 8.6 mg/dl (8.6-10.4)
[2018-10-08] MEDS ORDERED: Influenza Virus Vaccine 45 mcg/0.5 ml Syr (36 months - 7 yrs) IM ONE (08:33)
[2018-10-08] MEDS ORDERED: Pneumococcal 23-Valent Vaccine IM ONE (08:33)
--- NOTE | 2018-10-08 09:25 | CP.PCM.CON ---
History of Present Illness - History of Present Illness History of Present Illness: CC: black stool, R/O GI bleed HPI: GI consult requested for possible GI bleed. Patient had URI symptoms, weakness, fatigue, dyspnea, cough several days ago. She was instructed to try Mucinex DM and Robitussin but when symptoms weren't relieved she was started on Zithromax, then developed abdominal discomfort for which she took Pepto Bismol and then saw black stools. Stool OB is negative, and Hgb levels are at baseline without drop. Abdominal pain now improved. She thinks she last had Colonoscopy 4 years ago. Pt has severe non ischemic cardiomyopathy and CHF, with EF 15%. Review of Systems - EENT Eyes: absent: Change in Vision - Cardiovascular Cardiovascular: absent: Chest Pain - Respiratory Respiratory: Cough, Dyspnea. absent: Hemoptysis - Gastrointestinal Gastrointestinal: Abdominal Pain. absent: Change in Stool Character, Constipation, Diarrhea - Genitourinary Genitourinary: absent: Difficulty Urinating Past Patient History - Infectious Disease Hx of Infectious Diseases: None - Past Medical History & Family History Past Medical History?: Yes - Past Social History Smoking Status: Former Smoker - CARDIAC Hx Congestive Heart Failure: Yes Hx Hypertension: Yes Hx Pacemaker: Yes (AICD (Left chest wall)) - PULMONARY Hx Asthma: Yes - NEUROLOGICAL Hx Seizures: No - HEENT Hx HEENT Problems: No - RENAL Hx Chronic Kidney Disease: No - ENDOCRINE/METABOLIC Hx Endocrine Disorders: No - HEMATOLOGICAL/ONCOLOGICAL Hx Human Immunodeficiency Virus (HIV): No - INTEGUMENTARY Hx Dermatological Problems: No - MUSCULOSKELETAL/RHEUMATOLOGICAL Hx Falls: No - GASTROINTESTINAL Hx Gastrointestinal Disorders: Yes Hx Gastroesophageal Reflux: Yes - GENITOURINARY/GYNECOLOGICAL Hx Sexually Transmitted Disorders: No - PSYCHIATRIC Hx Depression: Yes Hx Substance Use: No (cocaine abuse) - SURGICAL HISTORY Hx Surgeries: Yes Hx Gastric Bypass Surgery: Yes (10yrs ago) Hx Musculoskeletal Surgery: Yes (Right Carpal tunnel) Other/Comment: Left breast cyst excision - ANESTHESIA Hx Anesthesia: Yes Hx Anesthesia Reactions: No Hx Malignant Hyperthermia: No Meds Allergies/Adverse Reactions: Allergies Allergy/AdvReac Type Severity Reaction Status Date / Time No Known Allergies Allergy Verified 10/07/18 11:44 - Medications Medications: Current Medications Albuterol/Ipratropium (Duoneb 3 Mg/0.5 Mg (3 Ml) Ud) 3 ml INH RQ6 [facility] Last Admin: 10/08/18 08:29 Dose: 3 ml Azithromycin (Zithromax) 250 mg PO DAILY [facility]; Protocol Bisoprolol Fumarate (Zebeta) 2.5 mg PO DAILY [facility] Last Admin: 10/08/18 09:02 Dose: Not Given Furosemide (Lasix) 40 mg PO DAILY [facility] Last Admin: 10/08/18 09:03 Dose: Not Given Losartan Potassium (Cozaar) 25 mg PO DAILY [facility] Last Admin: 10/08/18 09:02 Dose: Not Given Metolazone (Zaroxolyn) 2.5 mg PO DAILY [facility] Last Admin: 10/08/18 09:02 Dose: Not Given Multivitamins (Hexavitamin) 1 tab PO DAILY [facility] Pantoprazole Sodium (Protonix Ec Tab) 40 mg PO DAILY [facility] Potassium Chloride (K-Dur 20 Meq Er Tab) 40 meq PO ONCE ONE Stop: 10/08/18 10:01 Promethazine HCl (Phenergan Syrup) 6.25 mg PO Q6 PRN PRN Reason: Cough Last Admin: 10/07/18 22:59 Dose: 6.25 mg Physical Exam - Constitutional Appears: Well, No Acute Distress - Head Exam Head Exam: ATRAUMATIC, NORMOCEPHALIC - Eye Exam Eye Exam: Normal appearance - ENT Exam ENT Exam: Normal Exam - Neck Exam Neck exam: Positive for: Normal Inspection - Respiratory Exam Respiratory Exam: Clear to Auscultation Bilateral - Cardiovascular Exam Cardiovascular Exam: REGULAR RHYTHM - GI/Abdominal Exam GI & Abdominal Exam: Normal Bowel Sounds, Soft. absent: Distended, Guarding, Mass, Tenderness - Rectal Exam Rectal Exam: Deferred - Extremities Exam Extremities exam: Positive for: normal inspection. Negative for: pedal edema Results - Vital Signs Recent Vital Signs: Last Vital Signs Temp 97.7 F 10/08/18 07:00 Pulse 60 10/08/18 07:00 Resp 20 10/08/18 07:00 BP 93/56 L 10/08/18 07:00 Pulse Ox 100 10/08/18 07:00 - Labs Result Diagrams: 10/08/18 07:08 10/08/18 07:08 Labs: Laboratory Results - last 24 hr 10/07/18 10/07/18 10/07/18 12:41 12:41 12:41 WBC 7.5 RBC 3.86 Hgb 12.6 Hct 36.5 MCV 94.5 MCH 32.7 H MCHC 34.6 RDW 13.1 Plt Count 191 MPV 9.8 Neut % (Auto) 70.0 Lymph % (Auto) 18.0 L [place] % (Auto) 8.6 Eos % (Auto) 2.9 Baso % (Auto) 0.5 Neut # (Auto) 5.2 Lymph # (Auto) 1.3 [place] # (Auto) 0.6 Eos # (Auto) 0.2 Baso # (Auto) 0.0 PT 13.0 H INR 1.2 APTT 37 H Sodium Potassium Chloride Carbon Dioxide Anion Gap BUN Creatinine Est GFR ( Amer) Est GFR (Non-Af Amer) Random Glucose Calcium Phosphorus Magnesium Total Bilirubin AST ALT Alkaline Phosphatase Total Protein Albumin Globulin Albumin/Globulin Ratio Urine Color Straw Urine Clarity Clear Urine pH 6.0 Ur Specific [place] 1.006 Urine Protein Negative Urine Glucose (UA) Normal Urine Ketones Negative Urine Blood Negative Urine Nitrate Negative Urine Bilirubin Negative Urine Urobilinogen Normal Ur Leukocyte Esterase Neg Urine RBC (Auto) 2 Ur Squamous Epith Cells 4 Urine Bacteria Rare Stool Occult Blood Blood Type Antibody Screen 10/07/18 10/07/18 10/07/18 12:41 12:41 13:10 WBC RBC Hgb Hct MCV MCH MCHC RDW Plt Count MPV Neut % (Auto) Lymph % (Auto) [place] % (Auto) Eos % (Auto) Baso % (Auto) Neut # (Auto) Lymph # (Auto) [place] # (Auto) Eos # (Auto) Baso # (Auto) PT INR APTT Sodium 139 Potassium 3.6 Chloride 98 Carbon Dioxide 32 H Anion Gap 13 BUN 27 H Creatinine 1.5 H Est GFR ( Amer) 44 Est GFR (Non-Af Amer) 36 Random Glucose 107 H Calcium 9.1 Phosphorus Magnesium Total Bilirubin 0.5 AST 29 ALT 32 Alkaline Phosphatase 70 Total Protein 7.7 Albumin 4.3 Globulin 3.4 Albumin/Globulin Ratio 1.2 Urine Color Urine Clarity Urine pH Ur Specific [place] Urine Protein Urine Glucose (UA) Urine Ketones Urine Blood Urine Nitrate Urine Bilirubin Urine Urobilinogen Ur Leukocyte Esterase Urine RBC (Auto) Ur Squamous Epith Cells Urine Bacteria Stool Occult Blood Negative Blood Type A POSITIVE Antibody Screen Negative 10/08/18 10/08/18 07:08 07:08 WBC 6.8 RBC 3.66 L Hgb 11.8 Hct 34.7 MCV 94.6 MCH 32.3 H MCHC 34.1 RDW 13.3 Plt Count 168 MPV 10.2 Neut % (Auto) 59.0 Lymph % (Auto) 24.8 [place] % (Auto) 9.7 Eos % (Auto) 5.6 H Baso % (Auto) 0.9 Neut # (Auto) 4.0 Lymph # (Auto) 1.7 [place] # (Auto) 0.7 Eos # (Auto) 0.4 Baso # (Auto) 0.1 PT INR APTT Sodium 140 Potassium 3.1 L Chloride 100 Carbon Dioxide 30 Anion Gap 14 BUN 27 H Creatinine 1.3 H Est GFR ( Amer) 51 Est GFR (Non-Af Amer) 43 Random Glucose 103 Calcium 8.6 Phosphorus 4.2 Magnesium 2.1 Total Bilirubin 0.4 AST 32 ALT 29 Alkaline Phosphatase 61 Total Protein 7.0 Albumin 3.8 Globulin 3.2 Albumin/Globulin Ratio 1.2 Urine Color Urine Clarity Urine pH Ur Specific [place] Urine Protein Urine Glucose (UA) Urine Ketones Urine Blood Urine Nitrate Urine Bilirubin Urine Urobilinogen Ur Leukocyte Esterase Urine RBC (Auto) Ur Squamous Epith Cells Urine Bacteria Stool Occult Blood Blood Type Antibody Screen Assessment & Plan (1) Drug-induced dyspepsia Assessment and Plan: Dyspepsia induced by antibiotics. No evidence of GI bleeding. GI workup not necessary. May follow up in office to arrange screening Colonoscopy- D/W patient. Status: Acute (2) Cardiomyopathy Assessment and Plan: Management per primary physician Status: Acute - Date & Time Date: 10/08/18 Time: 09:29
[2018-10-08 09:29] VITALS: BP 115/73; PULSE 65
[2018-10-08] MEDS ORDERED: Potassium Chloride 20 mEq ER Tab PO ONE (10:00)
[2018-10-08] MEDS ORDERED: Pantoprazole 40 mg EC Tab PO SCH (10:00)
[2018-10-08] MEDS ORDERED: Multiple Vitamins Tab PO SCH (10:00)
[2018-10-08] MEDS ORDERED: metOLazone 2.5 MG TAB PO SCH (10:00)
--- NOTE | 2018-10-08 10:46 | CP.PCM.PN ---
Subjective - Date & Time of Evaluation Date of Evaluation: 10/08/18 Time of Evaluation: 10:46 - Subjective Subjective: PATIENT SEEN AND EXAMINED AT THE BEDSIDE Objective - Vital Signs/Intake and Output Vital Signs (last 24 hours): Temp Pulse Resp BP Pulse Ox 97.7 F 65 20 115/73 100 10/08/18 07:00 10/08/18 09:29 10/08/18 07:00 10/08/18 09:29 10/08/18 07:00 Intake and Output: 10/08/18 10/08/18 06:59 18:59 Intake Total 500 Balance 500 - Medications Medications: Current Medications Albuterol/Ipratropium (Duoneb 3 Mg/0.5 Mg (3 Ml) Ud) 3 ml INH RQ6 [facility] Last Admin: 10/08/18 08:29 Dose: 3 ml Azithromycin (Zithromax) 250 mg PO DAILY [facility]; Protocol Last Admin: 10/08/18 09:24 Dose: 250 mg Bisoprolol Fumarate (Zebeta) 2.5 mg PO DAILY [facility] Last Admin: 10/08/18 09:02 Dose: Not Given Furosemide (Lasix) 40 mg PO DAILY [facility] Last Admin: 10/08/18 09:03 Dose: Not Given Heparin Sodium (Porcine) (Heparin) 5,000 units SC Q12 [facility] Losartan Potassium (Cozaar) 25 mg PO DAILY [facility] Last Admin: 10/08/18 09:02 Dose: Not Given Metolazone (Zaroxolyn) 2.5 mg PO DAILY [facility] Last Admin: 10/08/18 09:02 Dose: Not Given Multivitamins (Hexavitamin) 1 tab PO DAILY [facility] Pantoprazole Sodium (Protonix Ec Tab) 40 mg PO DAILY [facility] Last Admin: 10/08/18 09:24 Dose: 40 mg Promethazine HCl (Phenergan Syrup) 6.25 mg PO Q6 PRN PRN Reason: Cough Last Admin: 10/07/18 22:59 Dose: 6.25 mg - Labs Labs: 10/08/18 07:08 10/08/18 07:08 PT 13.0 SECONDS (9.7-12.2) H 10/07/18 12:41 INR 1.2 10/07/18 12:41 APTT 37 SECONDS (21-34) H 10/07/18 12:41 Assessment and Plan - Assessment and Plan (Free Text) Assessment: FOLLOW UP WITH DR LAROSE IN 1 WEEK -----CALL FOR APPOINTMENT CONTINUE HOME MEDICATION HOLD LASIX FOR NOW AND CONTINUE TO TAKE LASIX ON WEDNESDAY PER DR LAROSE DUE TO LOW BP NEW PRESCRIPTION GIVEN phernagan prn for cough ACTIVITY TOLERATED AND HOME PHYSICAL THERAPY CALL DR LAROSE OR GO TO THE EMERGENCY ROOM IF SYMPTOM RETURN OR WORSENING
== END 2018-10-08 11:10 | disposition home or self-care (01) ==
LOC: C.ER 11:37 → C.5S 14:40
PROVIDERS: ADMIT Internal Medicine; ATTEND Internal Medicine
DX: K21.9 Gastro-esophageal reflux disease without esophagitis (principal); I42.9 Cardiomyopathy, unspecified; I11.0 Hypertensive heart disease with heart failure; I50.22 Chronic systolic (congestive) heart failure; J45.909 Unspecified asthma, uncomplicated; K62.5 Hemorrhage of anus and rectum; Z87.891 Personal history of nicotine dependence; Z95.0 Presence of cardiac pacemaker; Z95.810 Presence of automatic (implantable) cardiac defibrillator; Z99.81 Dependence on supplemental oxygen; Z98.84 Bariatric surgery status
CPT/HCPCS: 36415; 71045; 80053; 81001; 83735; 84100; 85025; 85610; 85730; 86850; 86900; 94640; 97116; 97162; 99285; G0328; G0378; G8978; G8979; J7040

== ENCOUNTER 2019-03-13 09:08 | Emergency (ER) | payer BC ==
[2019-03-13 09:08] VITALS: BMI 30.8
[2019-03-13 09:18] VITALS: RESP 18; O2SAT 100
--- NOTE | 2019-03-13 09:50 | C.PDOC ---
History Of Present Illness 53 y/o female with hx chf,. has aicd, compliant with medications, c/o left sided chest pain that is worse with coughing, for last 3 days with wheezing. cough with white sputum and also has leg swelling. pt tried albuterol mdi with no improvement. no fever. Time Seen by Provider: 03/13/19 09:20 Chief Complaint (Nursing): Shortness Of Breath History Per: Patient History/Exam Limitations: no limitations Onset/Duration Of Symptoms: Days (3) Current Symptoms Are (Timing): Still Present Initiating Event: denies: Out Of Medications Quality: "Pain" Current Respiratory Medications: Albuterol, Other (lasix, zaroxylyn) Past Medical History Reviewed: Historical Data, Nursing Documentation, Vital Signs Vital Signs: Last Vital Signs Temp 99.6 F 03/13/19 09:15 Pulse 62 03/13/19 09:15 Resp 18 03/13/19 09:15 BP 108/73 03/13/19 09:15 Pulse Ox 100 03/13/19 09:15 Primary Care Provider: Cherry Davila - Medical History PMH: Asthma, Back Problems, CHF, Depression, HTN Denies: Diabetes, Hepatitis, HIV, Chronic Kidney Disease, Seizures, Sexually Transmitted Disease Surgical History: Pacemaker (AICD (Left chest wall)) - [facility] Procedures FLUOROSCOPY OF LEFT HEART USING LOW OSMOLAR CONTRAST (03/09/16) LOCAL EXCIS BREAST LES (02/16/03) MEASURE OF CARDIAC SAMPL & PRESSURE, L HEART, PERC APPROACH (03/09/16) Family History: States: Unknown Family Hx - Social History Hx Tobacco Use: Yes Hx Alcohol Use: No Hx Substance Use: No (cocaine abuse) - Immunization History Hx Tetanus Toxoid Vaccination: No Hx Influenza Vaccination: Yes (2018) Hx Pneumococcal Vaccination: Yes Review Of Systems Constitutional: Negative for: Fever, Chills Cardiovascular: Positive for: Chest Pain. Negative for: Palpitations Respiratory: Positive for: Cough, Shortness of Breath, SOB with Excertion, Pleuritic Pain, Wheezing Gastrointestinal: Negative for: Nausea, Vomiting, Abdominal Pain Musculoskeletal: Negative for: Back Pain Skin: Negative for: Rash Neurological: Negative for: Weakness, Numbness Physical Exam - Physical Exam Appears: Non-toxic, No Acute Distress Skin: Warm, Dry Head: Atraumatic, Normacephalic Neck: Supple Cardiovascular: Rhythm Regular, Other (aicd in left chest wall, tender medial left chest wall to palpation) Respiratory: No Decreased Breath Sounds, No Rales, No Rhonchi, No Wheezing Gastrointestinal/Abdominal: Soft, No Tenderness, No Guarding, No Rebound Extremity: Pedal Edema (+1-2 bilateral pitting edema ) Pulses: Left Dorsalis Pedis: Normal, Right Dorsalis Pedis: Normal Neurological/Psych: Oriented x3, Normal Speech, Normal Cognition, Normal Motor, Normal Sensation ED Course And Treatment - Laboratory Results Result Diagrams: 03/13/19 10:17 03/13/19 10:17 O2 Sat by Pulse Oximetry: 100 - Other Rad CXR X-Ray: Read By Radiologist Interpretation: IMPRESSION: Minimal bibasilar atelectasis. Medical Decision Making Medical Decision Makin53 y/o female with chf. c/o sob and pleuritic cp. labs, including trop, bnp, cxr ekg. chf exacerbation vs angina/mi, pna [address] Davila; pt with normal cxr, normal trop and normal bnp. feels a bit better after duo neb. will d/c with saline for nebs. pt has albuterol. pt to f/u with Dr Davila this week. Disposition Discussed With Dr.: Cherry Davila Doctor Will See Patient In The: Hospital Counseled Patient/Family Regarding: Studies Performed (lauro), Diagnosis, Need For Followup - Disposition Referrals: Cherry Davila MD [Staff Provider] - Disposition: HOME/ ROUTINE Disposition Time: 13:08 Condition: GOOD Additional Instructions: Call Dr Davila's office for soonest appointment. Continue to take medications as prescribed. Elevate legs to help with swelling and follow a low salt diet. Use saline for nebulizer machine to help with cough and use albuterol if you feel like you are wheezing. Instructions: Acute Bronchitis, Adult (DC) Forms: [facility] (Telugu), General Discharge Instructions - Clinical Impression Clinical Impression: Bronchitis
[2019-03-13 10:21] LABS: BASO % 0.5 % (0.0-2.0); EOS # 0.3 K/uL (0.0-0.7); EOS % 3.2 % (0.0-4.0); LYMPH # 1.4 K/uL (1.0-4.3); LYMPH % 14.6 % (20.0-40.0); MEAN CELL VOLUME 95.9 fL (81.0-99.0); MEAN CORPUSCULAR HEMOGLOBIN 33.1 pg (27.0-31.0); MEAN CORPUSCULAR HGB CONC 34.5 g/dL (33.0-37.0); MEAN PLATELET VOLUME 9.5 fL (7.2-11.7); MONO # 0.7 K/uL (0.0-0.8); MONO % 7.4 % (0.0-10.0); NEUT # 7.3 K/uL (1.8-7.0); NEUT % 74.3 % (50.0-75.0); RBC 3.62 Mil/uL (3.80-5.20); RED CELL DISTRIBUTION WIDTH 13.5 % (11.5-14.5); WHITE BLOOD COUNT 9.9 K/uL (4.8-10.8)
[2019-03-13 10:45] LABS: ALB/GLOB RATIO 1.2 (1.0-2.1); ALT/SGPT 24 U/L (9-52); AST/SGOT 40 U/L (14-36); BLOOD UREA NITROGEN 19 mg/dL (7-17); CALCIUM 9.5 mg/dl (8.6-10.4); GFR NON-AFRICAN AMERICAN 52
[2019-03-13 11:03] LABS: B-TYPE NATRIURETIC PEPTIDE 540 pg/mL (0-900)
--- NOTE | 2019-03-13 11:23 | RAD ---
Date of service: 2019-03-13 09:59:42 HISTORY: Chest pain COMPARISON: No prior. TECHNIQUE: Chest PA and lateral views FINDINGS: LUNGS: Minimal bibasilar atelectasis PLEURA: No significant pleural effusion identified. No pneumothorax apparent. CARDIOVASCULAR: No aortic atherosclerotic calcification present. Mild cardiomegaly. In situ single lead pacemaker/defibrillator no pulmonary vascular congestion. OSSEOUS STRUCTURES: No significant abnormalities. VISUALIZED UPPER ABDOMEN: Normal. OTHER FINDINGS: None. IMPRESSION: Minimal bibasilar atelectasis.
[2019-03-13] MEDS ORDERED: Albuterol-Ipratrop 3 mg / 0.5 (3 ml) UD INH STA (11:46)
[2019-03-13] MEDS ORDERED: Albuterol-Ipratrop 3 mg / 0.5 (3 ml) UD ONE (12:29)
[2019-03-13 13:33] VITALS: BP 109/74; PULSE 60; TEMP 98.9
--- NOTE | 2019-03-16 03:37 | CARD ---
APPROVED REPORT Date of service: 03/13/2019 EKG Measurement Heart [id number] <Conclusion> Sinus rhythm with marked sinus arrhythmia with occasional ventricular-paced complexes and with occasional premature ventricul Left axis deviation Abnormal ECG
== END 2019-03-13 13:33 | disposition home or self-care (01) ==
LOC: C.ER 09:08
DX: J40 Bronchitis, not specified as acute or chronic (principal); I11.0 Hypertensive heart disease with heart failure; I50.9 Heart failure, unspecified; Z87.891 Personal history of nicotine dependence